=== PATIENT | male | born 1945 | race Caucasian/White ===

== ENCOUNTER 2018-09-29 03:37 | Emergency (ER) | payer MEDICARE, BC ==
[2018-09-29 04:26] LABS: CHLORIDE,CL 104 mmol/L (98-107); SODIUM,NA 142 mmol/L (136-145)
--- NOTE | 2018-09-29 04:45 | EDM.PDOC ---
ED HPI GENERAL MEDICAL PROBLEM - General Chief Complaint: ENT Problem Stated Complaint: nosebleed Time Seen by Provider: 09/29/18 04:13 Source of Information: Reports: Patient History Limitations: Reports: No Limitations - History of Present Illness INITIAL COMMENTS - FREE TEXT/NARRATIVE: Patient comes to ER with right sided nose bleed. Initially started around 8pm last night. Packed it with tissue and was able to stop it. Started again when he removed the packing while getting ready to go to bed. Unable to stop it. Came to ER via EMS. Is on blood thinners. Normally on Coumadin due to heart valve disease. Is currently using Lovenox as he has an angiogram this Wednesday. No history of significant nose bleeds previously. No emesis. No recent colds/nasal trauma. Bleed started after he blew his nose. No other acute changes/complaints. Is on O2 at home and uses CPap at night. - Related Data Allergies Allergy/AdvReac Type Severity Reaction Status Date / Time No Known Allergies Allergy Verified 09/29/18 04:28 Home Meds: Home Meds Albuterol [Ventolin HFA] 2 puff .XX Q4HR PRN 09/29/18 [History] Amoxicillin/Clavulanate K [Augmentin 500-125 MG] 1 tab PO Q8H #15 tab 09/29/18 [ Rx] Enoxaparin [Lovenox] 150 mg SQ BID 09/29/18 [History] Furosemide [Lasix] 20 mg PO DAILY 09/29/18 [History] Losartan/Hydrochlorothiazide [Losartan-HCTZ 100-25 MG] 1 each PO DAILY 09/29/18 [History] Nitroglycerin [Nitrostat] 0.4 mg SL ASDIRECTED PRN 09/29/18 [History] Potassium Chloride 20 meq PO BID 09/29/18 [History] Tiotropium [Spiriva HandiHaler] 18 mcg INH DAILY 09/29/18 [History] Warfarin [Coumadin] 5 mg PO DAILY 09/29/18 [History] Past Medical History Cardiovascular History: Reports: Heart Valve Replacement, Other (See Below) ( aortic and mitral disease.) Endocrine/Metabolic History: Reports: Obesity/BMI 30+ Social & Family History - Tobacco Use Smoking Status *Q: Former Smoker Years of Tobacco use: 52 Used Tobacco, but Quit: Yes Month/Year Tobacco Last Used: 1 Second Hand Smoke Exposure: No ED ROS ENT - Review of Systems Review Of Systems: ROS reveals no pertinent complaints other than HPI. ED EXAM, ENT - Physical Exam Exam: See Below Exam Limited By: No Limitations General Appearance: Alert, No Apparent Distress, Obese Eye Exam: Bilateral Eye: EOMI, PERRL Ears: Normal External Exam Nose: Active Bleeding, Dried Blood, Other (unable to visualized bleed in left nare. No bleeding right nare) Mouth/Throat: Normal Lips, Other (some clotted blood noted at back of throat. ) Head: Atraumatic, Normocephalic Neck: Supple Respiratory/Chest: No Respiratory Distress, Lungs Clear, Normal Breath Sounds, No Accessory Muscle Use Cardiovascular: Other (regular rhythm overall, some premature beats noted. ) GI/Abdominal: Soft, Non-Tender (Male) Exam: Deferred Rectal (Males) Exam: Deferred Back: No: CVA Tenderness (L), CVA Tenderness (R), Muscle Spasm Extremities: Normal Capillary Refill Neurological: Alert, Oriented, Normal Cognition Psychiatric: Normal Affect, Normal Mood Skin: Warm, Dry, Intact, Normal Color ED ENT PROCEDURES - Epistaxis Procedure Indication: Epistaxis, Uncontrolled Recent anticoagulants/antiplatlets: Yes Uncontrolled HTN: No Recent septal/nasal surgery: No Site of bleeding: Left Nare, Posterior Clearing of clots: Patient Blew Nose Posterior packing: Long Inflatable Nasal Tampon Complications: No Course - Vital Signs Last Recorded V/S: Last Vital Signs Temp 36.8 C 09/29/18 03:38 Pulse 60 09/29/18 03:38 Resp 20 09/29/18 03:38 BP 159/104 H 09/29/18 03:38 Pulse Ox 94 L 09/29/18 03:38 - Orders/Labs/Meds Labs: Laboratory Tests 09/29/18 09/29/18 09/29/18 Range/Units 04:05 04:05 04:05 WBC 6.8 (4.0-10.2) K/uL RBC 3.84 L (4.33-5.41) M/uL Hgb 11.7 L (13.1-16.8) g/dL Hct 36.8 L (39.0-49.0) % MCV 95.8 (84.0-98.0) fL MCH 30.5 (28.2-33.3) pg MCHC 31.8 (31.7-36.0) g/dL RDW 14.3 H (11.2-14.1) % Plt Count 230 (150-350) K/uL Neut % (Auto) 60.4 (45.0-80.0) % Lymph % (Auto) 22.0 (10.0-50.0) % [place] % (Auto) 12.6 (2.0-14.0) % Eos % (Auto) 4.6 (0.0-5.0) % Baso % (Auto) 0.4 (0.0-2.0) % Neut # (Auto) 4.09 (1.40-7.00) K/uL Lymph # (Auto) 1.49 (0.50-3.50) K/uL [place] # (Auto) 0.85 (0.00-1.00) K/uL Eos # (Auto) 0.31 (0.00-0.50) K/uL Baso # (Auto) 0.03 (0.00-0.20) K/uL PT 15.6 H (9.5-12.0) SEC INR 1.4 Sodium 142 (136-145) mmol/L Potassium 3.7 (3.5-5.1) mmol/L Chloride 104 (98-107) mmol/L Carbon Dioxide 31.5 (21.0-32.0) mmol/L BUN 26 H (7-18) mg/dL Creatinine 0.86 (0.51-1.17) mg/dL Est Cr Clr Drug Dosing TNP Estimated GFR (MDRD) > 60 mL/min Glucose 120 H (74-106) mg/dL Calcium 9.4 (8.5-10.1) mg/dL Total Bilirubin 0.7 (0.2-1.0) mg/dL AST 25 (15-37) U/L ALT 25 (12-78) U/L Alkaline Phosphatase 90 (46-116) IU/L Total Protein 7.9 (6.4-8.2) g/dL Albumin 3.6 (3.4-5.0) g/dL - Re-Assessments/Exams Free Text/Narrative Re-Assessment/Exam: 09/29/18 04:49 Nasal packing performed with inflatable balloon. Bleed appeared to stop. Patient observed for one hour to see if signs of bleeding from right nare or posterior pharynx. Call placed to [facility] and discussed patient with Dr. King from ENT. He offered to see the patient on Wednesday morning, 10am, in clinic. This is right before patient was to present for angiogram (11am). will remove the packing and re-examine the patient. Departure - Departure Time of Disposition: 05:45 Disposition: Home, Self-Care 01 Condition: Good Clinical Impression: Epistaxis - Discharge Information *PRESCRIPTION DRUG MONITORING PROGRAM REVIEWED*: Not Applicable *COPY OF PRESCRIPTION DRUG MONITORING REPORT IN PATIENT KELLIE: Not Applicable Prescriptions: Amoxicillin/Clavulanate K [Augmentin 500-125 MG] 1 tab PO Q8H #15 tab Instructions: Nosebleed, Adult Referrals: Filipe Stover PA [Primary Care Provider] - Forms: ED Department Discharge Additional Instructions: Call [facility] appointment line this morning and make an appointment to see from ENT at 10am on Wednesday. Tell them that you were in the ER and we spoke to and he said this was ok and formulated this plan. He will remove the packing and look at your nose prior to you having to report for the angiogram. supervisor of operations antibiotics (recommended by ) and take them as directed. You were given a 5 day supply. Ask if you should have a longer course of therapy. Follow up as needed if you have more bleeding or other worsening problems.
== END 2018-09-29 05:50 | disposition home or self-care (01) ==
LOC: LL.ED 03:37
DX: R04.0 Epistaxis (principal); Z99.81 Dependence on supplemental oxygen; Z79.899 Other long term (current) drug therapy; Z79.01 Long term (current) use of anticoagulants; Z87.891 Personal history of nicotine dependence; Z95.4 Presence of other heart-valve replacement
CPT/HCPCS: 30901; 30903; 30905; 36415; 80053; 85025; 85610; 99283; 99284

== ENCOUNTER 2019-11-06 16:07 | Inpatient (IN) | payer MEDICARE, BC ==
[2019-11-06 17:18] LABS: CHLORIDE,CL 107 mmol/L (98-107); SODIUM,NA 145 mmol/L (136-145)
[2019-11-06] MEDS ORDERED: cefTRIAXone 1 GM Vial IM ONE (17:37)
--- NOTE | 2019-11-06 17:37 | EDM.PDOC ---
ED HPI GENERAL MEDICAL PROBLEM - General Chief Complaint: Respiratory Problem Stated Complaint: pneumonia Time Seen by Provider: 11/06/19 16:29 Source of Information: Reports: Patient History Limitations: Reports: No Limitations - History of Present Illness INITIAL COMMENTS - FREE TEXT/NARRATIVE: Pt presents to ER after being seen in clinic Concerned about pneumonia Pt with COPD and on home oxygen Increasing SOB with exertion No fever Has hx/o significant edema See med list Onset: Gradual Duration: Week(s):, Getting Worse Location: Reports: Chest Associated Symptoms: Reports: Cough, Shortness of Breath Treatments CAMPUS AMBASSADOR: Reports: Acetaminophen denies Pain Score (Numeric/FACES): 0 - Related Data Allergies Allergy/AdvReac Type Severity Reaction Status Date / Time atorvastatin [From Lipitor] Allergy Bleeding Verified 11/06/19 16:19 celecoxib [From Celebrex] Allergy Bleeding Verified 11/06/19 16:19 Home Meds: Home Meds Albuterol [Ventolin HFA] 2 puff .XX Q4HR PRN 09/29/18 [History] Furosemide [Lasix] 40 mg PO DAILY 09/29/18 [History] Losartan/Hydrochlorothiazide [Losartan-HCTZ 100-25 MG] 1 each PO DAILY 09/29/18 [History] Nitroglycerin [Nitrostat] 0.4 mg SL ASDIRECTED PRN 09/29/18 [History] Potassium Chloride 20 meq PO BID 09/29/18 [History] Acetaminophen [Acetaminophen Extra Strength] 2 tab PO TID 11/06/19 [History] Amoxicillin/Clavulanate K [Augmentin 500-125 MG] 1 tab PO BID 11/06/19 [History] Lutein/Minerals/Vit A,C & E [Ocuvite] 1 tab PO DAILY 11/06/19 [History] Multivitamin-Min/Iron/FA/Vit K [Multi-Day Plus Minerals Tablet] 1 tab PO BEDTIME 11/06/19 [History] Umeclidinium Brm/Vilanterol Tr [Anoro Ellipta 62.5-25 MCG] 1 puff INH DAILY 05/19 [History] Warfarin [Coumadin] 4 mg PO DAILY 11/06/19 [History] Past Medical History HEENT History: Reports: Other (See Below) Other HEENT History: H/O nosebleeds. Cardiovascular History: Reports: Heart Valve Replacement, Other (See Below) ( aortic and mitral disease.) Respiratory History: Reports: COPD Musculoskeletal History: Reports: Arthritis, Fracture Endocrine/Metabolic History: Reports: Obesity/BMI 30+ - Past Surgical History GI Surgical History: Reports: Colonoscopy Musculoskeletal Surgical History: Reports: Other (See Below) Other Musculoskeletal Surgeries/Procedures:: R foot fractures with surgical repair. ED ROS GENERAL - Review of Systems Review Of Systems: See Below Respiratory: Reports: Shortness of Breath, Cough Cardiovascular: Reports: No Symptoms, Dyspnea on Exertion, Edema GI/Abdominal: Reports: No Symptoms Neurological: Reports: No Symptoms ED EXAM, GENERAL - Physical Exam Exam: See Below Exam Limited By: No Limitations General Appearance: Mild Distress Throat/Mouth: Normal Oropharynx Neck: Supple Respiratory/Chest: Decreased Breath Sounds, Rhonchi Cardiovascular: Regular Rate, Rhythm GI/Abdominal: Non-Tender Extremities: Pedal Edema (4+ edema bilaterally) Neurological: No Motor/Sensory Deficits Course - Vital Signs Last Recorded V/S: Last Vital Signs Temp 98.9 F 11/06/19 16:10 Pulse 77 11/06/19 16:10 Resp 30 H 11/06/19 16:10 BP 161/73 H 11/06/19 16:10 Pulse Ox 96 11/06/19 16:10 - Orders/Labs/Meds Orders: Active Orders 24 hr Category Date Time Status CULTURE BLOOD [BC] Stat Lab 11/06/19 16:45 Received CULTURE BLOOD [BC] Stat Lab 11/06/19 17:08 Received Blood Culture x2 Reflex Set [OM.PC] Stat Oth 11/06/19 16:29 Ordered Labs: Laboratory Tests 11/06/19 11/06/19 11/06/19 Range/Units 16:45 16:45 16:45 WBC 8.2 (4.0-10.2) K/uL RBC 3.44 L (4.33-5.41) M/uL Hgb 10.2 L D (13.1-16.8) g/dL Hct 33.7 L (39.0-49.0) % MCV 98.0 (84.0-98.0) fL MCH 29.7 (28.2-33.3) pg MCHC 30.3 L (31.7-36.0) g/dL RDW 15.6 H (11.2-14.1) % Plt Count 162 (150-350) K/uL Neut % (Auto) 75.8 (45.0-80.0) % Lymph % (Auto) 9.5 L (10.0-50.0) % [place] % (Auto) 9.8 (2.0-14.0) % Eos % (Auto) 4.5 (0.0-5.0) % Baso % (Auto) 0.4 (0.0-2.0) % Neut # (Auto) 6.19 (1.40-7.00) K/uL Lymph # (Auto) 0.78 (0.50-3.50) K/uL [place] # (Auto) 0.80 (0.00-1.00) K/uL Eos # (Auto) 0.37 (0.00-0.50) K/uL Baso # (Auto) 0.03 (0.00-0.20) K/uL PT (9.5-12.0) SEC INR Sodium 145 (136-145) mmol/L Potassium 4.0 (3.5-5.1) mmol/L Chloride 107 (98-107) mmol/L Carbon Dioxide 30.1 (21.0-32.0) mmol/L BUN 24 H (7-18) mg/dL Creatinine 0.84 (0.51-1.17) mg/dL Est Cr Clr Drug Dosing 84.55 mL/min Estimated GFR (MDRD) > 60 mL/min Glucose 101 (74-106) mg/dL Lactic Acid 0.7 (0.4-2.0) mmol/L Calcium 9.0 (8.5-10.1) mg/dL Total Bilirubin 0.7 (0.2-1.0) mg/dL AST 19 (15-37) U/L ALT 16 (12-78) U/L Alkaline Phosphatase 75 (46-116) IU/L NT-Pro-B Natriuret Pep 1769 H (0-125) pg/mL Total Protein 7.4 (6.4-8.2) g/dL Albumin 3.3 L (3.4-5.0) g/dL 11/06/19 Range/Units 16:45 WBC (4.0-10.2) K/uL RBC (4.33-5.41) M/uL Hgb (13.1-16.8) g/dL Hct (39.0-49.0) % MCV (84.0-98.0) fL MCH (28.2-33.3) pg MCHC (31.7-36.0) g/dL RDW (11.2-14.1) % Plt Count (150-350) K/uL Neut % (Auto) (45.0-80.0) % Lymph % (Auto) (10.0-50.0) % [place] % (Auto) (2.0-14.0) % Eos % (Auto) (0.0-5.0) % Baso % (Auto) (0.0-2.0) % Neut # (Auto) (1.40-7.00) K/uL Lymph # (Auto) (0.50-3.50) K/uL [place] # (Auto) (0.00-1.00) K/uL Eos # (Auto) (0.00-0.50) K/uL Baso # (Auto) (0.00-0.20) K/uL PT 19.7 H (9.5-12.0) SEC INR 2.0 Sodium (136-145) mmol/L Potassium (3.5-5.1) mmol/L Chloride (98-107) mmol/L Carbon Dioxide (21.0-32.0) mmol/L BUN (7-18) mg/dL Creatinine (0.51-1.17) mg/dL Est Cr Clr Drug Dosing mL/min Estimated GFR (MDRD) mL/min Glucose (74-106) mg/dL Lactic Acid (0.4-2.0) mmol/L Calcium (8.5-10.1) mg/dL Total Bilirubin (0.2-1.0) mg/dL AST (15-37) U/L ALT (12-78) U/L Alkaline Phosphatase (46-116) IU/L NT-Pro-B Natriuret Pep (0-125) pg/mL Total Protein (6.4-8.2) g/dL Albumin (3.4-5.0) g/dL - Re-Assessments/Exams Free Text/Narrative Re-Assessment/Exam: 11/06/19 17:35 Pt given Rocephin and Solu-medrol in ER See lab and CXR reports Departure - Departure Time of Disposition: 18:00 Disposition: Home, Self-Care 01 Clinical Impression: COPD exacerbation - Discharge Information *PRESCRIPTION DRUG MONITORING PROGRAM REVIEWED*: Not Applicable *COPY OF PRESCRIPTION DRUG MONITORING REPORT IN PATIENT KELLIE: Not Applicable Instructions: Chronic Obstructive Pulmonary Disease, [id number], Chronic Obstructive Pulmonary Disease Exacerbation, [id number] Referrals: PCP,None [Primary Care Provider] - Additional Instructions: Rx Z-emgan Rx Medrol dose megan Follow up in clinic Sepsis Event Note - Evaluation Sepsis Screening Result: No Definite Risk - Focused Exam Vital Signs: Vital Signs Temp Pulse Resp BP Pulse Ox 11/06/19 16:10 98.9 F 77 30 H 161/73 H 96 Date Exam was Performed: 11/06/19 Time Exam was Performed: 17:32 - My Orders Last 24 Hours: My Active Orders 11/06/19 16:29 Blood Culture x2 Reflex Set [OM.PC] Stat 11/06/19 16:45 CULTURE BLOOD [BC] Stat 11/06/19 17:08 CULTURE BLOOD [BC] Stat - Assessment/Plan Last 24 Hours: My Active Orders 11/06/19 16:29 Blood Culture x2 Reflex Set [OM.PC] Stat 11/06/19 16:45 CULTURE BLOOD [BC] Stat 11/06/19 17:08 CULTURE BLOOD [BC] Stat
[2019-11-06] MEDS ORDERED: methylPREDNISolone Sodium Succinate 125 MG/2 ML SDV IM ONE (17:38)
[2019-11-06] MEDS ORDERED: Nitroglycerin 0.4 MG Tab.SL SL PRN (18:55)
[2019-11-06] MEDS ORDERED: Albuterol 8 GM Inhaler INH PRN (18:55)
[2019-11-06] MEDS ORDERED: Albuterol/Ipratropium 3.0-0.5 MG/3 ML Neb Soln NEB PRN (19:00)
--- NOTE | 2019-11-06 19:09 | PCM.HP.2 ---
H&P History of Present Illness - General Date of Service: 11/06/19 Admit Problem/Dx: Admission Diagnosis/Problem Admission Diagnosis/Problem COPD, Moderate chronic obstructive pulmonary disease Source of Information: Patient History Limitations: Reports: No Limitations - History of Present Illness Initial Comments - Free Text/Narative: See ER note for details Onset of Symptoms: Reports: Gradual Duration of Symptoms: Reports: Day(s):, Getting Worse Location: Reports: Chest Associated Symptoms: Reports: Cough, Shortness of Breath denies Pain Score (Numeric/FACES): 0 - Related Data Allergies/Adverse Reactions: Allergies Allergy/AdvReac Type Severity Reaction Status Date / Time atorvastatin [From Lipitor] Allergy Bleeding Verified 11/06/19 16:19 celecoxib [From Celebrex] Allergy Bleeding Verified 11/06/19 16:19 Home Medications: Home Meds Albuterol [Ventolin HFA] 2 puff .XX Q4HR PRN 09/29/18 [History] Furosemide [Lasix] 40 mg PO DAILY 09/29/18 [History] Losartan/Hydrochlorothiazide [Losartan-HCTZ 100-25 MG] 1 each PO DAILY 09/29/18 [History] Nitroglycerin [Nitrostat] 0.4 mg SL ASDIRECTED PRN 09/29/18 [History] Potassium Chloride 20 meq PO BID 09/29/18 [History] Acetaminophen [Acetaminophen Extra Strength] 2 tab PO TID 11/06/19 [History] Amoxicillin/Clavulanate K [Augmentin 500-125 MG] 1 tab PO BID 11/06/19 [History] Lutein/Minerals/Vit A,C & E [Ocuvite] 1 tab PO DAILY 11/06/19 [History] Multivitamin-Min/Iron/FA/Vit K [Multi-Day Plus Minerals Tablet] 1 tab PO BEDTIME 11/06/19 [History] Umeclidinium Brm/Vilanterol Tr [Anoro Ellipta 62.5-25 MCG] 1 puff INH DAILY 05/19 [History] Warfarin [Coumadin] 4 mg PO DAILY 11/06/19 [History] Past Medical History HEENT History: Reports: Other (See Below) Other HEENT History: H/O nosebleeds. Cardiovascular History: Reports: Heart Valve Replacement, Other (See Below) ( aortic and mitral disease.) Respiratory History: Reports: COPD Musculoskeletal History: Reports: Arthritis, Fracture Endocrine/Metabolic History: Reports: Obesity/BMI 30+ - Past Surgical History GI Surgical History: Reports: Colonoscopy Musculoskeletal Surgical History: Reports: Other (See Below) Other Musculoskeletal Surgeries/Procedures:: R foot fractures with surgical repair. H&P Review of Systems - Review of Systems: Review Of Systems: See Below Pulmonary: Reports: Shortness of Breath, Cough Cardiovascular: Reports: Dyspnea on Exertion, Edema Gastrointestinal: Reports: No Symptoms Exam - Exam Exam: See Below - Vital Signs Vital Signs: Last Vital Signs Temp 98.9 F 11/06/19 16:10 Pulse 77 11/06/19 16:10 Resp 30 H 11/06/19 16:10 BP 161/73 H 11/06/19 16:10 Pulse Ox 96 11/06/19 16:10 Weight: 354 lb - Exam Quality Assessment: Supplemental Oxygen General: Alert, Oriented, Mild Distress HEENT: Mucosa Moist & [place] Neck: Supple Lungs: Decreased Breath Sounds, Rhonchi Cardiovascular: Regular Rate GI/Abdominal Exam: Non-Tender Extremities: Pedal Edema, Other (4 + edema) Neurological: Normal Speech Neuro Extensive - Mental Status: Alert, Oriented x3, Normal Mood/Affect - Patient Data Lab Results Last 24 hrs: Laboratory Results - last 24 hr 11/06/19 11/06/19 11/06/19 Range/Units 16:45 16:45 16:45 WBC 8.2 (4.0-10.2) K/uL RBC 3.44 L (4.33-5.41) M/uL Hgb 10.2 L D (13.1-16.8) g/dL Hct 33.7 L (39.0-49.0) % MCV 98.0 (84.0-98.0) fL MCH 29.7 (28.2-33.3) pg MCHC 30.3 L (31.7-36.0) g/dL RDW 15.6 H (11.2-14.1) % Plt Count 162 (150-350) K/uL Neut % (Auto) 75.8 (45.0-80.0) % Lymph % (Auto) 9.5 L (10.0-50.0) % [place] % (Auto) 9.8 (2.0-14.0) % Eos % (Auto) 4.5 (0.0-5.0) % Baso % (Auto) 0.4 (0.0-2.0) % Neut # (Auto) 6.19 (1.40-7.00) K/uL Lymph # (Auto) 0.78 (0.50-3.50) K/uL [place] # (Auto) 0.80 (0.00-1.00) K/uL Eos # (Auto) 0.37 (0.00-0.50) K/uL Baso # (Auto) 0.03 (0.00-0.20) K/uL PT (9.5-12.0) SEC INR Sodium 145 (136-145) mmol/L Potassium 4.0 (3.5-5.1) mmol/L Chloride 107 (98-107) mmol/L Carbon Dioxide 30.1 (21.0-32.0) mmol/L BUN 24 H (7-18) mg/dL Creatinine 0.84 (0.51-1.17) mg/dL Est Cr Clr Drug Dosing 84.55 mL/min Estimated GFR (MDRD) > 60 mL/min Glucose 101 (74-106) mg/dL Lactic Acid 0.7 (0.4-2.0) mmol/L Calcium 9.0 (8.5-10.1) mg/dL Total Bilirubin 0.7 (0.2-1.0) mg/dL AST 19 (15-37) U/L ALT 16 (12-78) U/L Alkaline Phosphatase 75 (46-116) IU/L NT-Pro-B Natriuret Pep 1769 H (0-125) pg/mL Total Protein 7.4 (6.4-8.2) g/dL Albumin 3.3 L (3.4-5.0) g/dL 11/06/19 Range/Units 16:45 WBC (4.0-10.2) K/uL RBC (4.33-5.41) M/uL Hgb (13.1-16.8) g/dL Hct (39.0-49.0) % MCV (84.0-98.0) fL MCH (28.2-33.3) pg MCHC (31.7-36.0) g/dL RDW (11.2-14.1) % Plt Count (150-350) K/uL Neut % (Auto) (45.0-80.0) % Lymph % (Auto) (10.0-50.0) % [place] % (Auto) (2.0-14.0) % Eos % (Auto) (0.0-5.0) % Baso % (Auto) (0.0-2.0) % Neut # (Auto) (1.40-7.00) K/uL Lymph # (Auto) (0.50-3.50) K/uL [place] # (Auto) (0.00-1.00) K/uL Eos # (Auto) (0.00-0.50) K/uL Baso # (Auto) (0.00-0.20) K/uL PT 19.7 H (9.5-12.0) SEC INR 2.0 Sodium (136-145) mmol/L Potassium (3.5-5.1) mmol/L Chloride (98-107) mmol/L Carbon Dioxide (21.0-32.0) mmol/L BUN (7-18) mg/dL Creatinine (0.51-1.17) mg/dL Est Cr Clr Drug Dosing mL/min Estimated GFR (MDRD) mL/min Glucose (74-106) mg/dL Lactic Acid (0.4-2.0) mmol/L Calcium (8.5-10.1) mg/dL Total Bilirubin (0.2-1.0) mg/dL AST (15-37) U/L ALT (12-78) U/L Alkaline Phosphatase (46-116) IU/L NT-Pro-B Natriuret Pep (0-125) pg/mL Total Protein (6.4-8.2) g/dL Albumin (3.4-5.0) g/dL Result Diagrams: 11/06/19 16:45 11/06/19 16:45 Sepsis Event Note - Evaluation Sepsis Screening Result: No Definite Risk - Focused Exam Vital Signs: Vital Signs Temp Pulse Resp BP Pulse Ox 11/06/19 16:10 98.9 F 77 30 H 161/73 H 96 Date Exam was Performed: 11/06/19 Time Exam was Performed: 19:06 - Problem List (1) COPD exacerbation SNOMED Code(s): 140587463 ICD Code: J44.1 - CHRONIC OBSTRUCTIVE PULMONARY DISEASE W (ACUTE) EXACERBATION Status: Acute Current Visit: Yes Problem List Initiated/Reviewed/Updated: Yes Orders Last 24hrs: Active Orders 24 hr Category Date Time Status Patient Status [ADT] Routine ADT 11/06/19 19:00 Ordered Intake and Output [RC] QSHIFT Care 11/06/19 19:01 Ordered Oxygen Therapy [RC] PRN Care 11/06/19 18:53 Ordered Oxygen Therapy [RC] PRN Care 11/06/19 19:00 Ordered Pulse Oximetry [RC] PRN Care 11/06/19 19:01 Ordered RT Aerosol Therapy [RC] ASDIRECTED Care 11/06/19 19:05 Ordered Up With Assistance [RC] ASDIRECTED Care 11/06/19 19:00 Ordered VTE/DVT Education [RC] PER UNIT ROUTINE Care 11/06/19 18:53 Ordered VTE/DVT Education [RC] PER UNIT ROUTINE Care 11/06/19 19:00 Ordered Vital Signs [RC] Q4H Care 11/06/19 18:53 Ordered Vital Signs [RC] Q4H Care 11/06/19 19:00 Ordered CBC WITH AUTO DIFF [HEME] AM Lab 11/07/19 05:11 Ordered COMPREHENSIVE METABOLIC PN,CMP [CHEM] AM Lab 11/07/19 05:11 Ordered CULTURE BLOOD [BC] Stat Lab 11/06/19 16:45 Received CULTURE BLOOD [BC] Stat Lab 11/06/19 17:08 Received Acetaminophen [Tylenol Extra Strength] Med 11/07/19 08:00 Ordered 1,000 mg PO TID Albuterol [Ventolin HFA] Med 11/06/19 18:55 Ordered 2 puff INH Q4HR PRN Albuterol/Ipratropium [DuoNeb 3.0-0.5 MG/3 ML] Med 11/06/19 19:00 Ordered 3 ml NEB Q4H PRN Furosemide [Lasix] Med 11/07/19 08:00 Ordered 40 mg IVPUSH BID Losartan/Hydrochlorothiazide [Losartan-HCTZ 100-25 MG] Med 11/07/19 08:00 Ordered 1 each PO DAILY Lutein/Minerals/Vit A,C & E [Ocuvite] Med 11/07/19 08:00 Ordered 1 tab PO DAILY Multivitamin-Min/Iron/FA/Vit K [Multi-Day Plus Minerals Med 11/06/19 20:00 Ordered Tablet] 1 tab PO BEDTIME Nitroglycerin [Nitrostat] Med 11/06/19 18:55 Ordered 0.4 mg SL ASDIRECTED PRN Potassium Chloride [Potassium Chloride] Med 11/07/19 08:00 Ordered 20 meq PO BID Umeclidinium Brm/Vilanterol Tr [Anoro Ellipta 62.5-25 Med 11/07/19 08:00 Ordered MCG] 1 puff INH DAILY Warfarin Med 11/07/19 08:00 Ordered 4 mg PO DAILY cefTRIAXone [Rocephin] 1 gm Med 11/06/19 19:00 Ordered Sodium Chloride 0.9% [Normal Saline] 100 ml IV Q24H methylPREDNISolone Sod Succ [Solu-MEDROL] Med 11/06/19 19:00 Ordered 125 mg IVPUSH Q12H Blood Culture x2 Reflex Set [OM.PC] Stat Oth 11/06/19 16:29 Ordered Resuscitation Status Routine Resus Stat 11/06/19 18:53 Ordered Medication Orders Acetaminophen (Tylenol Extra Strength) 1,000 mg PO TID SRIDHAR Albuterol (Ventolin Hfa) gm INH Q4HR PRN PRN Reason: Shortness of Breath Albuterol/Ipratropium (Duoneb 3.0-0.5 Mg/3 Ml) 3 ml NEB Q4H PRN PRN Reason: Dyspnea Furosemide (Lasix) 40 mg IVPUSH BID SRIDHAR Ceftriaxone Sodium 1 gm/ (Sodium Chloride) 100 mls @ 200 mls/hr IV Q24H SRIDHAR Methylprednisolone Sodium Succinate (Solu-Medrol) 125 mg IVPUSH Q12H SRIDHAR Nitroglycerin (Nitrostat) 0.4 mg SL ASDIRECTED PRN PRN Reason: Chest Pain Non-Formulary Medication (Losartan/Hydrochlorothiazide [Losartan-Hctz 100-25 Mg] ) 1 each PO DAILY SRIDHAR Non-Formulary Medication (Lutein/Minerals/Vit A,C & E [Ocuvite]) 1 tab PO DAILY SRIDHAR Non-Formulary Medication (Multivitamin-Min/Iron/Fa/Vit K [Multi-Day Plus Minerals Tablet]) 1 tab PO BEDTIME SRIDHAR Non-Formulary Medication (Potassium Chloride [Potassium Chloride]) 20 meq PO BID SRIDHAR Non-Formulary Medication (Warfarin) 4 mg PO DAILY SRIDHAR Umeclidinium/Vilanterol (Anoro Ellipta 62.5-25 Mcg) mcg INH DAILY SRIDHAR Assessment/Plan Comment:: Imp: COPD exacerbation Plan: IV antibiotics IV Lasix IV Solu-medrol
[2019-11-06] MEDS: cefTRIAXone 1 GM in Sodium Chloride 0.9% 100 ML IV SCH (19:16)
[2019-11-06] MEDS: methylPREDNISolone Sodium Succinate 125 MG/2 ML SDV IVPUSH SCH (19:17)
[2019-11-06] MEDS ORDERED: Non-Formulary Medication 1 Each (Multivitamin-Min/Iron/Fa/Vit K [Multi-Day Plus Minerals T PO SCH (20:00)
[2019-11-06] MEDS: Furosemide 40 MG/4 ML VIAL IVPUSH SCH (20:04)
[2019-11-06] MEDS ORDERED: Warfarin 2 MG Tab PO ONE (21:51)
[2019-11-07 07:45] LABS: CHLORIDE,CL 106 mmol/L (98-107); SODIUM,NA 144 mmol/L (136-145)
[2019-11-07] MEDS ORDERED: Non-Formulary Medication 1 Each (Lutein/Minerals/Vit A,C & E [Ocuvite] 1 TAB) PO SCH (08:00)
[2019-11-07] MEDS ORDERED: Hydrochlorothiazide 25 MG Tab PO SCH (08:00)
[2019-11-07] MEDS ORDERED: Non-Formulary Medication 1 Each (Potassium Chloride [Potassium Chloride] 20 MEQ) PO SCH (08:00)
[2019-11-07] MEDS ORDERED: Non-Formulary Medication 1 Each (Warfarin 4 MG) PO SCH (08:00)
[2019-11-07] MEDS ORDERED: Potassium Chloride 20 MEQ Tab.ER PO SCH (08:13)
[2019-11-07] MEDS: Umeclidinium Brm/Vilanterol Tr 62.5-25 MCG 7 Puff Inhaler INH SCH (08:16)
[2019-11-07] MEDS: methylPREDNISolone Sodium Succinate 125 MG/2 ML SDV IVPUSH SCH ×2 (08:16→19:25)
[2019-11-07] MEDS: Furosemide 40 MG/4 ML VIAL IVPUSH SCH ×3 (08:17→18:18)
[2019-11-07] MEDS: Acetaminophen 500 MG Tab PO SCH ×3 (08:18→18:18)
[2019-11-07] MEDS: Losartan 50 MG Tab PO SCH (08:50)
[2019-11-07] MEDS: Lutein/Minerals/Vitamin C/Vitamin E Acetate Cap PO SCH (08:52)
[2019-11-07] MEDS ORDERED: Albuterol 0.083% 2.5 MG/3 ML Neb Soln INH PRN (10:00)
[2019-11-07] MEDS ORDERED: Isopropyl Myristate/Mineral Oil/Water Lotion 240 ML Bottle TOP SCH (11:15)
[2019-11-07] MEDS: Potassium Chloride 20 MEQ Tab.ER PO SCH ×2 (11:39→18:21)
[2019-11-07] MEDS: Dextromethorphan/guaiFENesin 600-30 MG Tab.ER PO SCH ×2 (11:39→18:19)
--- NOTE | 2019-11-07 12:20 | PCM.PN ---
- General Info Date of Service: 11/07/19 Admission Dx/Problem (Free Text): Admission Diagnosis/Problem 1. Bilateral pneumonia 2. O2 dependent COPD exacerbation with hypoxia 3. CHF Functional Status: Reports: Pain Controlled, Tolerating Diet, Ambulating, Urinating, Incentive Spirometry. Denies: New Symptoms Pain Score: 0 - Review of Systems General: Reports: Weakness (Mild generalized). Denies: Fever, Fatigue, Malaise , Chills, Night Sweats HEENT: Reports: Glasses. Denies: Contact Lenses, Dysphasia, Ear Pain, Eye Pain , Headaches, Post Nasal Drip, Sinus Congestion, Sore Throat, Rhinitis, Visual Changes Pulmonary: Reports: Shortness of Breath, Cough, Wheezing. Denies: Pleuritic Chest Pain, Sputum, Hemoptysis Cardiovascular: Reports: Dyspnea on Exertion, Edema (Severe dependent). Denies : Chest Pain, Palpitations, Orthopnea, Lightheadedness Gastrointestinal: Reports: No Symptoms, Other (Normal bowel movement today). Denies: Abdominal Pain, Constipation, Decreased Appetite, Diarrhea, Difficulty Swallowing, Flatus, Hematochezia, Melena, Nausea, Vomiting Genitourinary: Reports: No Symptoms. Denies: Dysuria, Frequency, Burning, Pain , Urgency, Hematuria, Retention, Flank Pain Musculoskeletal: Reports: No Symptoms. Denies: Neck Pain, Shoulder Pain, Arm Pain, Back Pain, Leg Pain Skin: Reports: No Symptoms. Denies: Diaphoresis, Bruising Neurological: Reports: Difficulty Walking (Stable with current walker use), Weakness. Denies: Confusion, Dizziness, Headache, Numbness, Paresthesia, Change in Speech, Gait Disturbance Psychiatric: Reports: No Symptoms. Denies: Confusion, Depression, Anxiety, Agitation, Cravings, Hallucinations - Patient Data Vitals - Most Recent: Last Vital Signs Temp 36.3 C 11/07/19 12:00 Pulse 58 L 11/07/19 12:00 Resp 17 11/07/19 12:00 BP 156/78 H 11/07/19 12:00 Pulse Ox 97 11/07/19 12:00 Vital Signs - 24 hr 11/06/19 11/06/19 11/07/19 16:10 20:00 00:00 Temperature [ 37.2 C 36.2 C 37.1 C Temporal] Pulse, 77 Peripheral [ Apical] Pulse, 83 Peripheral [ Pulse Oximetry] Respiratory 30 H 20 24 H Rate Blood Pressure Blood Pressure 161/73 H 159/88 H 132/66 [Right Upper Arm] O2 Sat by Pulse 96 97 96 Oximetry 11/07/19 11/07/19 11/07/19 04:00 08:00 08:50 Temperature [ 36.4 C 36.3 C Temporal] Pulse, Peripheral [ Apical] Pulse, 65 61 Peripheral [ Pulse Oximetry] Respiratory 24 H 18 Rate Blood Pressure 157/79 H Blood Pressure 157/69 H 182/77 H [Right Upper Arm] O2 Sat by Pulse 96 96 Oximetry 11/07/19 12:00 Temperature [ 36.3 C Temporal] Pulse, Peripheral [ Apical] Pulse, 58 L Peripheral [ Pulse Oximetry] Respiratory 17 Rate Blood Pressure Blood Pressure 156/78 H [Right Upper Arm] O2 Sat by Pulse 97 Oximetry Weight - Most Recent: 165.244 kg I&O - Last 24 Hours: Intake & Output 11/06/19 11/07/19 11/07/19 22:59 06:59 14:59 Intake Total 051 243 0519 Output Total 675 208 9575 Balance -551 -200 -560 Imaging Impressions - Last 24 Hours: None Lab Results Last 24 Hours: Laboratory Results - last 24 hr 11/06/19 11/06/19 11/06/19 Range/Units 16:45 16:45 16:45 WBC 8.2 (4.0-10.2) K/uL RBC 3.44 L (4.33-5.41) M/uL Hgb 10.2 L D (13.1-16.8) g/dL Hct 33.7 L (39.0-49.0) % MCV 98.0 (84.0-98.0) fL MCH 29.7 (28.2-33.3) pg MCHC 30.3 L (31.7-36.0) g/dL RDW 15.6 H (11.2-14.1) % Plt Count 162 (150-350) K/uL Neut % (Auto) 75.8 (45.0-80.0) % Lymph % (Auto) 9.5 L (10.0-50.0) % Fisher % (Auto) 9.8 (2.0-14.0) % Eos % (Auto) 4.5 (0.0-5.0) % Baso % (Auto) 0.4 (0.0-2.0) % Neut # (Auto) 6.19 (1.40-7.00) K/uL Lymph # (Auto) 0.78 (0.50-3.50) K/uL Fisher # (Auto) 0.80 (0.00-1.00) K/uL Eos # (Auto) 0.37 (0.00-0.50) K/uL Baso # (Auto) 0.03 (0.00-0.20) K/uL PT (9.5-12.0) SEC INR Sodium 145 (136-145) mmol/L Potassium 4.0 (3.5-5.1) mmol/L Chloride 107 (98-107) mmol/L Carbon Dioxide 30.1 (21.0-32.0) mmol/L BUN 24 H (7-18) mg/dL Creatinine 0.84 (0.51-1.17) mg/dL Est Cr Clr Drug Dosing 84.55 mL/min Estimated GFR (MDRD) > 60 mL/min Glucose 101 (74-106) mg/dL Lactic Acid 0.7 (0.4-2.0) mmol/L Calcium 9.0 (8.5-10.1) mg/dL Total Bilirubin 0.7 (0.2-1.0) mg/dL AST 19 (15-37) U/L ALT 16 (12-78) U/L Alkaline Phosphatase 75 (46-116) IU/L NT-Pro-B Natriuret Pep 1769 H (0-125) pg/mL Total Protein 7.4 (6.4-8.2) g/dL Albumin 3.3 L (3.4-5.0) g/dL 11/06/19 11/07/19 11/07/19 Range/Units 16:45 07:00 07:00 WBC 6.9 (4.0-10.2) K/uL RBC 3.70 L (4.33-5.41) M/uL Hgb 10.8 L (13.1-16.8) g/dL Hct 36.1 L (39.0-49.0) % MCV 97.6 (84.0-98.0) fL MCH 29.2 (28.2-33.3) pg MCHC 29.9 L (31.7-36.0) g/dL RDW 15.4 H (11.2-14.1) % Plt Count 176 (150-350) K/uL Neut % (Auto) 88.8 H (45.0-80.0) % Lymph % (Auto) 10.0 (10.0-50.0) % Fisher % (Auto) 1.0 L (2.0-14.0) % Eos % (Auto) 0.1 (0.0-5.0) % Baso % (Auto) 0.1 (0.0-2.0) % Neut # (Auto) 6.12 (1.40-7.00) K/uL Lymph # (Auto) 0.69 (0.50-3.50) K/uL Fisher # (Auto) 0.07 (0.00-1.00) K/uL Eos # (Auto) 0.01 (0.00-0.50) K/uL Baso # (Auto) 0.01 (0.00-0.20) K/uL PT 19.7 H (9.5-12.0) SEC INR 2.0 Sodium 144 (136-145) mmol/L Potassium 4.2 (3.5-5.1) mmol/L Chloride 106 (98-107) mmol/L Carbon Dioxide 30.4 (21.0-32.0) mmol/L BUN 23 H (7-18) mg/dL Creatinine 0.78 (0.51-1.17) mg/dL Est Cr Clr Drug Dosing 91.05 mL/min Estimated GFR (MDRD) > 60 mL/min Glucose 142 H (74-106) mg/dL Lactic Acid (0.4-2.0) mmol/L Calcium 9.1 (8.5-10.1) mg/dL Total Bilirubin 0.7 (0.2-1.0) mg/dL AST 22 (15-37) U/L ALT 17 (12-78) U/L Alkaline Phosphatase 84 (46-116) IU/L NT-Pro-B Natriuret Pep (0-125) pg/mL Total Protein 7.8 (6.4-8.2) g/dL Albumin 3.6 (3.4-5.0) g/dL Abhijit Results Last 24 Hours: None Med Orders - Current: Current Medications Acetaminophen (Tylenol Extra Strength) 1,000 mg PO TID [facility] Last Admin: 11/07/19 11:38 Dose: 1,000 mg Albuterol (Proventil Neb Soln) 2.5 mg INH Q2H PRN PRN Reason: SHORTNESS OF BREATH Albuterol/Ipratropium (Duoneb 3.0-0.5 Mg/3 Ml) 3 ml NEB Q4H PRN PRN Reason: Dyspnea Albuterol/Ipratropium (Duoneb 3.0-0.5 Mg/3 Ml) 3 ml NEB Q6HRRT [facility] Furosemide (Lasix) 40 mg IVPUSH TID [facility] Last Admin: 11/07/19 11:39 Dose: 40 mg Guaifenesin/Dextromethorphan (Mucinex Dm Er 600-30 Mg) 1 tab PO BID [facility] Last Admin: 11/07/19 11:39 Dose: 1 tab Ceftriaxone Sodium 1 gm/ (Sodium Chloride) 100 mls @ 200 mls/hr IV Q24H [facility] Last Admin: 11/06/19 19:16 Dose: Not Given Losartan Potassium (Cozaar) 100 mg PO DAILY [facility] Last Admin: 11/07/19 08:50 Dose: 100 mg Methylprednisolone Sodium Succinate (Solu-Medrol) 125 mg IVPUSH Q12H [facility] Last Admin: 11/07/19 08:16 Dose: 125 mg Multivitamins/Minerals/Vitamin C (Tab-A-Thom) 1 tab PO BEDTIME [facility] Nitroglycerin (Nitrostat) 0.4 mg SL ASDIRECTED PRN PRN Reason: Chest Pain Potassium Chloride (Klor-Con M20) 20 meq PO TID [facility] Last Admin: 11/07/19 11:39 Dose: 20 meq Umeclidinium/Vilanterol (Anoro Ellipta 62.5-25 Mcg) 0 mcg INH DAILY [facility] Last Admin: 11/07/19 08:16 Dose: 1 inh Vit C/Vit E/Zinc/Copper/Lutein (Ocuvite Lutein) 1 each PO DAILY [facility] Last Admin: 11/07/19 08:52 Dose: 1 each Warfarin Sodium (Coumadin) 4 mg PO DAILY@1800 [facility] Discontinued Medications Albuterol (Ventolin Hfa) 0 gm INH Q4HR PRN PRN Reason: Shortness of Breath Ceftriaxone Sodium (Rocephin) 1 gm IM ONETIME ONE Stop: 11/06/19 17:38 Last Admin: 11/06/19 18:03 Dose: 1 gm Furosemide (Lasix) 40 mg IVPUSH BID [facility] Last Admin: 11/07/19 08:17 Dose: 40 mg Hydrochlorothiazide (Hydrochlorothiazide) 25 mg PO DAILY [facility] Last Admin: 11/07/19 08:51 Dose: 25 mg Lidocaine HCl (Xylocaine-Mpf 1%) Confirm Administered Dose 5 ml .ROUTE .STK-MED ONE Stop: 11/06/19 17:57 Last Admin: 11/06/19 19:17 Dose: Not Given Lidocaine HCl (Xylocaine-Mpf 1%) 5 ml INJECT ONETIME ONE Stop: 11/06/19 18:19 Last Admin: 11/06/19 18:25 Dose: 2.1 ml Methylprednisolone Sodium Succinate (Solu-Medrol) 125 mg IM ONETIME ONE Stop: 11/06/19 17:39 Last Admin: 11/06/19 18:02 Dose: 125 mg Non-Formulary Medication (Losartan/Hydrochlorothiazide [Losartan-Hctz 100-25 Mg] ) 1 each PO DAILY [facility] Last Admin: 11/07/19 09:20 Dose: Not Given Non-Formulary Medication (Lutein/Minerals/Vit A,C & E [Ocuvite]) 1 tab PO DAILY [facility] Last Admin: 11/07/19 09:20 Dose: Not Given Non-Formulary Medication (Multivitamin-Min/Iron/Fa/Vit K [Multi-Day Plus Minerals Tablet]) 1 tab PO BEDTIME [facility] Last Admin: 11/06/19 20:03 Dose: Not Given Non-Formulary Medication (Potassium Chloride [Potassium Chloride]) 20 meq PO BID [facility] Last Admin: 11/07/19 09:20 Dose: Not Given Non-Formulary Medication (Warfarin) 4 mg PO DAILY [facility] Potassium Chloride (Klor-Con M20) 20 meq PO BID [facility] Last Admin: 11/07/19 08:51 Dose: 20 meq Warfarin Sodium (Coumadin) 8 mg PO ONETIME ONE Stop: 11/06/19 21:52 Last Admin: 11/06/19 22:18 Dose: 8 mg - Exam Quality Assessment: Supplemental Oxygen, DVT Prophylaxis. No: Central Line/PICC , Urine Catheter, Skin Breakdown General: Alert, Oriented, Cooperative, No Acute Distress HEENT: Pupils Equal, Pupils Reactive, EOMI, Mucous Membr. Moist/[place], Other ( Patient wearing glasses. No dentition) Neck: Supple, Trachea Midline, No JVD, No Thyromegaly, Carotid Bruit (Mild bilateral carotid bruits). No: Lymphadenopathy Lungs: Normal Respiratory Effort, Rales (Mild diffuse bilateral), Rhonchi ( Occasional diffuse bilateral diffuse bilateral), Wheezing (Occasional diffuse bilateral). No: Rub Cardiovascular: Regular Rhythm, Irregular Rhythm, Other (Mechanical mitral valve click noted ). No: Gallops, Rubs GI/Abdominal Exam: Normal Bowel Sounds, Soft, Non-Tender, No Organomegaly, No Distention, No Abnormal Bruit, No Mass, Pelvis Stable, Other (Obese). No: Guarding (Male) Exam: Deferred Back Exam: Normal Inspection, Full Range of Motion. No: CVA Tenderness (L), CVA Tenderness (R), Muscle Spasm Extremities: Normal Range of Motion, Pedal Edema (Severe lymphedema of the lower extremities). No: Non-Tender, Normal Capillary Refill, Magdalena's Sign Peripheral Pulses: 1+: Dorsalis Pedis (L), Dorsalis Pedis (R), 2+: Radial (L), Radial (R) Skin: Warm, Dry, Intact. No: Ecchymosis Neurological: No New Focal Deficit Psy/Mental Status: Alert, Normal Affect, Normal Mood. No: Agitated, Hallucinations, Withdrawal Symptoms Sepsis Event Note - Evaluation Sepsis Screening Result: No Definite Risk - Focused Exam Vital Signs: Vital Signs Temp Pulse Resp BP BP Pulse Ox 11/07/19 12:00 36.3 C 58 L 17 156/78 H 97 11/07/19 08:50 157/79 H 11/07/19 08:00 36.3 C 61 18 182/77 H 96 11/07/19 04:00 36.4 C 65 24 H 157/69 H 96 Date Exam was Performed: 11/07/19 Time Exam was Performed: 12:33 - Problem List & Annotations (1) Pneumonia SNOMED Code(s): 577427231 Code(s): J18.9 - PNEUMONIA, UNSPECIFIED ORGANISM Status: Acute Current Visit: Yes Onset Date: ~11/06/19 Qualifiers: Pneumonia type: due to unspecified organism Laterality: bilateral Lung location: unspecified part of lung Qualified Code(s): J18.9 - Pneumonia, unspecified organism (2) COPD (chronic obstructive pulmonary disease) SNOMED Code(s): 70593821 Code(s): J44.9 - CHRONIC OBSTRUCTIVE PULMONARY DISEASE, UNSPECIFIED Status : Acute Priority: High Current Visit: Yes Qualifiers: COPD type: COPD with acute lower respiratory infection Qualified Code(s): J44.0 - Chronic obstructive pulmonary disease with (acute) lower respiratory infection Annotation/Comment:: Known O2 dependent COPD with exacerbation and significant hypoxia prior to admission secondary to his current pneumonia and CHF. Continue IV Rocephin and nebulizer therapy with sputum yet to be obtained. Patient feels better since admission. (3) CHF (congestive heart failure) SNOMED Code(s): 74722673 Code(s): I50.9 - HEART FAILURE, UNSPECIFIED Status: Chronic Current Visit : Yes Qualifiers: Heart failure type: combined systolic and diastolic Heart failure chronicity: acute on chronic Qualified Code(s): I50.43 - Acute on chronic combined systolic (congestive) and diastolic (congestive) heart failure Annotation/Comment:: IV Lasix therapy initiated on admission, however this will be increased secondary to significant lymphedema and recent weight gain. Lisandro wraps will be used as compression for his lower extremities. The patient and his were counseled on 11/06 concerning the importance of daily weights and notify her regular provider, if he gains more than 5 pounds on any day. No chest pain or anginal complaints. Repeat cardiac enzymes, x-ray, etc. tomorrow with additional EKG. (4) Comfort measures only status SNOMED Code(s): 62782278278018 Code(s): Z51.5 - ENCOUNTER FOR PALLIATIVE CARE Status: Chronic Priority: Medium Current Visit: Yes Annotation/Comment:: Comfort care status confirmed with the patient and his today. No further echocardiogram, etc. based on their wishes. (5) Atrial fibrillation SNOMED Code(s): 58388377 Code(s): I48.91 - UNSPECIFIED ATRIAL FIBRILLATION Status: Chronic Priority: Medium Current Visit: Yes Qualifiers: Atrial fibrillation type: longstanding persistent Qualified Code(s): I48.11 - Longstanding persistent atrial fibrillation Annotation/Comment:: INR 2.0 on admission. (6) Valvular heart disease SNOMED Code(s): 913819 Code(s): I38 - ENDOCARDITIS, VALVE UNSPECIFIED Status: Chronic Priority: Medium Current Visit: Yes Annotation/Comment:: Note status post mechanical mitral valve replacement with subsequent porcine aortic valve replacement. INR is somewhat subtherapeutic secondary to his mechanical valve replacement as above, however no change for now secondary to current IV Rocephin therapy. INR to be repeated in the a.m.. No chest pain or anginal type symptoms (7) Osteoarthritis SNOMED Code(s): 494798550 Code(s): M19.90 - UNSPECIFIED OSTEOARTHRITIS, UNSPECIFIED SITE Status: Chronic Priority: Medium Current Visit: Yes Qualifiers: Osteoarthritis location: multiple joints Osteoarthritis type: primary Qualified Code(s): M15.0 - Primary generalized (osteo)arthritis Annotation/Comment:: PT and OT to be initiated secondary to some generalized weakness with patient currently having a walker chair. Stable by history and prior to admission. (8) Anemia SNOMED Code(s): 794205931 Code(s): D64.9 - ANEMIA, UNSPECIFIED Status: Chronic Current Visit: Yes Qualifiers: Anemia type: unspecified type Qualified Code(s): D64.9 - Anemia, unspecified Annotation/Comment:: Stable with iron studies, vitamin B 12 level, and folic acid level to be conducted on 11/07. No evidence of acute GI bleed, etc. (9) Hypoalbuminemia SNOMED Code(s): 558363136 Code(s): E88.09 - OTH DISORDERS OF PLASMA-PROTEIN METABOLISM, NEC Status: Acute Priority: Medium Current Visit: Yes Onset Date: 11/06/19 Annotation/Comment:: Normalized on 11/07/19. Observe for now. (10) Hypertension SNOMED Code(s): 42204990 Code(s): I10 - ESSENTIAL (PRIMARY) HYPERTENSION Status: Chronic Priority : Medium Current Visit: Yes Qualifiers: Hypertension type: essential hypertension Qualified Code(s): I10 - Essential (primary) hypertension Annotation/Comment:: Somewhat elevated during early phases of hospitalization. Continue to observe closely. Note increased Lasix therapy. - Problem List Review Problem List Initiated/Reviewed/Updated: Yes - My Orders Last 24 Hours: My Active Orders 11/07/19 10:00 Albuterol [Proventil Neb Soln] 2.5 mg INH Q2H PRN 11/07/19 10:09 CULTURE SPUTUM + SMEAR [RM] Routine Comfort Measures [OM.PC] Routine 11/07/19 10:12 RT Aerosol Therapy [RC] ASDIRECTED 11/07/19 10:15 Dextromethorphan/guaiFENesin [Mucinex DM ER 600-30 MG] 1 tab PO BID 11/07/19 10:16 Cardiac Monitoring [RC] . DIRECTED 11/07/19 11:10 LISANDRO Bandage [Elastic Wrap] [OM.PC] Routine 11/07/19 12:00 Furosemide [Lasix] 40 mg IVPUSH TID Potassium Chloride [Klor-Con M20] 20 meq PO TID 11/07/19 14:00 Albuterol/Ipratropium [DuoNeb 3.0-0.5 MG/3 ML] 3 ml NEB Q6HRRT 11/07/19 Breakfast Fluid Restriction [DIET] 11/08/19 05:11 EKG Documentation Completion [RC] ASDIRECTED Chest 2V [CR] Routine BASIC METABOLIC PANEL,BMP [CHEM] Routine CBC WITH AUTO DIFF [HEME] Routine CK W CKMB [CHEM] Routine GLYCOSYLATED HEMOGLOBIN,HGBA1C [CHEM] Routine INR,PT,PROTHROMBIN TIME [COAG] Routine MAGNESIUM [CHEM] Routine PRO B-TYPE NATRIUR PEPT,BNPPRO [CHEM] Routine TROPONIN I [CHEM] Routine URIC ACID [CHEM] Routine EKG 12 Lead [EK] Routine - Assessment Assessment:: As above. - Plan Plan:: As above. Extensive precautions were given to the patient and his , who are in agreement with the treatment plan. The patient will require about 3-4 days of inpatient/acute care secondary to multiple health problems as above.
[2019-11-07] MEDS: Albuterol/Ipratropium 3.0-0.5 MG/3 ML Neb Soln NEB SCH ×2 (13:33→19:27)
[2019-11-07] MEDS: Warfarin 2 MG Tab PO SCH (18:20)
[2019-11-07] MEDS: Multivitamin Tab PO SCH (19:26)
[2019-11-07] MEDS: cefTRIAXone 1 GM in Sodium Chloride 0.9% 100 ML IV SCH (19:27)
[2019-11-08] MEDS: Albuterol/Ipratropium 3.0-0.5 MG/3 ML Neb Soln NEB SCH ×4 (01:09→19:21)
[2019-11-08 06:52] LABS: HEMOGLOBIN A1C 5.8 % (4.3-5.7)
[2019-11-08] MEDS: Furosemide 40 MG/4 ML VIAL IVPUSH SCH ×3 (07:44→17:34)
[2019-11-08] MEDS: Dextromethorphan/guaiFENesin 600-30 MG Tab.ER PO SCH ×2 (07:44→17:33)
[2019-11-08] MEDS: Losartan 50 MG Tab PO SCH (07:45)
[2019-11-08] MEDS: methylPREDNISolone Sodium Succinate 125 MG/2 ML SDV IVPUSH SCH ×2 (07:45→19:22)
[2019-11-08] MEDS: Potassium Chloride 20 MEQ Tab.ER PO SCH ×3 (07:46→17:34)
[2019-11-08] MEDS: Acetaminophen 500 MG Tab PO SCH ×3 (07:46→17:33)
[2019-11-08] MEDS: Umeclidinium Brm/Vilanterol Tr 62.5-25 MCG 7 Puff Inhaler INH SCH (07:48)
[2019-11-08] MEDS: Lutein/Minerals/Vitamin C/Vitamin E Acetate Cap PO SCH (07:48)
[2019-11-08] MEDS: Sodium Chloride 0.9% 10 ML Syringe FLUSH SCH ×2 (07:51→19:23)
[2019-11-08 07:58] LABS: CHLORIDE,CL 104 mmol/L (98-107); SODIUM,NA 143 mmol/L (136-145)
--- NOTE | 2019-11-08 10:25 | PCM.PN ---
- General Info Date of Service: 11/08/19 Admission Dx/Problem (Free Text): Admission Diagnosis/Problem 1. Bilateral pneumonia 2. O2 dependent COPD exacerbation with hypoxia 3. CHF Functional Status: Reports: Pain Controlled, Tolerating Diet, Ambulating, Urinating, Incentive Spirometry. Denies: New Symptoms Pain Score: 5 - Review of Systems General: Denies: Fever, Weakness, Fatigue, Chills, Night Sweats, Appetite (Good) HEENT: Reports: Glasses. Denies: Dysphasia, Ear Pain, Eye Pain, Headaches, Post Nasal Drip, Sinus Congestion, Sore Throat, Rhinitis, Visual Changes Pulmonary: Reports: Shortness of Breath, Cough. Denies: Sputum, Hemoptysis, Wheezing Cardiovascular: Reports: Dyspnea on Exertion, Orthopnea, Edema (Severe dependent ). Denies: Chest Pain, Palpitations, PND, Lightheadedness Gastrointestinal: Reports: No Symptoms, Other (Normal bowel movement earlier this morning). Denies: Abdominal Pain, Constipation, Decreased Appetite, Diarrhea, Difficulty Swallowing, Flatus, Hematochezia, Melena, Nausea, Vomiting Genitourinary: Reports: No Symptoms. Denies: Dysuria, Frequency, Burning, Pain , Urgency, Incontinence, Hematuria, Retention, Flank Pain Musculoskeletal: Reports: Shoulder Pain (Stable able chronic bilateral right greater than left). Denies: Neck Pain, Arm Pain, Back Pain, Leg Pain, Joint Swelling Skin: Reports: No Symptoms. Denies: Diaphoresis, Bruising, Pruritis Neurological: Reports: No Symptoms. Denies: Confusion, Dizziness, Headache, Numbness, Paresthesia, Tingling Psychiatric: Reports: No Symptoms. Denies: Confusion, Depression, Anxiety, Agitation, Cravings, Hallucinations - Patient Data Vitals - Most Recent: Last Vital Signs Temp 36.4 C 11/08/19 08:00 Pulse 80 11/08/19 08:00 Resp 18 11/08/19 08:00 BP 148/79 H 11/08/19 08:00 Pulse Ox 96 11/08/19 08:00 Vital Signs - 24 hr 11/07/19 11/07/19 11/08/19 12:00 16:00 00:00 Temperature [ 36.3 C 36.1 C 36.9 C Temporal] Pulse, 94 Peripheral [ Apical] Pulse, 58 L 68 Peripheral [ Pulse Oximetry] Respiratory 17 20 20 Rate Blood Pressure Blood Pressure 156/78 H 152/83 H 143/65 H [Right Upper Arm] O2 Sat by Pulse 97 90 L 95 Oximetry 11/08/19 11/08/19 11/08/19 04:00 07:45 08:00 Temperature [ 36.6 C 36.4 C Temporal] Pulse, Peripheral [ Apical] Pulse, 64 80 Peripheral [ Pulse Oximetry] Respiratory 18 18 Rate Blood Pressure 148/79 H Blood Pressure 140/72 148/79 H [Right Upper Arm] O2 Sat by Pulse 97 96 Oximetry Weight - Most Recent: 164.745 kg I&O - Last 24 Hours: Intake & Output 11/07/19 11/08/19 11/08/19 22:59 06:59 14:59 Intake Total 300 600 Output Total 1250 750 475 Balance -1250 -450 125 Imaging Impressions - Last 24 Hours: ekg monitor tech shows stable atrial fibrillation with heart rates in the 70s to 80s at rest with occasional mostly uniform PVCs. Occasional tachycardia in the 120s with ambulation Chest x-ray, PA and lateral, shows status post medial sternotomy with severe cardiomegaly and moderate centralized CHF, COPD, and possible pulmonary hypertension. Mild bilateral pleural effusions, right greater than left, with bilateral lower lobe atelectasis versus infiltrates. Her densities noted 2 in the right lower lobe versus right lower rib regions of unknown character, although these were not mentioned in the official chest x-ray report. Lab Results Last 24 Hours: Laboratory Results - last 24 hr 11/08/19 11/08/19 11/08/19 Range/Units 06:41 06:41 06:41 WBC 10.0 (4.0-10.2) K/uL RBC 3.52 L (4.33-5.41) M/uL Hgb 10.5 L (13.1-16.8) g/dL Hct 33.8 L (39.0-49.0) % MCV 96.0 (84.0-98.0) fL MCH 29.8 (28.2-33.3) pg MCHC 31.1 L (31.7-36.0) g/dL RDW 15.6 H (11.2-14.1) % Plt Count 173 (150-350) K/uL Neut % (Auto) 88.4 H (45.0-80.0) % Lymph % (Auto) 5.3 L (10.0-50.0) % [place] % (Auto) 6.2 (2.0-14.0) % Eos % (Auto) 0.0 (0.0-5.0) % Baso % (Auto) 0.1 (0.0-2.0) % Neut # (Auto) 8.86 H (1.40-7.00) K/uL Lymph # (Auto) 0.53 (0.50-3.50) K/uL [place] # (Auto) 0.62 (0.00-1.00) K/uL Eos # (Auto) 0.00 (0.00-0.50) K/uL Baso # (Auto) 0.01 (0.00-0.20) K/uL PT 25.6 H (9.5-12.0) SEC INR 2.6 Sodium 143 (136-145) mmol/L Potassium 3.5 (3.5-5.1) mmol/L Chloride 104 (98-107) mmol/L Carbon Dioxide 31.4 (21.0-32.0) mmol/L BUN 32 H (7-18) mg/dL Creatinine 0.90 (0.51-1.17) mg/dL Est Cr Clr Drug Dosing 78.91 mL/min Estimated GFR (MDRD) > 60 mL/min Glucose 154 H (74-106) mg/dL Hemoglobin A1c (4.3-5.7) % Uric Acid 5.8 (2.6-7.2) mg/dL Calcium 9.2 (8.5-10.1) mg/dL Magnesium 2.0 (1.8-2.4) mg/dL Iron (50-175) ug/dL TIBC (250-450) ug/dL % Saturation Ferritin (8-388) ng/mL Creatine Kinase 201 (26-308) U/L Creatine Kinase Index 1.1 (0.0-2.5) % CK-MB (CK-2) 2.20 (0.00-3.60) ng/mL Troponin I 0.018 (0.000-0.056) ng/mL NT-Pro-B Natriuret Pep 3354 H (0-125) pg/mL Vitamin B12 288 (193-986) pg/mL Folate 21.6 (8.6-58.9) ng/mL 11/08/19 11/08/19 Range/Units 06:41 06:41 WBC (4.0-10.2) K/uL RBC (4.33-5.41) M/uL Hgb (13.1-16.8) g/dL Hct (39.0-49.0) % MCV (84.0-98.0) fL MCH (28.2-33.3) pg MCHC (31.7-36.0) g/dL RDW (11.2-14.1) % Plt Count (150-350) K/uL Neut % (Auto) (45.0-80.0) % Lymph % (Auto) (10.0-50.0) % [place] % (Auto) (2.0-14.0) % Eos % (Auto) (0.0-5.0) % Baso % (Auto) (0.0-2.0) % Neut # (Auto) (1.40-7.00) K/uL Lymph # (Auto) (0.50-3.50) K/uL [place] # (Auto) (0.00-1.00) K/uL Eos # (Auto) (0.00-0.50) K/uL Baso # (Auto) (0.00-0.20) K/uL PT (9.5-12.0) SEC INR Sodium (136-145) mmol/L Potassium (3.5-5.1) mmol/L Chloride (98-107) mmol/L Carbon Dioxide (21.0-32.0) mmol/L BUN (7-18) mg/dL Creatinine (0.51-1.17) mg/dL Est Cr Clr Drug Dosing mL/min Estimated GFR (MDRD) mL/min Glucose (74-106) mg/dL Hemoglobin A1c 5.8 H (4.3-5.7) % Uric Acid (2.6-7.2) mg/dL Calcium (8.5-10.1) mg/dL Magnesium (1.8-2.4) mg/dL Iron 43 L (50-175) ug/dL TIBC 317 (250-450) ug/dL % Saturation 13.67258 Ferritin 88 (8-388) ng/mL Creatine Kinase (26-308) U/L Creatine Kinase Index (0.0-2.5) % CK-MB (CK-2) (0.00-3.60) ng/mL Troponin I (0.000-0.056) ng/mL NT-Pro-B Natriuret Pep (0-125) pg/mL Vitamin B12 (193-986) pg/mL Folate (8.6-58.9) ng/mL Abhijit Results Last 24 Hours: Microbiology 11/06/19 17:08 Aerobic Blood Culture - Preliminary Blood - Venous - Lab Draw NO GROWTH AFTER 1 DAY Anaerobic Blood Culture - Preliminary NO GROWTH AFTER 1 DAY 11/06/19 16:45 Aerobic Blood Culture - Preliminary Blood - Venous NO GROWTH AFTER 1 DAY Anaerobic Blood Culture - Preliminary NO GROWTH AFTER 1 DAY Med Orders - Current: Current Medications Acetaminophen (Tylenol Extra Strength) 1,000 mg PO TID [facility] Last Admin: 11/08/19 07:46 Dose: 1,000 mg Albuterol (Proventil Neb Soln) 2.5 mg INH Q2H PRN PRN Reason: SHORTNESS OF BREATH Albuterol/Ipratropium (Duoneb 3.0-0.5 Mg/3 Ml) 3 ml NEB Q4H PRN PRN Reason: Dyspnea Albuterol/Ipratropium (Duoneb 3.0-0.5 Mg/3 Ml) 3 ml NEB Q6HRRT [facility] Last Admin: 11/08/19 07:44 Dose: 3 ml Furosemide (Lasix) 40 mg IVPUSH TID [facility] Last Admin: 11/08/19 07:44 Dose: 40 mg Guaifenesin/Dextromethorphan (Mucinex Dm Er 600-30 Mg) 1 tab PO BID [facility] Last Admin: 11/08/19 07:44 Dose: 1 tab Ceftriaxone Sodium 1 gm/ (Sodium Chloride) 100 mls @ 200 mls/hr IV Q24H [facility] Last Admin: 11/07/19 19:27 Dose: 200 mls/hr Losartan Potassium (Cozaar) 100 mg PO DAILY [facility] Last Admin: 11/08/19 07:45 Dose: 100 mg Methylprednisolone Sodium Succinate (Solu-Medrol) 125 mg IVPUSH Q12H [facility] Last Admin: 11/08/19 07:45 Dose: 125 mg Multivitamins/Minerals/Vitamin C (Tab-A-Thom) 1 tab PO BEDTIME [facility] Last Admin: 11/07/19 19:26 Dose: 1 tab Nitroglycerin (Nitrostat) 0.4 mg SL ASDIRECTED PRN PRN Reason: Chest Pain Potassium Chloride (Klor-Con M20) 20 meq PO TID [facility] Last Admin: 11/08/19 07:46 Dose: 20 meq Sodium Chloride (Saline Flush) 10 ml FLUSH Q12HR [facility] Last Admin: 11/08/19 07:51 Dose: 10 ml Sodium Chloride (Saline Flush) 10 ml FLUSH ASDIRECTED PRN PRN Reason: Keep Vein Open Umeclidinium/Vilanterol (Anoro Ellipta 62.5-25 Mcg) 0 mcg INH DAILY [facility] Last Admin: 11/08/19 07:48 Dose: 1 inh Vit C/Vit E/Zinc/Copper/Lutein (Ocuvite Lutein) 1 each PO DAILY [facility] Last Admin: 11/08/19 07:48 Dose: 1 each Warfarin Sodium (Coumadin) 4 mg PO DAILY@1800 [facility] Last Admin: 11/07/19 18:20 Dose: 4 mg Discontinued Medications Albuterol (Ventolin Hfa) 0 gm INH Q4HR PRN PRN Reason: Shortness of Breath Ceftriaxone Sodium (Rocephin) 1 gm IM ONETIME ONE Stop: 11/06/19 17:38 Last Admin: 11/06/19 18:03 Dose: 1 gm Furosemide (Lasix) 40 mg IVPUSH BID [facility] Last Admin: 11/07/19 08:17 Dose: 40 mg Hydrochlorothiazide (Hydrochlorothiazide) 25 mg PO DAILY [facility] Last Admin: 11/07/19 08:51 Dose: 25 mg Lidocaine HCl (Xylocaine-Mpf 1%) Confirm Administered Dose 5 ml .ROUTE .STK-MED ONE Stop: 11/06/19 17:57 Last Admin: 11/06/19 19:17 Dose: Not Given Lidocaine HCl (Xylocaine-Mpf 1%) 5 ml INJECT ONETIME ONE Stop: 11/06/19 18:19 Last Admin: 11/06/19 18:25 Dose: 2.1 ml Methylprednisolone Sodium Succinate (Solu-Medrol) 125 mg IM ONETIME ONE Stop: 11/06/19 17:39 Last Admin: 11/06/19 18:02 Dose: 125 mg Non-Formulary Medication (Losartan/Hydrochlorothiazide [Losartan-Hctz 100-25 Mg] ) 1 each PO DAILY [facility] Last Admin: 11/07/19 09:20 Dose: Not Given Non-Formulary Medication (Lutein/Minerals/Vit A,C & E [Ocuvite]) 1 tab PO DAILY [facility] Last Admin: 11/07/19 09:20 Dose: Not Given Non-Formulary Medication (Multivitamin-Min/Iron/Fa/Vit K [Multi-Day Plus Minerals Tablet]) 1 tab PO BEDTIME [facility] Last Admin: 11/06/19 20:03 Dose: Not Given Non-Formulary Medication (Potassium Chloride [Potassium Chloride]) 20 meq PO BID [facility] Last Admin: 11/07/19 09:20 Dose: Not Given Non-Formulary Medication (Warfarin) 4 mg PO DAILY [facility] Potassium Chloride (Klor-Con M20) 20 meq PO BID [facility] Last Admin: 11/07/19 08:51 Dose: 20 meq Warfarin Sodium (Coumadin) 8 mg PO ONETIME ONE Stop: 11/06/19 21:52 Last Admin: 11/06/19 22:18 Dose: 8 mg - Exam Quality Assessment: Supplemental Oxygen, DVT Prophylaxis (Coumadin). No: Central Line/PICC, Urine Catheter, Skin Breakdown, Restraints General: Alert, Oriented, Cooperative, No Acute Distress HEENT: Pupils Equal, Pupils Reactive, EOMI, Mucous Membr. Moist/[place], Other ( Patient wearing glasses). No: Scleral Icterus Neck: Supple, Trachea Midline, No JVD, No Thyromegaly, Carotid Bruit (Mild bilateral carotid bruits versus transmitted heart sounds). No: Lymphadenopathy Lungs: Normal Respiratory Effort, Rales (Mild diffuse bilaterally particularly on the basisimproved). No: Rhonchi, Rub, Wheezing Cardiovascular: Regular Rate, Irregular Rhythm, Murmurs (1/6 STELLA of the aortic valve with additional mitral valve click secondary to mechanical prosthesis). No: Gallops, Rubs GI/Abdominal Exam: Normal Bowel Sounds, Soft, Non-Tender, No Organomegaly, No Distention, No Abnormal Bruit, No Mass, Pelvis Stable, Hernia (34 centimeter nonincarcerated periumbilical hernia), Other (Obese) (Male) Exam: Deferred Back Exam: Normal Inspection, Full Range of Motion. No: CVA Tenderness (L), CVA Tenderness (R), Muscle Spasm Extremities: Non-Tender, Normal Capillary Refill, Pedal Edema (Persistent moderate to severe lymphedema of the lower extremities with bilateral lower leg Lisandro compression wrappings), Limited Range of Motion (Shoulders bilaterally with mild localized tenderness with movement). No: Magdalena's Sign Peripheral Pulses: 1+: Dorsalis Pedis (L) (Difficult to palpate secondary to edema), Dorsalis Pedis (R), 2+: Radial (L), Radial (R) Skin: Warm, Dry, Intact. No: Ecchymosis Neurological: Strength Equal Bilateral Psy/Mental Status: Alert, Normal Affect, Normal Mood. No: Agitated, Hallucinations, Withdrawal Symptoms EKG INTERPRETATION EKG Date: 11/08/19 Time: 07:31 Rhythm: A-Fib Rate (Beats/Min): 78 [place]: Normal (Left cardiac) P-Wave: Variable QRS: Normal (0.11 seconds representing repolarization changes) ST-T: Other (Diffuse nonspecific ST changes with borderline T-wave inversions in leads 1, 2, and aVL) QT: Normal WA/PQ Interval: Variable Comparison: NA - No Prior EKG (No recent EKG for comparison) EKG Interpretation Comments: 1. Possible lateral wall cardiac ischemia 2. Atrial fibrillation 3. Repolarization changes Sepsis Event Note - Evaluation Sepsis Screening Result: No Definite Risk - Focused Exam Vital Signs: Vital Signs Temp Pulse Resp BP BP Pulse Ox 11/08/19 08:00 36.4 C 80 18 148/79 H 96 11/08/19 07:45 148/79 H 11/08/19 04:00 36.6 C 64 18 140/72 97 11/08/19 00:00 36.9 C 68 20 143/65 H 95 Date Exam was Performed: 11/08/19 Time Exam was Performed: 10:43 - Problem List & Annotations (1) Pneumonia SNOMED Code(s): 177170977 Code(s): J18.9 - PNEUMONIA, UNSPECIFIED ORGANISM Status: Acute Current Visit: Yes Onset Date: ~11/06/19 Qualifiers: Pneumonia type: due to unspecified organism Laterality: bilateral Lung location: unspecified part of lung Qualified Code(s): J18.9 - Pneumonia, unspecified organism Annotation/Comment:: Sputum obtained with results pending. Continue current IV Rocephin therapy and aggressive triple nebulizer treatments as below. Blood Cultures negative to this point. (2) COPD (chronic obstructive pulmonary disease) SNOMED Code(s): 13475389 Code(s): J44.9 - CHRONIC OBSTRUCTIVE PULMONARY DISEASE, UNSPECIFIED Status : Acute Priority: High Current Visit: Yes Qualifiers: COPD type: COPD with acute lower respiratory infection Qualified Code(s): J44.0 - Chronic obstructive pulmonary disease with (acute) lower respiratory infection Annotation/Comment:: Known O2 dependent COPD with exacerbation and significant hypoxia prior to admission secondary to his current pneumonia and CHF. Continue IV Rocephin and nebulizer therapy with sputum obtained as above. Patient feels better since admission, although is improving slowly. (3) CHF (congestive heart failure) SNOMED Code(s): 81175140 Code(s): I50.9 - HEART FAILURE, UNSPECIFIED Status: Chronic Current Visit : Yes Qualifiers: Heart failure type: combined systolic and diastolic Heart failure chronicity: acute on chronic Qualified Code(s): I50.43 - Acute on chronic combined systolic (congestive) and diastolic (congestive) heart failure Annotation/Comment:: Progressive BNP elevation despite aggressive IV Lasix therapy as below. Improving very slowly and may need to be transferred to swing bed care for further IV Lasix therapy, etc. Troponin I is still normal, however mildly elevated secondary to his CHF with otherwise normal cardiac enzymes exception of BNP. Note some borderline lateral wall ischemic changes by EKG. IV Lasix therapy initiated on admission, however this was increased to a 3 times a day regimen on 11/06 secondary to significant lymphedema and recent weight gain. Lisandro wraps used as compression for his lower extremities with leg elevation strongly encouraged. The patient is not able to sleep in bed and can only stay in a recliner. The patient and his were counseled on 11/06 concerning the importance of daily weights and notifing their regular provider, if he gains more than 5 pounds on any day. No chest pain or anginal complaints. Repeat cardiac enzymes, x-ray, etc. tomorrow with additional EKG. (4) Comfort measures only status SNOMED Code(s): 78530297510315 Code(s): Z51.5 - ENCOUNTER FOR PALLIATIVE CARE Status: Chronic Priority: Medium Current Visit: Yes Annotation/Comment:: Comfort care status confirmed with the patient and his on 11/06. No further echocardiogram, etc. based on their wishes. (5) Atrial fibrillation SNOMED Code(s): 85715678 Code(s): I48.91 - UNSPECIFIED ATRIAL FIBRILLATION Status: Chronic Priority: Medium Current Visit: Yes Qualifiers: Atrial fibrillation type: longstanding persistent Qualified Code(s): I48.11 - Longstanding persistent atrial fibrillation Annotation/Comment:: INR therapeutic on 11/07 secondary to current Rocephin therapy. INR is subtherapeutic at 2.0 on admission considering his mechanical mitral valve. (6) Valvular heart disease SNOMED Code(s): 196105 Code(s): I38 - ENDOCARDITIS, VALVE UNSPECIFIED Status: Chronic Priority: Medium Current Visit: Yes Annotation/Comment:: Note status post mechanical mitral valve replacement with subsequent porcine aortic valve replacement. INR is somewhat subtherapeutic on admission secondary to his mechanical valve replacement as above, however no change for now secondary to current IV Rocephin therapy. INR will be continued to be watched throughout this hospitalization. No chest pain or anginal type symptoms. (7) Osteoarthritis SNOMED Code(s): 268944880 Code(s): M19.90 - UNSPECIFIED OSTEOARTHRITIS, UNSPECIFIED SITE Status: Chronic Priority: Medium Current Visit: Yes Qualifiers: Osteoarthritis location: multiple joints Osteoarthritis type: primary Qualified Code(s): M15.0 - Primary generalized (osteo)arthritis Annotation/Comment:: PT and OT to be initiated secondary to some generalized weakness with patient currently having a walker chair. Stable by history and prior to admission. (8) Anemia SNOMED Code(s): 661106934 Code(s): D64.9 - ANEMIA, UNSPECIFIED Status: Chronic Priority: Medium Current Visit: Yes Onset Date: ~11/08/19 Qualifiers: Anemia type: iron deficiency Iron deficiency anemia type: other iron deficiency Qualified Code(s): D50.8 - Other iron deficiency anemias Annotation/Comment:: Stable prior to admission and during this hospitalization with decreased iron level on 11/07, however normal ferritin vitamin B 12 level, and folic acid levels. No evidence of acute GI bleed, etc. Initiate iron sulfate therapy. Recommend repeat TIBC panel in about 4 weeks. (9) Hypoalbuminemia SNOMED Code(s): 951610043 Code(s): E88.09 - OTH DISORDERS OF PLASMA-PROTEIN METABOLISM, NEC Status: Acute Priority: Medium Current Visit: Yes Onset Date: 11/06/19 Annotation/Comment:: Normalized on 11/07/19. Observe for now. (10) Hypertension SNOMED Code(s): 25590335 Code(s): I10 - ESSENTIAL (PRIMARY) HYPERTENSION Status: Chronic Priority : Medium Current Visit: Yes Qualifiers: Hypertension type: essential hypertension Qualified Code(s): I10 - Essential (primary) hypertension Annotation/Comment:: Somewhat elevated during early phases of hospitalization. Continue to observe closely. Note increased Lasix therapy. - Problem List Review Problem List Initiated/Reviewed/Updated: Yes - My Orders Last 24 Hours: My Active Orders 11/07/19 10:00 Albuterol [Proventil Neb Soln] 2.5 mg INH Q2H PRN 11/07/19 10:09 Comfort Measures [OM.PC] Routine 11/07/19 10:12 RT Aerosol Therapy [RC] 02,08,,20 11/07/19 10:15 Dextromethorphan/guaiFENesin [Mucinex DM ER 600-30 MG] 1 tab PO BID 11/07/19 10:16 Cardiac Monitoring [RC] Q2HR 11/07/19 11:10 LISANDRO Bandage [Elastic Wrap] [OM.PC] Routine 11/07/19 12:00 Furosemide [Lasix] 40 mg IVPUSH TID Potassium Chloride [Klor-Con M20] 20 meq PO TID 11/07/19 12:31 RT Incentive Spirometry [RC] ASDIRECTED OT Evaluation and Treatment [CONS] Routine PT Evaluation and Treatment [CONS] Routine 11/07/19 14:00 Albuterol/Ipratropium [DuoNeb 3.0-0.5 MG/3 ML] 3 ml NEB Q6HRRT 11/07/19 19:42 CULTURE SPUTUM + SMEAR [RM] Routine 11/08/19 05:11 EKG Documentation Completion [RC] ASDIRECTED Chest 2V [CR] Routine 11/08/19 07:43 Sodium Chloride 0.9% [Saline Flush] 10 ml FLUSH ASDIRECTED PRN 11/08/19 08:00 Sodium Chloride 0.9% [Saline Flush] 10 ml FLUSH Q12HR - Assessment Assessment:: As above. - Plan Plan:: As above. Extensive precautions were given to the patient and his , who are in agreement with the treatment plan. The patient will require about 2-3 days of inpatient/acute care secondary to multiple health problems as above with possibility of swing bed care.
[2019-11-08] MEDS: Spironolactone 25 MG Tab PO SCH ×2 (11:55→17:33)
[2019-11-08] MEDS: Sodium Chloride 0.9% 10 ML Syringe FLUSH PRN (11:55)
[2019-11-08] MEDS: Warfarin 2 MG Tab PO SCH (17:32)
[2019-11-08] MEDS: Ferrous Sulfate 325 MG Tab PO SCH (17:33)
[2019-11-08] MEDS: Multivitamin Tab PO SCH (19:20)
[2019-11-08] MEDS: cefTRIAXone 1 GM in Sodium Chloride 0.9% 100 ML IV SCH (19:23)
[2019-11-09] MEDS: Albuterol/Ipratropium 3.0-0.5 MG/3 ML Neb Soln NEB SCH ×4 (01:58→19:30)
[2019-11-09] MEDS: methylPREDNISolone Sodium Succinate 125 MG/2 ML SDV IVPUSH SCH ×2 (07:13→19:30)
[2019-11-09] MEDS: Ferrous Sulfate 325 MG Tab PO SCH ×2 (07:14→17:50)
[2019-11-09] MEDS: Spironolactone 25 MG Tab PO SCH ×2 (07:14→17:51)
[2019-11-09] MEDS: Furosemide 40 MG/4 ML VIAL IVPUSH SCH ×3 (07:14→17:52)
[2019-11-09] MEDS: Losartan 50 MG Tab PO SCH (07:14)
[2019-11-09] MEDS: Acetaminophen 500 MG Tab PO SCH ×3 (07:15→17:51)
[2019-11-09] MEDS: Dextromethorphan/guaiFENesin 600-30 MG Tab.ER PO SCH ×2 (07:15→17:51)
[2019-11-09] MEDS: Potassium Chloride 20 MEQ Tab.ER PO SCH ×3 (07:15→17:52)
[2019-11-09] MEDS: Lutein/Minerals/Vitamin C/Vitamin E Acetate Cap PO SCH (07:15)
[2019-11-09] MEDS: Sodium Chloride 0.9% 10 ML Syringe FLUSH SCH ×2 (07:15→19:34)
[2019-11-09] MEDS: Umeclidinium Brm/Vilanterol Tr 62.5-25 MCG 7 Puff Inhaler INH SCH (07:19)
--- NOTE | 2019-11-09 08:20 | PCM.PN ---
- General Info Date of Service: 11/09/19 Admission Dx/Problem (Free Text): Admission Diagnosis/Problem 1. Bilateral pneumonia 2. O2 dependent COPD exacerbation with hypoxia 3. CHF Functional Status: Reports: Pain Controlled, Tolerating Diet, Ambulating, Urinating, Incentive Spirometry. Denies: New Symptoms Pain Score: 3 (Stable chronic bilateral shoulder pain) - Review of Systems General: Reports: Weakness (Slowly improving). Denies: Fever, Fatigue, Malaise , Chills, Night Sweats, Appetite HEENT: Reports: Glasses. Denies: Dysphasia, Ear Pain, Eye Pain, Headaches, Post Nasal Drip, Sinus Congestion, Sore Throat, Rhinitis Pulmonary: Reports: Shortness of Breath (Improved), Cough, Sputum, Wheezing. Denies: Pleuritic Chest Pain, Hemoptysis Cardiovascular: Reports: Dyspnea on Exertion, Orthopnea, Edema (Refractory dependent). Denies: Chest Pain, Palpitations, PND, Lightheadedness Gastrointestinal: Reports: No Symptoms, Other (Normal bowel movement earlier this morning). Denies: Abdominal Pain, Constipation, Decreased Appetite, Diarrhea, Difficulty Swallowing, Flatus, Hematochezia, Melena, Nausea, Vomiting Genitourinary: Reports: No Symptoms. Denies: Dysuria, Frequency, Burning, Pain , Urgency, Hematuria, Retention, Flank Pain Musculoskeletal: Reports: Shoulder Pain (Stable chronic bilateral). Denies: Neck Pain, Arm Pain, Back Pain, Leg Pain Skin: Reports: No Symptoms. Denies: Diaphoresis, Bruising Neurological: Reports: Pre-Existing Deficit, Difficulty Walking (Uses walker chairstable), Weakness (As above). Denies: Confusion, Numbness, Paresthesia, Tingling Psychiatric: Reports: No Symptoms. Denies: Confusion, Depression, Anxiety, Agitation, Hallucinations, Homicidal Ideation - Patient Data Vitals - Most Recent: Last Vital Signs Temp 36.6 C 11/09/19 07:42 Pulse 93 11/09/19 07:42 Resp 19 11/09/19 07:42 BP 145/88 H 11/09/19 07:42 Pulse Ox 97 11/09/19 07:42 Vital Signs - 24 hr 11/08/19 11/08/19 11/08/19 12:00 17:30 17:48 Temperature [ 36.7 C 36.8 C Temporal] Pulse, 81 79 Peripheral [ Pulse Oximetry] Respiratory 24 H Rate Blood Pressure Blood Pressure 165/75 H 152/70 H [Right Upper Arm] O2 Sat by Pulse 93 L 94 L Oximetry 11/08/19 11/09/19 11/09/19 19:32 02:00 07:14 Temperature [ 37.1 C 37.0 C Temporal] Pulse, 87 84 Peripheral [ Pulse Oximetry] Respiratory 20 18 Rate Blood Pressure 140/88 Blood Pressure 136/76 153/81 H [Right Upper Arm] O2 Sat by Pulse 96 95 Oximetry 11/09/19 07:42 Temperature [ 36.6 C Temporal] Pulse, 93 Peripheral [ Pulse Oximetry] Respiratory 19 Rate Blood Pressure Blood Pressure 145/88 H [Right Upper Arm] O2 Sat by Pulse 97 Oximetry Weight - Most Recent: 164.835 kg I&O - Last 24 Hours: Intake & Output 11/08/19 11/09/19 11/09/19 22:59 06:59 14:59 Intake Total 300 640 600 Output Total 350 650 325 Balance -50 -10 275 Imaging Impressions - Last 24 Hours: personnel monitor shows atrial fibrillation with heart rate in the 70s to 90s with occasional mostly multiform PVCs Lab Results Last 24 Hours: Laboratory Results - last 24 hr 11/09/19 11/09/19 Range/Units 07:09 07:09 WBC 11.8 H (4.0-10.2) K/uL RBC 3.76 L (4.33-5.41) M/uL Hgb 11.0 L (13.1-16.8) g/dL Hct 36.1 L (39.0-49.0) % MCV 96.0 (84.0-98.0) fL MCH 29.3 (28.2-33.3) pg MCHC 30.5 L (31.7-36.0) g/dL RDW 16.0 H (11.2-14.1) % Plt Count 176 (150-350) K/uL Neut % (Auto) 90.4 H (45.0-80.0) % Lymph % (Auto) 4.0 L (10.0-50.0) % [place] % (Auto) 5.6 (2.0-14.0) % Eos % (Auto) 0.0 (0.0-5.0) % Baso % (Auto) 0.0 (0.0-2.0) % Neut # (Auto) 10.64 H (1.40-7.00) K/uL Lymph # (Auto) 0.47 L (0.50-3.50) K/uL [place] # (Auto) 0.66 (0.00-1.00) K/uL Eos # (Auto) 0.00 (0.00-0.50) K/uL Baso # (Auto) 0.00 (0.00-0.20) K/uL Creatine Kinase 145 (26-308) U/L Creatine Kinase Index 1.4 (0.0-2.5) % CK-MB (CK-2) 2.10 (0.00-3.60) ng/mL Troponin I 0.035 (0.000-0.056) ng/mL NT-Pro-B Natriuret Pep 2956 H (0-125) pg/mL Abhijit Results Last 24 Hours: Microbiology 11/06/19 17:08 Aerobic Blood Culture - Preliminary Blood - Venous - Lab Draw NO GROWTH AFTER 2 DAYS Anaerobic Blood Culture - Preliminary NO GROWTH AFTER 2 DAYS 11/06/19 16:45 Aerobic Blood Culture - Preliminary Blood - Venous NO GROWTH AFTER 2 DAYS Anaerobic Blood Culture - Preliminary NO GROWTH AFTER 2 DAYS Med Orders - Current: Current Medications Acetaminophen (Tylenol Extra Strength) 1,000 mg PO TID [facility] Last Admin: 11/09/19 07:15 Dose: 1,000 mg Albuterol (Proventil Neb Soln) 2.5 mg INH Q2H PRN PRN Reason: SHORTNESS OF BREATH Albuterol/Ipratropium (Duoneb 3.0-0.5 Mg/3 Ml) 3 ml NEB Q4H PRN PRN Reason: Dyspnea Albuterol/Ipratropium (Duoneb 3.0-0.5 Mg/3 Ml) 3 ml NEB Q6HRRT [facility] Last Admin: 11/09/19 07:14 Dose: 3 ml Ferrous Sulfate (Ferrous Sulfate) 325 mg PO BIDMEALS [facility] Last Admin: 11/09/19 07:14 Dose: 325 mg Furosemide (Lasix) 40 mg IVPUSH TID [facility] Last Admin: 11/09/19 07:14 Dose: 40 mg Guaifenesin/Dextromethorphan (Mucinex Dm Er 600-30 Mg) 1 tab PO BID [facility] Last Admin: 11/09/19 07:15 Dose: 1 tab Ceftriaxone Sodium 1 gm/ (Sodium Chloride) 100 mls @ 200 mls/hr IV Q24H [facility] Last Admin: 11/08/19 19:23 Dose: 200 mls/hr Losartan Potassium (Cozaar) 100 mg PO DAILY [facility] Last Admin: 11/09/19 07:14 Dose: 100 mg Methylprednisolone Sodium Succinate (Solu-Medrol) 125 mg IVPUSH Q12H [facility] Last Admin: 11/09/19 07:13 Dose: 125 mg Multivitamins/Minerals/Vitamin C (Tab-A-Thom) 1 tab PO BEDTIME [facility] Last Admin: 11/08/19 19:20 Dose: 1 tab Nitroglycerin (Nitrostat) 0.4 mg SL ASDIRECTED PRN PRN Reason: Chest Pain Potassium Chloride (Klor-Con M20) 20 meq PO TID [facility] Last Admin: 11/09/19 07:15 Dose: 20 meq Sodium Chloride (Saline Flush) 10 ml FLUSH Q12HR [facility] Last Admin: 11/09/19 07:15 Dose: 10 ml Sodium Chloride (Saline Flush) 10 ml FLUSH ASDIRECTED PRN PRN Reason: Keep Vein Open Last Admin: 11/08/19 11:55 Dose: 10 ml Spironolactone (Aldactone) 12.5 mg PO BID [facility] Last Admin: 11/09/19 07:14 Dose: 12.5 mg Umeclidinium/Vilanterol (Anoro Ellipta 62.5-25 Mcg) 0 mcg INH DAILY [facility] Last Admin: 11/09/19 07:19 Dose: 1 inh Vit C/Vit E/Zinc/Copper/Lutein (Ocuvite Lutein) 1 each PO DAILY [facility] Last Admin: 11/09/19 07:15 Dose: 1 each Warfarin Sodium (Coumadin) 4 mg PO DAILY@1800 [facility] Last Admin: 11/08/19 17:32 Dose: 4 mg Discontinued Medications Albuterol (Ventolin Hfa) 0 gm INH Q4HR PRN PRN Reason: Shortness of Breath Ceftriaxone Sodium (Rocephin) 1 gm IM ONETIME ONE Stop: 11/06/19 17:38 Last Admin: 11/06/19 18:03 Dose: 1 gm Furosemide (Lasix) 40 mg IVPUSH BID [facility] Last Admin: 11/07/19 08:17 Dose: 40 mg Hydrochlorothiazide (Hydrochlorothiazide) 25 mg PO DAILY [facility] Last Admin: 11/07/19 08:51 Dose: 25 mg Lidocaine HCl (Xylocaine-Mpf 1%) Confirm Administered Dose 5 ml .ROUTE .STK-MED ONE Stop: 11/06/19 17:57 Last Admin: 11/06/19 19:17 Dose: Not Given Lidocaine HCl (Xylocaine-Mpf 1%) 5 ml INJECT ONETIME ONE Stop: 11/06/19 18:19 Last Admin: 11/06/19 18:25 Dose: 2.1 ml Methylprednisolone Sodium Succinate (Solu-Medrol) 125 mg IM ONETIME ONE Stop: 11/06/19 17:39 Last Admin: 11/06/19 18:02 Dose: 125 mg Non-Formulary Medication (Losartan/Hydrochlorothiazide [Losartan-Hctz 100-25 Mg] ) 1 each PO DAILY [facility] Last Admin: 11/07/19 09:20 Dose: Not Given Non-Formulary Medication (Lutein/Minerals/Vit A,C & E [Ocuvite]) 1 tab PO DAILY [facility] Last Admin: 11/07/19 09:20 Dose: Not Given Non-Formulary Medication (Multivitamin-Min/Iron/Fa/Vit K [Multi-Day Plus Minerals Tablet]) 1 tab PO BEDTIME [facility] Last Admin: 11/06/19 20:03 Dose: Not Given Non-Formulary Medication (Potassium Chloride [Potassium Chloride]) 20 meq PO BID [facility] Last Admin: 11/07/19 09:20 Dose: Not Given Non-Formulary Medication (Warfarin) 4 mg PO DAILY [facility] Potassium Chloride (Klor-Con M20) 20 meq PO BID [facility] Last Admin: 11/07/19 08:51 Dose: 20 meq Warfarin Sodium (Coumadin) 8 mg PO ONETIME ONE Stop: 11/06/19 21:52 Last Admin: 11/06/19 22:18 Dose: 8 mg - Exam Quality Assessment: Supplemental Oxygen, DVT Prophylaxis (Coumadin). No: Central Line/PICC, Urine Catheter, Skin Breakdown, Restraints General: Alert, Oriented, Cooperative, No Acute Distress HEENT: Pupils Equal, Pupils Reactive, EOMI, Mucous Membr. Moist/[place], Other ( Patient wearing glasses). No: Scleral Icterus Neck: Supple, Trachea Midline, No JVD, No Thyromegaly, Carotid Bruit (Stable mild bilateral carotid bruits versus transmitted heart sounds). No: Lymphadenopathy Lungs: Normal Respiratory Effort, Rales (Improved mild bilateral basilar rales) , Other (Nebulizer treatment just completed). No: Rhonchi, Rub, Wheezing Cardiovascular: Regular Rhythm, Irregular Rhythm, Murmurs (Stable 1/6 STELLA of the aortic valve and mechanical mitral valve click). No: Gallops, Rubs GI/Abdominal Exam: Normal Bowel Sounds, Soft, Non-Tender, No Organomegaly, No Distention, No Abnormal Bruit, No Mass, Pelvis Stable, Hernia (Stable 34 centimeter nonincarcerated periumbilical hernia), Other (Obese). No: Guarding (Male) Exam: Deferred Back Exam: Normal Inspection, Full Range of Motion. No: CVA Tenderness (L), CVA Tenderness (R), Muscle Spasm Extremities: Non-Tender (Although mild discomfort with range of motion of his shoulders bilaterally), Pedal Edema (Fracturing moderate lymphedema of the lower extremities bilaterally, left greater than right, with Lisandro wrap compression dressings), Limited Range of Motion (Chronic in his shoulders bilaterally). No: Magdalena's Sign Peripheral Pulses: 1+: Dorsalis Pedis (L), Dorsalis Pedis (R), 2+: Radial (L), Radial (R) Skin: Warm, Dry, Intact Neurological: No New Focal Deficit, Other (Stable generalized weakness) Psy/Mental Status: Alert, Normal Affect, Normal Mood. No: Agitated, Hallucinations, Withdrawal Symptoms EKG INTERPRETATION EKG Date: 11/09/19 Time: 06:01 Rhythm: A-Fib (With occasional PVCs and couplet) Rate (Beats/Min): 88 [place]: Normal (Neutral) P-Wave: Variable QRS: Wide (0.10 seconds representing repolarization changes) ST-T: Other (Nonspecific ST changes with T-wave inversion in lead aVL and V1) QT: Normal Comparison: No Change (11/08/19) EKG Interpretation Comments: 1. Borderline lateral wall cardiac ischemia 2. PVCs and couplets 3. Atrial fibrillation 4. Reolarization changes Sepsis Event Note - Evaluation Sepsis Screening Result: No Definite Risk - Focused Exam Vital Signs: Vital Signs Temp Pulse Resp BP BP Pulse Ox 11/09/19 07:42 36.6 C 93 19 145/88 H 97 11/09/19 07:14 140/88 11/09/19 02:00 37.0 C 84 18 153/81 H 95 Date Exam was Performed: 11/09/19 Time Exam was Performed: 16:31 - Problem List & Annotations (1) Pneumonia SNOMED Code(s): 510592068 Code(s): J18.9 - PNEUMONIA, UNSPECIFIED ORGANISM Status: Acute Current Visit: Yes Onset Date: ~11/06/19 Qualifiers: Pneumonia type: due to unspecified organism Laterality: bilateral Lung location: unspecified part of lung Qualified Code(s): J18.9 - Pneumonia, unspecified organism Annotation/Comment:: Sputum obtained yesterday however this sample was rejected. Attempt to obtain a new specimen RUDY. Continue current IV Rocephin therapy and aggressive triple nebulizer treatments as below. Blood Cultures negative to this point. (2) COPD (chronic obstructive pulmonary disease) SNOMED Code(s): 86260256 Code(s): J44.9 - CHRONIC OBSTRUCTIVE PULMONARY DISEASE, UNSPECIFIED Status : Acute Priority: High Current Visit: Yes Qualifiers: COPD type: COPD with acute lower respiratory infection Qualified Code(s): J44.0 - Chronic obstructive pulmonary disease with (acute) lower respiratory infection Annotation/Comment:: Known O2 dependent COPD with exacerbation and significant hypoxia prior to admission secondary to his current pneumonia and CHF. Continue IV Rocephin and nebulizer therapy with sputum obtained as above. Patient feels better since admission, although is improving slowly. (3) CHF (congestive heart failure) SNOMED Code(s): 47790316 Code(s): I50.9 - HEART FAILURE, UNSPECIFIED Status: Chronic Current Visit : Yes Qualifiers: Heart failure type: combined systolic and diastolic Heart failure chronicity: acute on chronic Qualified Code(s): I50.43 - Acute on chronic combined systolic (congestive) and diastolic (congestive) heart failure Annotation/Comment:: Progressive BNP elevation despite aggressive IV Lasix therapy as below yesterday, although somewhat improved today. CHF and dependent edema are improving very slowly and may need to be transferred to swing bed care for further IV Lasix therapy, etc. tomorrow. dimensional integration engineer physician assumes care in the a.m. Troponin I is still normal, however mildly elevated secondary to his CHF with otherwise normal cardiac enzymes exception of BNP. Note some borderline lateral wall ischemic changes by EKG. IV Lasix therapy initiated on admission, however this was increased to a 3 times a day regimen on 11/06 secondary to significant lymphedema and recent weight gain. Lisandro wraps used as compression for his lower extremities with leg elevation strongly encouraged. The patient is not able to sleep in bed and can only stay in a recliner. The patient and his were counseled on 11/06 concerning the importance of daily weights and notifing their regular provider, if he gains more than 5 pounds on any day. No chest pain or anginal complaints. Repeat cardiac enzymes, etc. tomorrow (4) Comfort measures only status SNOMED Code(s): 03689051354800 Code(s): Z51.5 - ENCOUNTER FOR PALLIATIVE CARE Status: Chronic Priority: Medium Current Visit: Yes Annotation/Comment:: Comfort care status confirmed with the patient and his on 11/06. No further echocardiogram, etc. based on their wishes. (5) Atrial fibrillation SNOMED Code(s): 13349030 Code(s): I48.91 - UNSPECIFIED ATRIAL FIBRILLATION Status: Chronic Priority: Medium Current Visit: Yes Qualifiers: Atrial fibrillation type: longstanding persistent Qualified Code(s): I48.11 - Longstanding persistent atrial fibrillation Annotation/Comment:: INR therapeutic on 11/07 secondary to current Rocephin therapy. INR is subtherapeutic at 2.0 on admission considering his mechanical mitral valve. (6) Valvular heart disease SNOMED Code(s): 999479 Code(s): I38 - ENDOCARDITIS, VALVE UNSPECIFIED Status: Chronic Priority: Medium Current Visit: Yes Annotation/Comment:: Note status post mechanical mitral valve replacement with subsequent porcine aortic valve replacement. INR is somewhat subtherapeutic on admission secondary to his mechanical valve replacement as above, however no change for now secondary to current IV Rocephin therapy. INR will be continued to be watched throughout this hospitalization. No chest pain or anginal type symptoms. (7) Osteoarthritis SNOMED Code(s): 542005483 Code(s): M19.90 - UNSPECIFIED OSTEOARTHRITIS, UNSPECIFIED SITE Status: Chronic Priority: Medium Current Visit: Yes Qualifiers: Osteoarthritis location: multiple joints Osteoarthritis type: primary Qualified Code(s): M15.0 - Primary generalized (osteo)arthritis Annotation/Comment:: PT and OT to be initiated secondary to some generalized weakness with patient currently having a walker chair. Stable by history and prior to admission. (8) Anemia SNOMED Code(s): 709117653 Code(s): D64.9 - ANEMIA, UNSPECIFIED Status: Chronic Priority: Medium Current Visit: Yes Onset Date: ~11/08/19 Qualifiers: Anemia type: iron deficiency Iron deficiency anemia type: other iron deficiency Qualified Code(s): D50.8 - Other iron deficiency anemias Annotation/Comment:: Stable prior to admission and during this hospitalization with decreased iron level on 11/07, however normal ferritin, vitamin B 12 level, and folic acid levels. No evidence of acute GI bleed, etc. Initiate iron sulfate therapy. Recommend repeat TIBC panel in about 4 weeks. (9) Hypoalbuminemia SNOMED Code(s): 578384205 Code(s): E88.09 - OTH DISORDERS OF PLASMA-PROTEIN METABOLISM, NEC Status: Acute Priority: Medium Current Visit: Yes Onset Date: 11/06/19 Annotation/Comment:: Normalized on 11/07/19. Observe for now. (10) Hypertension SNOMED Code(s): 40328134 Code(s): I10 - ESSENTIAL (PRIMARY) HYPERTENSION Status: Chronic Priority : Medium Current Visit: Yes Qualifiers: Hypertension type: essential hypertension Qualified Code(s): I10 - Essential (primary) hypertension Annotation/Comment:: Somewhat elevated during early phases of hospitalization. Continue to observe closely. Note increased Lasix therapy. - Problem List Review Problem List Initiated/Reviewed/Updated: Yes - My Orders Last 24 Hours: My Active Orders 11/08/19 07:43 Sodium Chloride 0.9% [Saline Flush] 10 ml FLUSH ASDIRECTED PRN 11/08/19 08:00 Sodium Chloride 0.9% [Saline Flush] 10 ml FLUSH Q12HR 11/08/19 11:00 Spironolactone [Aldactone] 12.5 mg PO BID 11/08/19 17:30 Ferrous Sulfate 325 mg PO BIDMEALS 11/09/19 05:11 EKG Documentation Completion [RC] ASDIRECTED - Assessment Assessment:: As above. - Plan Plan:: As above. Extensive precautions were given to the patient and his , who are in agreement with the treatment plan. The patient will require about 1-2 days of inpatient/acute care secondary to multiple health problems as above with possibility of swing bed care tomorrow further IV Lasix and possible IV antibiotic therapy..
[2019-11-09] MEDS: Sodium Chloride 0.9% 10 ML Syringe FLUSH PRN ×2 (12:02→17:53)
[2019-11-09] MEDS: Warfarin 2 MG Tab PO SCH (17:51)
[2019-11-09] MEDS: Multivitamin Tab PO SCH (19:30)
[2019-11-09] MEDS: cefTRIAXone 1 GM in Sodium Chloride 0.9% 100 ML IV SCH (19:32)
[2019-11-10] MEDS: Albuterol/Ipratropium 3.0-0.5 MG/3 ML Neb Soln NEB SCH ×3 (01:44→14:09)
[2019-11-10] MEDS: Ferrous Sulfate 325 MG Tab PO SCH (07:22)
[2019-11-10] MEDS: methylPREDNISolone Sodium Succinate 125 MG/2 ML SDV IVPUSH SCH (07:22)
[2019-11-10] MEDS: Spironolactone 25 MG Tab PO SCH (07:22)
[2019-11-10] MEDS: Lutein/Minerals/Vitamin C/Vitamin E Acetate Cap PO SCH (07:23)
[2019-11-10] MEDS: Potassium Chloride 20 MEQ Tab.ER PO SCH ×2 (07:23→12:10)
[2019-11-10] MEDS: Dextromethorphan/guaiFENesin 600-30 MG Tab.ER PO SCH (07:23)
[2019-11-10] MEDS: Acetaminophen 500 MG Tab PO SCH ×2 (07:23→12:10)
[2019-11-10] MEDS: Losartan 50 MG Tab PO SCH (07:23)
[2019-11-10] MEDS: Sodium Chloride 0.9% 10 ML Syringe FLUSH SCH (07:24)
[2019-11-10] MEDS: Furosemide 40 MG/4 ML VIAL IVPUSH SCH ×2 (07:24→12:10)
[2019-11-10] MEDS: Umeclidinium Brm/Vilanterol Tr 62.5-25 MCG 7 Puff Inhaler INH SCH (07:26)
[2019-11-10 08:08] LABS: CHLORIDE,CL 104 mmol/L (98-107); SODIUM,NA 144 mmol/L (136-145)
[2019-11-10] MEDS: Sodium Chloride 0.9% 10 ML Syringe FLUSH PRN (12:11)
--- NOTE | 2019-11-10 15:04 | PCM.DCSUM1 ---
Discharge Summary - Hospital Course Brief History: Admitted for treatment of hypoxemia/CHF/pneumonia/COPD Diagnosis: Stroke: No - Discharge Data Discharge Date: 11/10/19 Discharge Disposition: DC/Tfer to Acute Hospital 02 Condition: Fair - Referral to Home Health Primary Care Physician: PCP None - Discharge Diagnosis/Problem(s) (1) Hypoxemia SNOMED Code(s): 882696738 ICD Code: R09.02 - HYPOXEMIA Status: Acute Priority: High Current Visit : Yes Problem Details: O2 dependent. On home O2 via NC at 3-5L. Noted to have significant O2 desaturation with any activity/ambulation down to 80%. This is new per patient. Improved at rest. (2) Pneumonia SNOMED Code(s): 350068710 ICD Code: J18.9 - PNEUMONIA, UNSPECIFIED ORGANISM Status: Acute Current Visit: Yes Onset Date: ~11/06/19 Problem Details: Right lung shows increase in pleural effusion today. Consider right sided pneumonia process. Radiology did not note obvious acute change in left lung. Sputum showed gram + cocci in chains. Culture pending. IV Rocephin therapy. Blood Cultures negative. Qualifiers: Pneumonia type: due to unspecified organism Laterality: bilateral Lung location: unspecified part of lung Qualified Code(s): J18.9 - Pneumonia, unspecified organism (3) CHF (congestive heart failure) SNOMED Code(s): 47790653 ICD Code: I50.9 - HEART FAILURE, UNSPECIFIED Status: Chronic Current Visit: Yes Problem Details: Elevated ProBNP. Minimal diuresis with current Lasix therapy. Troponin I unremarkable. Qualifiers: Heart failure type: combined systolic and diastolic Heart failure chronicity: acute on chronic Qualified Code(s): I50.43 - Acute on chronic combined systolic (congestive) and diastolic (congestive) heart failure (4) COPD (chronic obstructive pulmonary disease) SNOMED Code(s): 56653535 ICD Code: J44.9 - CHRONIC OBSTRUCTIVE PULMONARY DISEASE, UNSPECIFIED Status : Acute Priority: High Current Visit: Yes Problem Details: Known O2 dependent COPD with exacerbation and significant hypoxia prior to admission secondary to his current pneumonia and CHF. No significant improvement overall since admission. Qualifiers: COPD type: COPD with acute lower respiratory infection Qualified Code(s): J44.0 - Chronic obstructive pulmonary disease with (acute) lower respiratory infection (5) Morbid obesity SNOMED Code(s): 344041988 ICD Code: E66.01 - MORBID (SEVERE) OBESITY DUE TO EXCESS CALORIES Status: Chronic Priority: Medium Current Visit: Yes (6) Hypoalbuminemia SNOMED Code(s): 295072759 ICD Code: E88.09 - OTH DISORDERS OF PLASMA-PROTEIN METABOLISM, NEC Status: Acute Priority: Medium Current Visit: Yes Onset Date: 11/06/19 Problem Details: Normalized on 11/07/19. Observe for now. (7) Anemia SNOMED Code(s): 858465754 ICD Code: D64.9 - ANEMIA, UNSPECIFIED Status: Chronic Priority: Medium Current Visit: Yes Onset Date: ~11/08/19 Problem Details: Stable prior to admission and during this hospitalization with decreased iron level on 11/07, however normal ferritin, vitamin B 12 level, and folic acid levels. No evidence of acute GI bleed, etc. Initiate iron sulfate therapy. Recommend repeat TIBC panel in about 4 weeks. Qualifiers: Anemia type: iron deficiency Iron deficiency anemia type: other iron deficiency Qualified Code(s): D50.8 - Other iron deficiency anemias (8) Atrial fibrillation SNOMED Code(s): 43736108 ICD Code: I48.91 - UNSPECIFIED ATRIAL FIBRILLATION Status: Chronic Priority: Medium Current Visit: Yes Problem Details: INR therapeutic on secondary to current Rocephin therapy. INR is subtherapeutic at 2.0 on admission considering his mechanical mitral valve. Qualifiers: Atrial fibrillation type: longstanding persistent Qualified Code(s): I48.11 - Longstanding persistent atrial fibrillation (9) Comfort measures only status SNOMED Code(s): 60914524795730 ICD Code: Z51.5 - ENCOUNTER FOR PALLIATIVE CARE Status: Chronic Priority : Medium Current Visit: Yes Problem Details: Comfort care status confirmed with the patient and his on 11/06 (10) Hypertension SNOMED Code(s): 49579756 ICD Code: I10 - ESSENTIAL (PRIMARY) HYPERTENSION Status: Chronic Priority : Medium Current Visit: Yes Problem Details: Somewhat elevated during early phases of hospitalization. Continue to observe closely. Note increased Lasix therapy. Qualifiers: Hypertension type: essential hypertension Qualified Code(s): I10 - Essential (primary) hypertension (11) Osteoarthritis SNOMED Code(s): 690771579 ICD Code: M19.90 - UNSPECIFIED OSTEOARTHRITIS, UNSPECIFIED SITE Status: Chronic Priority: Medium Current Visit: Yes Problem Details: Chronic, unchanged acutely. Qualifiers: Osteoarthritis location: multiple joints Osteoarthritis type: primary Qualified Code(s): M15.0 - Primary generalized (osteo)arthritis (12) Valvular heart disease SNOMED Code(s): 536361 ICD Code: I38 - ENDOCARDITIS, VALVE UNSPECIFIED Status: Chronic Priority : Medium Current Visit: Yes Problem Details: Note status post mechanical mitral valve replacement with subsequent porcine aortic valve replacement. No chest pain or anginal type symptoms. - Patient Summary/Data Consults: Consultations 11/07/19 12:31 OT Evaluation and Treatment [CONS] Routine PT Evaluation and Treatment [CONS] Routine - Discharge Plan *PRESCRIPTION DRUG MONITORING PROGRAM REVIEWED*: Not Applicable *COPY OF PRESCRIPTION DRUG MONITORING REPORT IN PATIENT KELLIE: Not Applicable Home Medications: Home Meds Albuterol [Ventolin HFA] 2 puff .XX Q4HR PRN 09/29/18 [History] Furosemide [Lasix] 40 mg PO DAILY 09/29/18 [History] Losartan/Hydrochlorothiazide [Losartan-HCTZ 100-25 MG] 1 each PO DAILY 09/29/18 [History] Nitroglycerin [Nitrostat] 0.4 mg SL ASDIRECTED PRN 09/29/18 [History] Potassium Chloride 20 meq PO BID 09/29/18 [History] Acetaminophen [Acetaminophen Extra Strength] 2 tab PO TID 11/06/19 [History] Amoxicillin/Clavulanate K [Augmentin 500-125 MG] 1 tab PO BID 11/06/19 [History] Lutein/Minerals/Vit A,C & E [Ocuvite] 1 tab PO DAILY 11/06/19 [History] Multivitamin-Min/Iron/FA/Vit K [Multi-Day Plus Minerals Tablet] 1 tab PO BEDTIME 11/06/19 [History] Umeclidinium Brm/Vilanterol Tr [Anoro Ellipta 62.5-25 MCG] 1 puff INH DAILY 05/19 [History] Warfarin [Coumadin] 4 mg PO DAILY 11/06/19 [History] Oxygen Therapy Mode: Nasal Cannula Oxygen Flow Rate (L/min): 4 Patient Handouts: Chronic Obstructive Pulmonary Disease Exacerbation, Easy-to- Read, Chronic Obstructive Pulmonary Disease, [id number] Forms: ED Department Discharge Referrals: PCP,None [Primary Care Provider] - - Discharge Summary/Plan Comment DC Time >30 min.: No - General Info Date of Service: 11/10/19 Admission Dx/Problem (Free Text: Admitted for treatment of hypoxemia, CHF, COPD, pneumonia Subjective Update: Patient feels about the same. No new complaints. Winded easily with activity. thinks he is coughing more frequently. Functional Status: Reports: Pain Controlled, Tolerating Diet, Ambulating (with assistance), Urinating, Incentive Spirometry. Denies: New Symptoms - Review of Systems General: Reports: Fatigue. Denies: Fever, Weakness, Malaise, Chills, Night Sweats HEENT: Reports: No Symptoms (no acute changes) Pulmonary: Reports: Shortness of Breath, Cough, Sputum. Denies: Pleuritic Chest Pain, Hemoptysis, Wheezing Cardiovascular: Reports: Dyspnea on Exertion, Edema. Denies: Chest Pain, Palpitations, Lightheadedness Gastrointestinal: Denies: Abdominal Pain, Constipation, Decreased Appetite, Diarrhea, Difficulty Swallowing, Nausea, Vomiting Genitourinary: Reports: No Symptoms Musculoskeletal: Reports: Other (no acute changes from baseline osteoarthritis) Skin: Denies: Jaundice, Mottled, Pallor, Diaphoresis, Rash Neurological: Reports: Difficulty Walking. Denies: Confusion, Dizziness, Headache, Syncope, Tingling, Trouble Speaking, Change in Speech Psychiatric: Reports: No Symptoms - Patient Data Vitals - Most Recent: Last Vital Signs Temp 37.0 C 11/10/19 13:53 Pulse 87 11/10/19 13:53 Resp 19 11/10/19 13:53 BP 139/81 11/10/19 13:53 Pulse Ox 95 11/10/19 13:53 Weight - Most Recent: 164.473 kg I&O - Last 24 hours: Intake & Output 11/10/19 11/10/19 11/10/19 06:59 14:59 22:59 Intake Total 840 Output Total 220 900 Balance -220 -60 Lab Results - Last 24 hrs: Laboratory Results - last 24 hr 11/10/19 11/10/19 11/10/19 Range/Units 07:28 07:28 07:28 WBC 11.9 H (4.0-10.2) K/uL RBC 3.85 L (4.33-5.41) M/uL Hgb 11.4 L (13.1-16.8) g/dL Hct 37.1 L (39.0-49.0) % MCV 96.4 (84.0-98.0) fL MCH 29.6 (28.2-33.3) pg MCHC 30.7 L (31.7-36.0) g/dL RDW 16.2 H (11.2-14.1) % Plt Count 181 (150-350) K/uL Neut % (Auto) 88.1 H (45.0-80.0) % Lymph % (Auto) 4.4 L (10.0-50.0) % Jenkins % (Auto) 7.5 (2.0-14.0) % Eos % (Auto) 0.0 (0.0-5.0) % Baso % (Auto) 0.0 (0.0-2.0) % Neut # (Auto) 10.50 H (1.40-7.00) K/uL Lymph # (Auto) 0.52 (0.50-3.50) K/uL Jenkins # (Auto) 0.89 (0.00-1.00) K/uL Eos # (Auto) 0.00 (0.00-0.50) K/uL Baso # (Auto) 0.00 (0.00-0.20) K/uL PT 28.4 H (9.5-12.0) SEC INR 2.9 Sodium 144 (136-145) mmol/L Potassium 3.8 (3.5-5.1) mmol/L Chloride 104 (98-107) mmol/L Carbon Dioxide 35.0 H (21.0-32.0) mmol/L BUN 41 H (7-18) mg/dL Creatinine 0.88 (0.51-1.17) mg/dL Est Cr Clr Drug Dosing 80.71 mL/min Estimated GFR (MDRD) > 60 mL/min Glucose 148 H (74-106) mg/dL Uric Acid 5.6 (2.6-7.2) mg/dL Calcium 9.2 (8.5-10.1) mg/dL Magnesium 2.3 (1.8-2.4) mg/dL Total Bilirubin 0.5 (0.2-1.0) mg/dL AST 24 (15-37) U/L ALT 29 (12-78) U/L Alkaline Phosphatase 64 (46-116) IU/L Creatine Kinase 71 (26-308) U/L Creatine Kinase Index 2.7 H (0.0-2.5) % CK-MB (CK-2) 1.90 (0.00-3.60) ng/mL Troponin I 0.035 (0.000-0.056) ng/mL NT-Pro-B Natriuret Pep 2806 H (0-125) pg/mL Total Protein 7.8 (6.4-8.2) g/dL Albumin 3.6 (3.4-5.0) g/dL ASHISH Results - Last 24 hrs: Microbiology 11/06/19 17:08 Aerobic Blood Culture - Preliminary Blood - Venous - Lab Draw NO GROWTH AFTER 3 DAYS Anaerobic Blood Culture - Preliminary NO GROWTH AFTER 3 DAYS 11/06/19 16:45 Aerobic Blood Culture - Preliminary Blood - Venous NO GROWTH AFTER 3 DAYS Anaerobic Blood Culture - Preliminary NO GROWTH AFTER 3 DAYS 11/09/19 11:20 Gram Stain - Final Sputum - Expectorated Med Orders - Current: Current Medications Acetaminophen (Tylenol Extra Strength) 1,000 mg PO TID [facility] Last Admin: 11/10/19 12:10 Dose: 1,000 mg Albuterol (Proventil Neb Soln) 2.5 mg INH Q2H PRN PRN Reason: SHORTNESS OF BREATH Albuterol/Ipratropium (Duoneb 3.0-0.5 Mg/3 Ml) 3 ml NEB Q4H PRN PRN Reason: Dyspnea Albuterol/Ipratropium (Duoneb 3.0-0.5 Mg/3 Ml) 3 ml NEB Q6HRRT [facility] Last Admin: 11/10/19 14:09 Dose: 3 ml Ferrous Sulfate (Ferrous Sulfate) 325 mg PO BIDMEALS [facility] Last Admin: 11/10/19 07:22 Dose: 325 mg Furosemide (Lasix) 40 mg IVPUSH TID [facility] Last Admin: 11/10/19 12:10 Dose: 40 mg Guaifenesin/Dextromethorphan (Mucinex Dm Er 600-30 Mg) 1 tab PO BID [facility] Last Admin: 11/10/19 07:23 Dose: 1 tab Ceftriaxone Sodium 1 gm/ (Sodium Chloride) 100 mls @ 200 mls/hr IV Q24H [facility] Last Admin: 11/09/19 19:32 Dose: 200 mls/hr Losartan Potassium (Cozaar) 100 mg PO DAILY [facility] Last Admin: 11/10/19 07:23 Dose: 100 mg Methylprednisolone Sodium Succinate (Solu-Medrol) 125 mg IVPUSH Q12H [facility] Last Admin: 11/10/19 07:22 Dose: 125 mg Multivitamins/Minerals/Vitamin C (Tab-A-Thom) 1 tab PO BEDTIME [facility] Last Admin: 11/09/19 19:30 Dose: 1 tab Nitroglycerin (Nitrostat) 0.4 mg SL ASDIRECTED PRN PRN Reason: Chest Pain Potassium Chloride (Klor-Con M20) 20 meq PO TID [facility] Last Admin: 11/10/19 12:10 Dose: 20 meq Sodium Chloride (Saline Flush) 10 ml FLUSH Q12HR [facility] Last Admin: 11/10/19 07:24 Dose: 10 ml Sodium Chloride (Saline Flush) 10 ml FLUSH ASDIRECTED PRN PRN Reason: Keep Vein Open Last Admin: 11/10/19 12:11 Dose: 10 ml Spironolactone (Aldactone) 12.5 mg PO BID [facility] Last Admin: 11/10/19 07:22 Dose: 12.5 mg Umeclidinium/Vilanterol (Anoro Ellipta 62.5-25 Mcg) 0 mcg INH DAILY [facility] Last Admin: 11/10/19 07:26 Dose: 1 inh Vit C/Vit E/Zinc/Copper/Lutein (Ocuvite Lutein) 1 each PO DAILY [facility] Last Admin: 11/10/19 07:23 Dose: 1 each Warfarin Sodium (Coumadin) 4 mg PO DAILY@1800 [facility] Last Admin: 11/09/19 17:51 Dose: 4 mg Discontinued Medications Albuterol (Ventolin Hfa) 0 gm INH Q4HR PRN PRN Reason: Shortness of Breath Ceftriaxone Sodium (Rocephin) 1 gm IM ONETIME ONE Stop: 11/06/19 17:38 Last Admin: 11/06/19 18:03 Dose: 1 gm Furosemide (Lasix) 40 mg IVPUSH BID [facility] Last Admin: 11/07/19 08:17 Dose: 40 mg Hydrochlorothiazide (Hydrochlorothiazide) 25 mg PO DAILY [facility] Last Admin: 11/07/19 08:51 Dose: 25 mg Lidocaine HCl (Xylocaine-Mpf 1%) Confirm Administered Dose 5 ml .ROUTE .STK-MED ONE Stop: 11/06/19 17:57 Last Admin: 11/06/19 19:17 Dose: Not Given Lidocaine HCl (Xylocaine-Mpf 1%) 5 ml INJECT ONETIME ONE Stop: 11/06/19 18:19 Last Admin: 11/06/19 18:25 Dose: 2.1 ml Methylprednisolone Sodium Succinate (Solu-Medrol) 125 mg IM ONETIME ONE Stop: 11/06/19 17:39 Last Admin: 11/06/19 18:02 Dose: 125 mg Non-Formulary Medication (Losartan/Hydrochlorothiazide [Losartan-Hctz 100-25 Mg] ) 1 each PO DAILY [facility] Last Admin: 11/07/19 09:20 Dose: Not Given Non-Formulary Medication (Lutein/Minerals/Vit A,C & E [Ocuvite]) 1 tab PO DAILY [facility] Last Admin: 11/07/19 09:20 Dose: Not Given Non-Formulary Medication (Multivitamin-Min/Iron/Fa/Vit K [Multi-Day Plus Minerals Tablet]) 1 tab PO BEDTIME [facility] Last Admin: 11/06/19 20:03 Dose: Not Given Non-Formulary Medication (Potassium Chloride [Potassium Chloride]) 20 meq PO BID [facility] Last Admin: 11/07/19 09:20 Dose: Not Given Non-Formulary Medication (Warfarin) 4 mg PO DAILY [facility] Potassium Chloride (Klor-Con M20) 20 meq PO BID [facility] Last Admin: 11/07/19 08:51 Dose: 20 meq Warfarin Sodium (Coumadin) 8 mg PO ONETIME ONE Stop: 11/06/19 21:52 Last Admin: 11/06/19 22:18 Dose: 8 mg - Exam Quality Assessment: Reports: Supplemental Oxygen, DVT Prophylaxis General: Reports: Alert, Oriented, Cooperative, No Acute Distress HEENT: Reports: Pupils Equal, Pupils Reactive, EOMI, Mucous Membr. Moist/[place] Neck: Reports: Supple Lungs: Reports: Decreased Breath Sounds (right lower lung diminished breath sounds). Denies: Crackles, Rales, Rhonchi, Stridor, Wheezing Cardiovascular: Reports: Irregular Rhythm. Denies: No Murmurs GI/Abdominal Exam: Soft, Non-Tender, Other (obese) (Male) Exam: Deferred Rectal (Males) Exam: Deferred Back Exam: Denies: CVA Tenderness (L), CVA Tenderness (R), Muscle Spasm Extremities: Non-Tender, Pedal Edema Skin: Reports: Warm, Dry Neurological: Reports: No New Focal Deficit Psy/Mental Status: Reports: Alert, Normal Affect, Normal Mood
== END 2019-11-10 15:20 | DRG 291 ==
LOC: LL.ED 16:07 → LL.MS 18:30
PROVIDERS: ADMIT Family Medicine; ATTEND Family Medicine
DX: I11.0 Hypertensive heart disease with heart failure (principal); J18.9 Pneumonia, unspecified organism; J44.1 Chronic obstructive pulmonary disease with (acute) exacerbation; I48.11 Longstanding persistent atrial fibrillation; I38 Endocarditis, valve unspecified; Z68.42 Body mass index [BMI] 45.0-49.9, adult; Z51.5 Encounter for palliative care; I50.43 Acute on chronic combined systolic (congestive) and diastolic (congestive) heart failure; M15.0 Primary generalized (osteo)arthritis; D64.9 Anemia, unspecified; E88.09 Other disorders of plasma-protein metabolism, not elsewhere classified; E66.01 Morbid (severe) obesity due to excess calories; D50.8 Other iron deficiency anemias; Z88.1 Allergy status to other antibiotic agents; R09.02 Hypoxemia; Z95.2 Presence of prosthetic heart valve; M19.90 Unspecified osteoarthritis, unspecified site; E66.9 Obesity, unspecified; Z88.8 Allergy status to other drugs, medicaments and biological substances; Z79.01 Long term (current) use of anticoagulants; Z79.899 Other long term (current) drug therapy
CPT/HCPCS: 36415; 71046; 80048; 80053; 82550; 82553; 82607; 82728; 82746; 83036; 83540; 83550; 83605; 83735; 83880; 84484; 84550; 85025; 85610; 87040; 87070; 87205; 93005; 94640; 94761; 96372; 97161-GP; 99285-25; A9270-GY; J0696; J1940; J2001; J2930; J7050; J7620-GY

== ENCOUNTER 2020-11-01 15:04 | Inpatient (IN) | payer MEDICARE, BC ==
[2020-11-01] MEDS ORDERED: Famotidine 20 MG/2 ML SDV IVPUSH ONE (15:18)
--- NOTE | 2020-11-01 15:18 | EDM.PDOC ---
ED HPI GENERAL MEDICAL PROBLEM - General Chief Complaint: Respiratory Problem Stated Complaint: shortness of breath Time Seen by Provider: 11/01/20 15:10 Source of Information: Reports: Patient, Family (), Old Records ([facility] chart/EMR), Other ([facility] and [place] EMR reviewed.) History Limitations: Reports: No Limitations - History of Present Illness INITIAL COMMENTS - FREE TEXT/NARRATIVE: The patient was brought to the emergency room via private automobile by his for evaluation of progressive dyspnea and decreased exercise tolerance during th e last 6 months, however especially during the last week. The patient did have some nonspecific 2/10 retrosternal chest pressure without radiation at about 6 AM this morning with symptoms only lasted about 5 minutes with no medications taken at that time. He does have known significant heart disease as below. The patient denies any heart flutter, dizziness, orthostasis, diaphoresis, paresthesias, recent decreased exercise tolerance, or any other anginal-type symptoms. Note that the patient has chronic orthopnea, which has been stable with his weight also stable during the last couple of weeks, although his dependent edema has increased somewhat. No recent history of abdominal pain, heartburn, nausea, diarrhea, melena, gross hematochezia, or any food intolerance, including fatty foods, etc. with normal bowel movement earlier today. He denies any gross hematuria, colic, or other UTI symptoms. The patient also denies any recent fever, cough, wheezing, etc., although progressive dyspnea as above. He denies any current pain or discomfort. Onset: Gradual, Other (As above) Duration: Week(s):, Getting Worse Location: Reports: Other (No pain) Quality: Reports: Same as Previous Episode Severity: Moderate (Dyspnea) Improves with: Reports: Rest Worsens with: Reports: Movement (Ambulation/activity) Associated Symptoms: Reports: Chest Pain, Shortness of Breath, Weakness (Stable chronic). Denies: Confusion, Cough, Diaphoresis, Fever/Chills, Headaches, Loss of Appetite, Malaise, Nausea/Vomiting, Rash, Seizure, Syncope Treatments MANAGER MEDICAL AFFAIRS: Reports: Other (see below) (None) - Related Data Allergies Allergy/AdvReac Type Severity Reaction Status Date / Time atorvastatin [From Lipitor] Allergy Bleeding Verified 11/01/20 15:24 celecoxib [From Celebrex] Allergy Bleeding Verified 11/01/20 15:24 Home Meds: Home Meds Albuterol [Ventolin HFA] 2 puff INH Q4HR PRN 09/29/18 [History] Losartan/Hydrochlorothiazide [Losartan-HCTZ 100-25 MG] 1 each PO DAILY 09/29/18 [History] Nitroglycerin [Nitrostat] 0.4 mg SL ASDIRECTED PRN 09/29/18 [History] Potassium Chloride 20 meq PO DAILY 09/29/18 [History] Acetaminophen [Acetaminophen Extra Strength] 2 tab PO TID 11/06/19 [History] Lutein/Minerals/Vit A,C & E [Ocuvite] 1 tab PO DAILY 11/06/19 [History] Multivitamin-Min/Iron/FA/Vit K [Multi-Day Plus Minerals Tablet] 1 tab PO BEDTIME 11/06/19 [History] Umeclidinium Brm/Vilanterol Tr [Anoro Ellipta 62.5-25 MCG] 1 puff INH DAILY 11/06/19 [History] Bumetanide [Bumex] 2 mg PO DAILY@12 11/01/20 [History] Bumetanide [Bumex] 4 mg PO DAILY 11/01/20 [History] Ferrous Sulfate [Iron] 325 mg PO Q2D@08 11/01/20 [History] Spironolactone [Aldactone] 25 mg PO DAILY 11/01/20 [History] Warfarin [Coumadin] 5 mg PO SUTUTHSA@18 11/01/20 [History] Warfarin [Coumadin] 7 mg PO MOWEFR@18 11/01/20 [History] Past Medical History HEENT History: Reports: Hard of Hearing, Impaired Vision, Macular Degeneration, Other (See Below). Denies: Allergic Rhinitis, Cataract, Glaucoma, Otitis Media, Retinal Detachment, Sinusitis Other HEENT History: Patient wears glasses. He does have beginnings of macular degeneration with no treatment to this point. Mild bilateral presbycusis with no current therapy. Recurrent epistaxis secondary to his warfarin therapy. Cardiovascular History: Reports: Afib, Arrhythmia, CAD, Cardiomyopathy, Heart Murmur, Heart Valve Replacement, High Cholesterol, Hypertension, PVD, Other (See Below) (aortic and mitral disease.). Denies: Aneurysm, Blood Clots/VTE/DVT, NE, PTCA, Stents, Syncope Other Cardiovascular History: Mild coronary artery disease with 50% mid circu mflex coronary artery stenosis by recent heart catheterization as below. Moderate to severe cardiomegaly secondary to valvular disease as above with additional severe left atrial enlargement by echocardiogram as below. Peripheral vascular disease with secondary neuropathy as below. Significant aortic valve stenosis and mitral valve insufficiency requiring surgeries as below. Recurrent CHF with both systolic and additional grade 1 diastolic dysfunction. Chronic atrial fibrillation with warfarin therapy. PVCs and couplets. Respiratory History: Reports: Bronchitis, Recurrent, COPD, Intubation, Previous, Pneumonia, Recurrent, Sleep Apnea, Other (See Below). Denies: Asthma, Intubation, Difficult, PE, Pneumothorax, TB Other Respiratory History: Patient is compliant with his CPAP. Gastrointestinal History: Reports: Colon Polyp, Diverticulosis, Gastritis, GERD, GI Bleed, Hemorrhoids, Hiatal Hernia, PUD, Other (See Below). Denies: Bowel Obstruction, Celiac Disease, Chronic Constipation, Chronic Diarrhea, Fecal Incontinence, Hepatitis, Inflammatory Bowel Disease, Irritable Bowel Syndrome, Jaundice, Pancreatitis Other Gastrointestinal History: Severe upper GI bleed in 2008 requiring blood transfusion secondary to ulcer from concomitant use of Coumadin and NSAIDs. Unknown type of colonic polyps. Umbilical hernia. Genitourinary History: Reports: BPH, Chronic Renal Insuffiency, Diabetic Nephropathy, Prostate Disorder, Urinary Incontinence. Denies: Acute Renal Failure, Renal Calculus, STD, UTI, Recurrent Musculoskeletal History: Reports: Arthritis, Back Pain, Chronic, Fracture, Osteoarthritis, Other (See Below). Denies: Amputation, Gout, Osteoporosis, RA, SLE Other Musculoskeletal History: Right foot fracture requiring surgery in 1989. Neurological History: Reports: Neuropathy, Diabetic, Neuropathy, Peripheral, Other (See Below). Denies: Alzheimers Disease, Cerebral Aneurysms, Concussion, CVA, Headaches, Chronic, Head Trauma, Migraines, MS, Parkinson's, Seizure, TIA Other Neuro History: Peripheral neuropathy secondary to peripheral vascular disease. Psychiatric History: Reports: None. Denies: Abuse, Victim of, ADD, ADHD, Addiction, Alzheimers Disease, Anxiety, Depression, Eating Disorders, Psych Hospitalization(s), PTSD, Suicide Attempt, Suicidal Ideation Endocrine/Metabolic History: Reports: Diabetes, Type II, Obesity/BMI 30+, Other (See Below). Denies: Diabetes, Type I, Diabetes Mellitus, Type 3c, Hypothyroidism, IDDM Other Endocrine/Metabolic History: Borderline AODM currently diet controlled. Hypoalbuminemia. Hematologic History: Reports: Anemia, Blood Transfusion(s), Other (See Below). Denies: Transfusion Reaction Other Hematologic History: Severe upper GI bleed in 2008 requiring blood transfusion as above. Immunologic History: Denies: AIDS, HIV, SLE Oncologic (Cancer) History: Reports: None. Denies: Basal Cell Carcinoma, Colon, Hodgkin's Lymphoma, Leukemia, Lymphoma, Malignant Melanoma, Non-Hodgkin's Lymphoma, Prostate, Squamous Cell Carcinoma, Uterine Dermatologic History: Reports: None. Denies: Eczema, Psoriasis - Infectious Disease History Infectious Disease History: Reports: Chicken Pox, Influenza, Measles, Mumps. Denies: C-Difficile, Helicobacter Pylori, Meningitis, Mononucleosis, MRSA, Novel Coronavirus, Pertussis (Whooping Cough), Rheumatic Fever, Rubella, Scarlet Fever, Shingles, VRE - Past Surgical History HEENT Surgical History: Reports: Adenoidectomy, Oral Surgery, Tonsillectomy, Other (See Below). Denies: Cataract Surgery, Eye Surgery, Laser Surgery, LASIK, Myringotomy w Tube(s), Naso-Sinus Surgery Other HEENT Surgeries/Procedures: Tonsillectomy and adenoidectomy as a child. Multiple teeth extractions with current complete upper dentures. Cardiovascular Surgical History: Reports: Valve Replacement, Other (See Below). Denies: Aneurysm, Coronary Artery Bypass, Pacer, Percutaneous Transluminal Angioplasty, Varicose Other Cardiovascular Surgeries/Procedures: Mechanical mitral valve replacement on 12/10/1998. Bovine aortic valve replacement on 12/13/2018. Respiratory Surgical History: Reports: None. Denies: Thoracentesis (Looked up top to) GI Surgical History: Reports: Colonoscopy, EGD, Polypectomy, Other (See Below). Denies: Appendectomy, Cholecystectomy, Hernia, Abdominal, Hernia, Inguinal, Hernia Repair/Other Other GI Surgeries/Procedures: EGD in 2008 secondary to upper GI bleed as above. Colonoscopies including polypectomies on 03/10/2017 and 09/14/2014. Male Surgical History: Reports: Circumcision. Denies: TURP-Transurethral Resection of Prostate, Vasectomy Endocrine Surgical History: Reports: None. Denies: Thyroid Biopsy Neurological Surgical History: Reports: None. Denies: C-Spine, Discectomy, Laminectomy, Lumbar Spine, Sacral Spine, Spinal Fusion, Vertebroplasty Musculoskeletal Surgical History: Reports: ORIF, Other (See Below). Denies: Arthroscopic Procedure, Carpal Tunnel, Ganglion Cyst, Joint Replacement, Shoulder Surgery Other Musculoskeletal Surgeries/Procedures:: ORIF of right foot fractures in 1989. Oncologic Surgical History: Reports: None Dermatological Surgical History: Reports: None - Past Imaging History Past Imaging History: Reports: Angiography (Heart catheterization on 10/14/2018 showed 50% mid circumflex stenosis as above.), Cardiac Echo (Last echocardiogram on 11/11/2019 with ejection fraction of 55% and otherwise results as above. Previous echocardiograms on 02/16/2019, 12/13/2018, 09/19/2018, and multiple previous almost yearly echocardiograms since 01/03/2001.), Carotid US (Last on 11/15/2018 showing mild bilateral disease.), CAT Scan (CT of the abdomen and pelvis on 11/15/2018 and 03/05/2007.), PFT (08/11/2018 including diffusion studies.), Sleep Study (12/18/2008.), Stress Testing (Dobutamine Cardiolite stress test on 07/06/2002.), Ultrasound (Renal ultrasound on 02/13/2009. Abdominal aortic ultrasound on 03/31/2005.) Social & Family History - Family History HEENT: Reports: Glaucoma, Macular Degeneration, Other (See Below). Denies: Retinal Detachment Other HEENT Family History: Mother with glaucoma and macular degeneration. Cardiac: Reports: Blood Clots/VTE/DVT, CAD, Cardiomyopathy, Heart Failure, Hypertension, NE, Other (See Below). Denies: Afib, Aneurysm, Arrhythmia, Bypass, Heart Murmur, High Cholesterol, Pacemaker, Stent, Syncope Other Cardiac Family History: Father with fatal NE and CHF at age 79. Maternal grandfather with fatal NE at unknown age. Patient denies family history of coronary artery disease in his sister. Paternal uncle x2 with fatal NE in their 70s. Another paternal uncle with fatal NE at age 65. Brother with recurrent DVTs. Hypertension in multiple brothers and sisters. Respiratory: Reports: COPD, Other (See Below). Denies: Asthma, PE, Pneumothorax, Sleep Apnea Other Respiratory Family Hisory: Father and sisters x2 with a COPD with history of tobacco use. GI: Reports: None, Colon Polyps, Other (See Below). Denies: Celiac Disease, Cholelithiasis, GERD, GI bleed, Inflammatory Bowel Disease, Irritable Bowel Syndrome, PUD Other GI Family History: Sister with colon cancer as below. : Reports: Renal Calculus, Other (See Below). Denies: Renal Disease/Insufficiency Other Family History: Father and brother with urolithiasis. Sister with renal insufficiency. OBGYN: Reports: None. Denies: Endometriosis, Recurrent Spontaneous Musculoskeletal: Reports: None. Denies: Arthritis, Gout, Osteoarthritis, RA, SLE Neurological: Reports: CVA, Other (See Below). Denies: Alzheimers Disease, Cerebral Aneurysms, Dementia, Migraines, MS, Parkinson's, Seizure Other Neurological Family History: Paternal grandfather with fatal CVA in his 70s. Psychiatric: Reports: None. Denies: Abuse, Victim of, ADD, ADHD, Anxiety, Depression, Psych Hospitalization(s), Psychosis, PTSD, Suicide Attempt Endocrine/Metabolic: Reports: Diabetes, type II, Other (See Below). Denies: Diabetes, Type I, Diabetes Mellitus, Type 3c, Hypothyroidism, IDDM Other Endocrine/Metabolic Family History: Brother with AODM. Hematologic: Reports: None. Denies: Anemia, SLE Immunologic: Reports: None. Denies: AIDS, HIV, SLE Dermatologic: Reports: None. Denies: Eczema, Psoriasis Oncologic: Reports: Colon, Ovarian, Other (See Below). Denies: Breast, Cervix, Hodgkin's Lymphoma, Leukemia, Lymphoma, Non-Hodgkin's Lymphoma, Prostate, Skin Other Oncologic Family History: Sister with fatal colon cancer in her early 60s. Maternal grandmother with fatal ovarian cancer in her 30s with the patient denying history of ovarian cancer in his mother. - Tobacco Use Tobacco Use Status *Q: Former Tobacco User Tobacco Use Within Last Twelve Months: No Years of Tobacco use: 54 Packs/Tins Daily: 1 Packs/Tins Daily Comment: Patient smoked between ages 18 and 72 with maximum use of 4 packs/day. Used Tobacco, but Quit: Yes Smoking Cessation Information Provided To Patient: No Second Hand Smoke Exposure: No Second Hand Smoke Education Provided: No - Caffeine Use Caffeine Use: Reports: Coffee (1-2 cups/day), Soda (1 soda twice per week), Tea (1 glass every couple of weeks.). Denies: Energy Drinks - Alcohol Use Alcohol Use History: No Days Per Week of Alcohol Use: 0 Number of Drinks Per Day: 0 Number of Drinks Per Day Comment: No previous DWIs, problems with alcohol abuse, etc. Total Drinks Per Week: 0 Alcohol Use in Last Twelve Months: No - Recreational Drug Use Recreational Drug Use: No Drug Use in Last 12 Months: No Recreational Drug Type: Denies: Amphetamines (Speed), Cocaine, Heroin, Inhalants (Glues, Solvents, Aerosols), LSD (Acid), Methamphetamine, Morphine, Oxycodone - Living Situation & Occupation Living situation: Reports: (1967. 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 ED EXAM, GENERAL - Physical Exam Exam: See Below Exam Limited By: No Limitations General Appearance: Alert, WD/WN, No Apparent Distress Eye Exam: Bilateral Eye: EOMI, Normal Inspection (No vertigo or nystagmus. The patient is wearing glasses.), PERRL Ears: Normal External Exam, Normal Canal, Normal TMs, Hearing Loss (Mild bilateral presbycusis) Nose: Normal Inspection, Normal Mucosa, No Blood Throat/Mouth: Normal Inspection, Normal Lips, Normal Teeth (Complete upper dentures with only few remaining lower dentition.), Normal Gums, Normal Oropharynx, Normal Voice, No Airway Compromise. No: Dysphagia, Inflammation, Perioral Cyanosis Head: Atraumatic, Normocephalic. No: Facial Swelling, Facial Tenderness, Sinus Tenderness Neck: Normal Inspection, Supple, Non-Tender, Full Range of Motion, Carotid Bruit (Mild bilateral carotid bruits). No: Lymphadenopathy (L), Lymphadenopathy (R), Thyromegaly Respiratory/Chest: No Respiratory Distress, No Accessory Muscle Use, Chest Non- Tender, Decreased Breath Sounds (Decreased right base), Rales (Mild diffuse bilateral rales particularly on the basis). No: Rhonchi, Wheezing, Pleural Rub, Retractions Cardiovascular: Normal Peripheral Pulses, No Murmur, No Rub, Systolic Murmur, Irregularly Irregular, Other (Mechanical mitral valve click). No: No Edema (Dependent edema as below), Gallop/S3, Gallop/S4, Friction Rub Peripheral Pulses: 1+: Dorsalis Pedis (L), 2+: Radial (L), Radial (R) GI/Abdominal: Normal Bowel Sounds, Soft, Non-Tender, No Organomegaly, No Distention, No Abnormal Bruit, Hernia (2-3 cm umbilical hernia), Other (Obese). No: Guarding (Male) Exam: Deferred Rectal (Males) Exam: Deferred Back Exam: Normal Inspection, Full Range of Motion. No: CVA Tenderness (L), CVA Tenderness (R), Muscle Spasm Extremities: Normal Range of Motion, Non-Tender, Normal Capillary Refill, Pedal Edema (Moderate lymphedema of the lower extremities). No: Magdalena's Sign Neurological: Alert, Oriented, CN II-XII Intact, Normal Cognition, No Motor/Sensory Deficits, Other (Generalized weakness with walker use requiredstable by history) Psychiatric: Normal Affect, Normal Mood Skin Exam: Warm, Dry, Intact, Normal Color, No Rash. No: Diaphoretic, Wound/Incision Lymphatic: No Adenopathy #1 Interpretation EKG Date: 11/01/20 Time: 15:24 Rhythm: A-Fib (With additional PVCs with couplets also present in last EKG) Rate (Beats/Min): 77 [place]: Normal (Left cardiac axis) P-Wave: Variable QRS: Wide (0.09 seconds representing stable repolarization changes) ST-T: Other (Stable nonspecific ST changes in leads I and aVL) QT: Normal AK/PQ Interval: Variable. Stable poor R wave progression in the anterior leads. Comparison: No Change (From last EKG on 11/09/2019.) EKG Interpretation Comments: 1. Questionable stable lateral wall cardiac ischemia 2. Atrial fibrillation 3. PVCs with history of couplets. Course - Vital Signs Last Recorded V/S: Last Vital Signs Temp 36.6 C 11/01/20 15:04 Pulse 77 11/01/20 16:55 Resp 25 H 11/01/20 16:55 BP 142/62 H 11/01/20 16:55 Pulse Ox 97 11/01/20 16:55 Vital Signs - 24 hr 11/01/20 11/01/20 11/01/20 15:04 15:20 15:35 Temperature [ 36.6 C Temporal] Pulse, 89 72 76 Peripheral [ Left Pulse Oximetry] Respiratory 24 H 24 H 25 H Rate Blood Pressure 103/52 L 116/60 [Left Upper Arm ] O2 Sat by Pulse 90 L 96 98 Oximetry 11/01/20 11/01/20 11/01/20 15:52 15:56 16:10 Temperature [ Temporal] Pulse, 77 72 71 Peripheral [ Left Pulse Oximetry] Respiratory 28 H 26 H 25 H Rate Blood Pressure 150/73 H 128/53 L 130/61 [Left Upper Arm ] O2 Sat by Pulse 98 98 96 Oximetry 11/01/20 11/01/20 11/01/20 16:25 16:40 16:55 Temperature [ Temporal] Pulse, 70 73 77 Peripheral [ Left Pulse Oximetry] Respiratory 26 H 22 H 25 H Rate Blood Pressure 110/54 L 123/54 L 142/62 H [Left Upper Arm ] O2 Sat by Pulse 96 96 97 Oximetry - Orders/Labs/Meds Orders: Active Orders 24 hr Category Date Time Status Cardiac Monitoring [RC] . DIRECTED Care 11/01/20 15:18 Active EKG Documentation Completion [RC] ASDIRECTED Care 11/01/20 15:18 Active Oxygen Therapy, ED [RC] CONTINUOUS Care 11/01/20 15:18 Active Peripheral IV Care [RC] . DIRECTED Care 11/01/20 15:18 Active Pulse Oximetry [RC] CONTINUOUS Care 11/01/20 15:18 Active Up With Assistance [RC] PFP Care 11/01/20 15:18 Active Vital Signs [RC] PFP Care 11/01/20 15:18 Active Nothing per Oral Now Diet [DIET] Diet 11/01/20 Breakfast Active Chest 1V Frontal [CR] Stat Exams 11/01/20 15:18 Taken CORONAVIRUS COVID-19 SOLEDAD [MOLEC] Routine Lab 11/01/20 15:40 Received Sodium Chloride 0.9% [Saline Flush] Med 11/01/20 15:18 Active 10 ml FLUSH ASDIRECTED PRN Obtain Past Medical Record [OM.PC] Urgent Oth 11/01/20 15:18 Active Peripheral IV Insertion Adult [OM.PC] Stat Oth 11/01/20 15:18 Ordered Resuscitation Status Stat Resus Stat 11/01/20 15:18 Ordered Medication Orders Sodium Chloride (Saline Flush) 10 ml FLUSH ASDIRECTED PRN PRN Reason: Keep Vein Open Last Admin: 11/01/20 15:33 Dose: 10 ml Documented by: RAJI Labs: Laboratory Tests 11/01/20 11/01/20 11/01/20 Range/Units 15:30 15:30 15:30 WBC 10.6 H (4.0-10.2) K/uL RBC 3.20 L (4.33-5.41) M/uL Hgb 9.5 L D (13.1-16.8) g/dL Hct 31.2 L (39.0-49.0) % MCV 97.5 (84.0-98.0) fL MCH 29.7 (28.2-33.3) pg MCHC 30.4 L (31.7-36.0) g/dL RDW 14.5 H (11.2-14.1) % Plt Count 256 D (150-350) K/uL Neut % (Auto) 71.6 (45.0-80.0) % Lymph % (Auto) 13.8 (10.0-50.0) % [place] % (Auto) 12.1 (2.0-14.0) % Eos % (Auto) 2.2 (0.0-5.0) % Baso % (Auto) 0.3 (0.0-2.0) % Neut # (Auto) 7.57 H (1.40-7.00) K/uL Lymph # (Auto) 1.46 (0.50-3.50) K/uL [place] # (Auto) 1.28 H (0.00-1.00) K/uL Eos # (Auto) 0.23 (0.00-0.50) K/uL Baso # (Auto) 0.03 (0.00-0.20) K/uL PT 26.4 H (9.5-12.0) SEC INR 2.7 APTT 37.7 H (24.5-32.8) SEC D-Dimer, Quantitative 361 (0-400) ng/mL Sodium (136-145) mmol/L Potassium (3.5-5.1) mmol/L Chloride (98-107) mmol/L Carbon Dioxide (21.0-32.0) mmol/L BUN (7-18) mg/dL Creatinine (0.51-1.17) mg/dL Est Cr Clr Drug Dosing mL/min Estimated GFR (MDRD) mL/min Glucose (70-99) mg/dL Lactic Acid (0.4-2.0) mmol/L Uric Acid (2.6-7.2) mg/dL Calcium (8.5-10.1) mg/dL Magnesium (1.8-2.4) mg/dL Total Bilirubin (0.2-1.0) mg/dL AST (15-37) U/L ALT (12-78) U/L Alkaline Phosphatase (46-116) IU/L Creatine Kinase (26-308) U/L Creatine Kinase Index (0.0-2.5) % CK-MB (CK-2) (0.00-3.60) ng/mL Troponin I (0.000-0.056) ng/mL NT-Pro-B Natriuret Pep (0-125) pg/mL Total Protein (6.4-8.2) g/dL Albumin (3.4-5.0) g/dL TSH, Ultra Sensitive (0.358-3.740) mIU/mL SARS-CoV-2 Ag (Rapid) (NEGATIVE) 11/01/20 11/01/20 11/01/20 Range/Units 15:30 15:30 15:40 WBC (4.0-10.2) K/uL RBC (4.33-5.41) M/uL Hgb (13.1-16.8) g/dL Hct (39.0-49.0) % MCV (84.0-98.0) fL MCH (28.2-33.3) pg MCHC (31.7-36.0) g/dL RDW (11.2-14.1) % Plt Count (150-350) K/uL Neut % (Auto) (45.0-80.0) % Lymph % (Auto) (10.0-50.0) % [place] % (Auto) (2.0-14.0) % Eos % (Auto) (0.0-5.0) % Baso % (Auto) (0.0-2.0) % Neut # (Auto) (1.40-7.00) K/uL Lymph # (Auto) (0.50-3.50) K/uL [place] # (Auto) (0.00-1.00) K/uL Eos # (Auto) (0.00-0.50) K/uL Baso # (Auto) (0.00-0.20) K/uL PT (9.5-12.0) SEC INR APTT (24.5-32.8) SEC D-Dimer, Quantitative (0-400) ng/mL Sodium 141 (136-145) mmol/L Potassium 4.4 (3.5-5.1) mmol/L Chloride 103 (98-107) mmol/L Carbon Dioxide 32.4 H (21.0-32.0) mmol/L BUN 69 H D (7-18) mg/dL Creatinine 1.48 H (0.51-1.17) mg/dL Est Cr Clr Drug Dosing 47.24 mL/min Estimated GFR (MDRD) 46 mL/min Glucose 97 (70-99) mg/dL Lactic Acid 1.1 (0.4-2.0) mmol/L Uric Acid 9.0 H (2.6-7.2) mg/dL Calcium 9.2 (8.5-10.1) mg/dL Magnesium 2.4 (1.8-2.4) mg/dL Total Bilirubin 0.7 (0.2-1.0) mg/dL AST 20 (15-37) U/L ALT 21 (12-78) U/L Alkaline Phosphatase 76 (46-116) IU/L Creatine Kinase 39 (26-308) U/L Creatine Kinase Index 1.5 (0.0-2.5) % CK-MB (CK-2) 0.60 (0.00-3.60) ng/mL Troponin I 0.048 (0.000-0.056) ng/mL NT-Pro-B Natriuret Pep 700 H (0-125) pg/mL Total Protein 7.8 (6.4-8.2) g/dL Albumin 3.6 (3.4-5.0) g/dL TSH, Ultra Sensitive 0.850 (0.358-3.740) mIU/mL SARS-CoV-2 Ag (Rapid) Negative (NEGATIVE) Meds: Medications Generic Name Dose Route Start Last Admin Trade Name Freq PRN Reason Stop Dose Admin Sodium Chloride 10 ml 11/01/20 15:18 11/01/20 15:33 Saline Flush FLUSH 10 ml ASDIRECTED PRN Administration Keep Vein Open Discontinued Medications Generic Name Dose Route Start Last Admin Trade Name Sajiq PRN Reason Stop Dose Admin Famotidine 40 mg 11/01/20 15:18 11/01/20 15:33 Pepcid IVPUSH 11/01/20 15:19 40 mg ONETIME ONE Administration - Radiology Interpretation Free Text/Narrative:: cardiac monitor technician showed atrial fibrillation with average heart rate in the 70s and only very occasional PVCs. Chest x-ray, portable, showed moderate to severe cardiomegaly with mild CHF including right pleural effusion. Elevated right hemidiaphragm with possible additional atelectasis in the right lower lobe. Pulmonary infiltrates are difficult to assess secondary to CHF. Moderate COPD changes noted. No pneumothorax. Somewhat prominent aortic arch. Status post medial sternotomy secondary to valvular surgery. Departure - Departure Time of Disposition: 17:30 Disposition: Admitted As Inpatient 64 Condition: Good Clinical Impression: Hypoalbuminemia, Peptic reflux disease, Renal insufficiency, Hyperuricemia COPD (chronic obstructive pulmonary disease) Qualifiers: COPD type: COPD with acute lower respiratory infection Qualified Code(s): J44.0 - Chronic obstructive pulmonary disease with (acute) lower respiratory infection Atrial fibrillation Qualifiers: Atrial fibrillation type: longstanding persistent Qualified Code(s): I48.11 - Longstanding persistent atrial fibrillation CHF (congestive heart failure) Qualifiers: Heart failure type: combined systolic and diastolic Heart failure chronicity: acute on chronic Qualified Code(s): I50.43 - Acute on chronic combined systolic (congestive) and diastolic (congestive) heart failure Hypertension Qualifiers: Hypertension type: essential hypertension Qualified Code(s): I10 - Essential (primary) hypertension Osteoarthritis Qualifiers: Osteoarthritis location: multiple joints Osteoarthritis type: primary Qualified Code(s): M15.0 - Primary generalized (osteo)arthritis Anemia Qualifiers: Anemia type: iron deficiency Iron deficiency anemia type: other iron deficiency Qualified Code(s): D50.8 - Other iron deficiency anemias - Discharge Information *PRESCRIPTION DRUG MONITORING PROGRAM REVIEWED*: Not Applicable *COPY OF PRESCRIPTION DRUG MONITORING REPORT IN PATIENT KELLIE: Not Applicable Sepsis Event Note (ED) - Evaluation Sepsis Screening Result: No Definite Risk - Focused Exam Vital Signs: Vital Signs Temp Pulse Resp BP Pulse Ox 11/01/20 16:55 77 25 H 142/62 H 97 03/05/21 16:40 73 22 H 123/54 L 96 11/01/20 16:25 70 26 H 110/54 L 96 11/01/20 16:10 71 25 H 130/61 96 11/01/20 15:56 72 26 H 128/53 L 98 11/01/20 15:52 77 28 H 150/73 H 98 11/01/20 15:35 76 25 H 116/60 98 11/01/20 15:20 72 24 H 103/52 L 96 11/01/20 15:04 36.6 C 89 24 H 90 L - Problem List & Annotations (1) CHF (congestive heart failure) SNOMED Code(s): 93937670 Code(s): I50.9 - HEART FAILURE, UNSPECIFIED Status: Chronic Priority: High Current Visit: Yes Annotation/Comment:: Mild to moderate CHF refractory to high-dose outpatient Bumex therapy. Initiate IV Lasix therapy on admission. Note borderline nonspecific chest pain earlier this morning but no true anginal complaints at this time. Patient is already on warfarin. Initiate standard rule out NE orders. Cardiology consultation depending on his clinical course. Qualifiers: Heart failure type: combined systolic and diastolic Heart failure chronicity: acute on chronic Qualified Code(s): I50.43 - Acute on chronic combined systolic (congestive) and diastolic (congestive) heart failure (2) COPD (chronic obstructive pulmonary disease) SNOMED Code(s): 56449119 Code(s): J44.9 - CHRONIC OBSTRUCTIVE PULMONARY DISEASE, UNSPECIFIED Status: Acute Priority: High Current Visit: Yes Annotation/Comment:: Known O2 dependent COPD with no recent fever or bronchitic type symptoms. Qualifiers: COPD type: COPD with acute lower respiratory infection Qualified Code(s): J44.0 - Chronic obstructive pulmonary disease with (acute) lower respiratory infection (3) Atrial fibrillation SNOMED Code(s): 07034787 Code(s): I48.91 - UNSPECIFIED ATRIAL FIBRILLATION Status: Chronic Priority: Medium Current Visit: Yes Annotation/Comment:: INR therapeutic therapeutic at 2.7. Qualifiers: Atrial fibrillation type: longstanding persistent Qualified Code(s): I48.11 - Longstanding persistent atrial fibrillation (4) Osteoarthritis SNOMED Code(s): 034056364 Code(s): M19.90 - UNSPECIFIED OSTEOARTHRITIS, UNSPECIFIED SITE Status: Chronic Priority: Medium Current Visit: Yes Annotation/Comment:: Chronic, unchanged acutely. 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 High-dose IV Pepcid given as GI prophylaxis. Anemia work-up in the a.m. (6) Renal insufficiency SNOMED Code(s): 207671423, 092919086 Code(s): N28.9 - DISORDER OF KIDNEY AND URETER, UNSPECIFIED Status: Chronic Priority: Medium Current Visit: Yes Annotation/Comment:: Continue to observe closely secondary to IV Lasix therapy (7) Hypertension SNOMED Code(s): 18818697 Code(s): I10 - ESSENTIAL (PRIMARY) HYPERTENSION Status: Chronic Priority: Medium Current Visit: Yes Annotation/Comment:: Continue to observe closely. Note Lasix therapy. Qualifiers: Hypertension type: essential hypertension Qualified Code(s): I10 - Essential (primary) hypertension (8) Hyperuricemia SNOMED Code(s): 31225933 Code(s): E79.0 - HYPERURICEMIA W/O SIGNS OF INFLAM ARTHRIT AND TOPHACEOUS DIS Status: Acute Priority: Medium Current Visit: Yes Onset Date: 11/01/20 Annotation/Comment:: Newly diagnosed. Continue to observe closely secondary IV Lasix therapy no previous history of gout. (9) Anemia SNOMED Code(s): 489992512 Code(s): D64.9 - ANEMIA, UNSPECIFIED Status: Chronic Priority: Medium Current Visit: Yes Onset Date: ~11/08/19 Annotation/Comment:: No evidence of GI bleed. Work-up in the a.m. as above. Qualifiers: Anemia type: iron deficiency Iron deficiency anemia type: other iron deficiency Qualified Code(s): D50.8 - Other iron deficiency anemias - Problem List Review Problem List Initiated/Reviewed/Updated: Yes - My Orders Last 24 Hours: My Active Orders 11/01/20 Breakfast Nothing per Oral Now Diet [DIET] 11/01/20 15:18 Cardiac Monitoring [RC] . DIRECTED EKG Documentation Completion [RC] ASDIRECTED Oxygen Therapy, ED [RC] CONTINUOUS Peripheral IV Care [RC] . DIRECTED Pulse Oximetry [RC] CONTINUOUS Up With Assistance [RC] PFP Vital Signs [RC] PFP Chest 1V Frontal [CR] Stat Sodium Chloride 0.9% [Saline Flush] 10 ml FLUSH ASDIRECTED PRN Obtain Past Medical Record [OM.PC] Urgent Peripheral IV Insertion Adult [OM.PC] Stat Resuscitation Status Stat 11/01/20 15:40 CORONAVIRUS COVID-19 [facility] [[facility]] Routine - Assessment/Plan Admission H&P: Please use this note as an admission H&P Last 24 Hours: My Active Orders 11/01/20 Breakfast Nothing per Oral Now Diet [DIET] 11/01/20 15:18 Cardiac Monitoring [RC] . DIRECTED EKG Documentation Completion [RC] ASDIRECTED Oxygen Therapy, ED [RC] CONTINUOUS Peripheral IV Care [RC] . DIRECTED Pulse Oximetry [RC] CONTINUOUS Up With Assistance [RC] PFP Vital Signs [RC] PFP Chest 1V Frontal [CR] Stat Sodium Chloride 0.9% [Saline Flush] 10 ml FLUSH ASDIRECTED PRN Obtain Past Medical Record [OM.PC] Urgent Peripheral IV Insertion Adult [OM.PC] Stat Resuscitation Status Stat 11/01/20 15:40 CORONAVIRUS COVID-19 [facility] [[facility]] Routine Assessment:: As above Plan: As above. Extensive precautions were given to the patient and his , who are in agreement with the treatment plan. The patient will require about 3-4 days of inpatient/acute care secondary to multiple health problems as above.
[2020-11-01] MEDS: Sodium Chloride 0.9% 10 ML Syringe FLUSH PRN (15:33)
[2020-11-01 15:59] LABS: PTT,PARTIAL THROMBOPLSTIN TIME 37.7 SEC (24.5-32.8)
[2020-11-01] MEDS ORDERED: Albuterol 6.7 GM Inhaler INH PRN (18:05)
[2020-11-01] MEDS ORDERED: Acetaminophen 500 MG Tab PO SCH (18:05)
[2020-11-01] MEDS ORDERED: Temazepam 15 MG Cap PO PRN (18:10)
[2020-11-01] MEDS: Multivitamin Tab PO SCH (19:07)
[2020-11-01] MEDS: Potassium Chloride 20 MEQ Tab.ER PO SCH (19:07)
[2020-11-01] MEDS: Furosemide 40 MG/4 ML VIAL IVPUSH SCH (19:10)
[2020-11-01] MEDS: Warfarin 2 MG Tab PO SCH (19:10)
[2020-11-01] MEDS: Acetaminophen 500 MG Tab PO SCH (23:08)
[2020-11-02] MEDS: Furosemide 40 MG/4 ML VIAL IVPUSH SCH ×3 (03:52→17:50)
[2020-11-02] MEDS: Sodium Chloride 0.9% 10 ML Syringe FLUSH PRN ×3 (03:54→17:50)
[2020-11-02] MEDS: Acetaminophen 500 MG Tab PO SCH ×3 (07:43→23:26)
[2020-11-02] MEDS: Losartan 50 MG Tab PO SCH (07:43)
[2020-11-02] MEDS: Beta-Carotene (Vitamin A) w/Vitamin C & E plus Minerals Tab PO SCH (07:44)
[2020-11-02] MEDS: Hydrochlorothiazide 25 MG Tab PO SCH (07:44)
[2020-11-02] MEDS: Spironolactone 25 MG Tab PO SCH (07:44)
[2020-11-02] MEDS: Potassium Chloride 20 MEQ Tab.ER PO SCH ×2 (07:44→17:51)
[2020-11-02 07:50] LABS: HEMOGLOBIN A1C 5.8 % (4.3-5.7)
[2020-11-02] MEDS ORDERED: Betamethasone Dipropionate/Clotrimazole 0.05-1% Crm 15 GM Tube TOP SCH (08:00)
[2020-11-02] MEDS: VILANTEROL INH SCH (10:10)
[2020-11-02] MEDS: UMECLIDINIUM BRM INH SCH (10:10)
--- NOTE | 2020-11-02 17:12 | PCM.PN ---
- General Info Date of Service: 11/02/20 Admission Dx/Problem (Free Text): CHF/SOB Subjective Update: Patient feels that SOB has improved Functional Status: Reports: Pain Controlled, Tolerating Diet. Denies: New Symptoms Pain Score: 0 - Review of Systems General: Reports: Fatigue (chronic/unchanged). Denies: Fever, Malaise, Chills, Night Sweats, Appetite HEENT: Denies: Headaches, Post Nasal Drip, Sinus Congestion, Sore Throat, Visual Changes Pulmonary: Reports: Shortness of Breath. Denies: Pleuritic Chest Pain, Cough, Sputum, Hemoptysis, Wheezing Cardiovascular: Reports: Dyspnea on Exertion, Edema. Denies: Chest Pain, Palpitations, PND, Lightheadedness Gastrointestinal: Denies: Abdominal Pain, Decreased Appetite, Diarrhea, Difficulty Swallowing, Melena, Nausea, Vomiting Genitourinary: Denies: Dysuria, Frequency, Pain, Urgency, Flank Pain Musculoskeletal: Reports: Other (no acute changes from baseline) Skin: Reports: No Symptoms Neurological: Reports: Difficulty Walking (chronic). Denies: Confusion, Dizziness, Headache, Change in Speech Psychiatric: Reports: No Symptoms - Patient Data Vitals - Most Recent: Last Vital Signs Temp 36.6 C 11/02/20 14:00 Pulse 75 11/02/20 14:00 Resp 19 11/02/20 14:00 BP 133/77 11/02/20 14:00 Pulse Ox 97 11/02/20 14:00 Weight - Most Recent: 156.399 kg I&O - Last 24 Hours: Intake & Output 11/02/20 11/02/20 11/02/20 06:59 14:59 22:59 Intake Total 660 Output Total 1200 1100 Balance -1200 -440 Lab Results Last 24 Hours: Laboratory Results - last 24 hr 11/01/20 11/02/20 11/02/20 Range/Units 07:30 07:38 07:38 WBC (4.0-10.2) K/uL RBC (4.33-5.41) M/uL Hgb (13.1-16.8) g/dL Hct (39.0-49.0) % MCV (84.0-98.0) fL MCH (28.2-33.3) pg MCHC (31.7-36.0) g/dL RDW (11.2-14.1) % Plt Count (150-350) K/uL Neut % (Auto) (45.0-80.0) % Lymph % (Auto) (10.0-50.0) % [place] % (Auto) (2.0-14.0) % Eos % (Auto) (0.0-5.0) % Baso % (Auto) (0.0-2.0) % Neut # (Auto) (1.40-7.00) K/uL Lymph # (Auto) (0.50-3.50) K/uL [place] # (Auto) (0.00-1.00) K/uL Eos # (Auto) (0.00-0.50) K/uL Baso # (Auto) (0.00-0.20) K/uL Sodium 143 (136-145) mmol/L Potassium 4.2 (3.5-5.1) mmol/L Chloride 104 (98-107) mmol/L Carbon Dioxide 35.1 H (21.0-32.0) mmol/L BUN 65 H (7-18) mg/dL Creatinine 1.47 H (0.51-1.17) mg/dL Est Cr Clr Drug Dosing 47.56 mL/min Estimated GFR (MDRD) 46 mL/min Glucose 121 H (70-99) mg/dL Hemoglobin A1c (4.3-5.7) % Calcium 9.7 (8.5-10.1) mg/dL Iron 27 L (50-175) ug/dL TIBC 387 (250-450) ug/dL % Saturation 6.47913 Ferritin 55 (8-388) ng/mL Total Bilirubin 0.5 (0.2-1.0) mg/dL AST 21 (15-37) U/L ALT 21 (12-78) U/L Alkaline Phosphatase 77 (46-116) IU/L Creatine Kinase 38 (26-308) U/L Creatine Kinase Index 3.2 H (0.0-2.5) % CK-MB (CK-2) 1.20 (0.00-3.60) ng/mL Troponin I 0.019 (0.000-0.056) ng/mL NT-Pro-B Natriuret Pep 647 H (0-125) pg/mL Total Protein 7.8 (6.4-8.2) g/dL Albumin 3.7 (3.4-5.0) g/dL Triglycerides 135 (30-150) mg/dL Cholesterol 222 H (100-200) mg/dL LDL Cholesterol, Calc 159 H (0-100) mg/dL HDL Cholesterol 36 L (40-60) mg/dL Vitamin B12 354 (193-986) pg/mL Folate 23.7 (8.6-58.9) ng/mL SARS-CoV-2 RNA ([facility]) Negative (NEGATIVE) 11/02/20 11/02/20 Range/Units 07:38 07:38 WBC 8.6 (4.0-10.2) K/uL RBC 3.36 L (4.33-5.41) M/uL Hgb 10.0 L (13.1-16.8) g/dL Hct 33.2 L (39.0-49.0) % MCV 98.8 H (84.0-98.0) fL MCH 29.8 (28.2-33.3) pg MCHC 30.1 L (31.7-36.0) g/dL RDW 14.5 H (11.2-14.1) % Plt Count 231 (150-350) K/uL Neut % (Auto) 73.6 (45.0-80.0) % Lymph % (Auto) 10.1 (10.0-50.0) % [place] % (Auto) 12.9 (2.0-14.0) % Eos % (Auto) 3.2 (0.0-5.0) % Baso % (Auto) 0.2 (0.0-2.0) % Neut # (Auto) 6.34 (1.40-7.00) K/uL Lymph # (Auto) 0.87 (0.50-3.50) K/uL [place] # (Auto) 1.11 H (0.00-1.00) K/uL Eos # (Auto) 0.28 (0.00-0.50) K/uL Baso # (Auto) 0.02 (0.00-0.20) K/uL Sodium (136-145) mmol/L Potassium (3.5-5.1) mmol/L Chloride (98-107) mmol/L Carbon Dioxide (21.0-32.0) mmol/L BUN (7-18) mg/dL Creatinine (0.51-1.17) mg/dL Est Cr Clr Drug Dosing mL/min Estimated GFR (MDRD) mL/min Glucose (70-99) mg/dL Hemoglobin A1c 5.8 H (4.3-5.7) % Calcium (8.5-10.1) mg/dL Iron (50-175) ug/dL TIBC (250-450) ug/dL % Saturation Ferritin (8-388) ng/mL Total Bilirubin (0.2-1.0) mg/dL AST (15-37) U/L ALT (12-78) U/L Alkaline Phosphatase (46-116) IU/L Creatine Kinase (26-308) U/L Creatine Kinase Index (0.0-2.5) % CK-MB (CK-2) (0.00-3.60) ng/mL Troponin I (0.000-0.056) ng/mL NT-Pro-B Natriuret Pep (0-125) pg/mL Total Protein (6.4-8.2) g/dL Albumin (3.4-5.0) g/dL Triglycerides (30-150) mg/dL Cholesterol (100-200) mg/dL LDL Cholesterol, Calc (0-100) mg/dL HDL Cholesterol (40-60) mg/dL Vitamin B12 (193-986) pg/mL Folate (8.6-58.9) ng/mL SARS-CoV-2 RNA ([facility]) (NEGATIVE) Med Orders - Current: Current Medications Acetaminophen (Tylenol Extra Strength) 1,000 mg PO TID@0800,1800,2300 [facility] Last Admin: 11/02/20 07:43 Dose: 1,000 mg Documented by: Albuterol (Proventil Hfa) 0 gm INH Q4HR PRN PRN Reason: Shortness of Breath Betamethasone/Clotrimazole (Lotrisone) 0 gm TOP BID [facility] Last Admin: 11/02/20 07:42 Dose: 1 applic Documented by: Ferrous Sulfate (Ferrous Sulfate) 325 mg PO Q2D@08 [facility] Furosemide (Lasix) 40 mg IVPUSH BID [facility] Hydrochlorothiazide (Hydrochlorothiazide) 25 mg PO DAILY [facility] Last Admin: 11/02/20 07:44 Dose: 25 mg Documented by: Losartan Potassium (Cozaar) 100 mg PO DAILY [facility] Last Admin: 11/02/20 07:43 Dose: 100 mg Documented by: Multivitamins/Minerals (Prosight) 1 tab PO DAILY [facility] Last Admin: 11/02/20 07:44 Dose: 1 tab Documented by: Multivitamins/Minerals/Vitamin C (Tab-A-Thom) 1 tab PO BEDTIME [facility] Last Admin: 11/01/20 19:07 Dose: 1 tab Documented by: Umeclidinium Brm/Vilanterol (Anoro Ellipta) 62.5-25 Mcg 1 puff INH DAILY [facility] Last Admin: 11/02/20 10:10 Dose: 1 puff Documented by: Potassium Chloride (Klor-Con M20) 20 meq PO BID [facility] Last Admin: 11/02/20 07:44 Dose: 20 meq Documented by: Sodium Chloride (Saline Flush) 10 ml FLUSH ASDIRECTED PRN PRN Reason: Keep Vein Open Last Admin: 11/02/20 10:10 Dose: 10 ml Documented by: Sodium Chloride (Saline Flush) 10 ml FLUSH Q12HR PRN PRN Reason: Keep Vein Open Last Admin: 11/02/20 03:54 Dose: 10 ml Documented by: Spironolactone (Aldactone) 25 mg PO DAILY [facility] Last Admin: 11/02/20 07:44 Dose: 25 mg Documented by: Temazepam (Restoril) 15 mg PO BEDTIME PRN PRN Reason: Insomnia Warfarin Sodium (Coumadin) 5 mg PO SUTUTHSA@18 [facility] Warfarin Sodium (Coumadin) 7 mg PO MOWEFR@18 [facility] Last Admin: 11/01/20 19:10 Dose: 7 mg Documented by: Discontinued Medications Acetaminophen (Tylenol Extra Strength) 1,000 mg PO TID [facility] Last Admin: 11/01/20 19:09 Dose: 1,000 mg Documented by: Famotidine (Pepcid) 40 mg IVPUSH ONETIME ONE Stop: 11/01/20 15:19 Last Admin: 11/01/20 15:33 Dose: 40 mg Documented by: Furosemide (Lasix) 40 mg IVPUSH Q8H [facility] Last Admin: 11/02/20 10:10 Dose: 40 mg Documented by: - Exam Quality Assessment: Supplemental Oxygen General: Alert, Oriented HEENT: Pupils Equal, Pupils Reactive, EOMI, Mucous Membr. Moist/Paragon Neck: Supple Lungs: Clear to Auscultation, Normal Respiratory Effort Cardiovascular: Irregular Rhythm, Other (has audible click from artificial valve). No: Murmurs GI/Abdominal Exam: Normal Bowel Sounds, Soft, Non-Tender, Other (morbidly obese) (Male) Exam: Deferred Back Exam: No: CVA Tenderness (L), CVA Tenderness (R), Muscle Spasm, Paraspinal Tenderness, Vertebral Tenderness Extremities: Non-Tender, Normal Capillary Refill, Pedal Edema Skin: Warm, Dry Neurological: No New Focal Deficit Psy/Mental Status: Alert, Normal Affect, Normal Mood #1 Interpretation EKG Date: 11/02/20 Time: 09:42 Rhythm: A-Fib Rate (Beats/Min): 65 [place]: Normal P-Wave: Absent QRS: Other (mild intraventicular conduction delay) ST-T: Other (minimal ST depresssion noted lateral ventricular leads) QT: Normal - Patient Data Lab Results Last 24 hrs: Laboratory Results - last 24 hr 11/01/20 11/02/20 11/02/20 Range/Units 07:30 07:38 07:38 WBC (4.0-10.2) K/uL RBC (4.33-5.41) M/uL Hgb (13.1-16.8) g/dL Hct (39.0-49.0) % MCV (84.0-98.0) fL MCH (28.2-33.3) pg MCHC (31.7-36.0) g/dL RDW (11.2-14.1) % Plt Count (150-350) K/uL Neut % (Auto) (45.0-80.0) % Lymph % (Auto) (10.0-50.0) % [place] % (Auto) (2.0-14.0) % Eos % (Auto) (0.0-5.0) % Baso % (Auto) (0.0-2.0) % Neut # (Auto) (1.40-7.00) K/uL Lymph # (Auto) (0.50-3.50) K/uL [place] # (Auto) (0.00-1.00) K/uL Eos # (Auto) (0.00-0.50) K/uL Baso # (Auto) (0.00-0.20) K/uL Sodium 143 (136-145) mmol/L Potassium 4.2 (3.5-5.1) mmol/L Chloride 104 (98-107) mmol/L Carbon Dioxide 35.1 H (21.0-32.0) mmol/L BUN 65 H (7-18) mg/dL Creatinine 1.47 H (0.51-1.17) mg/dL Est Cr Clr Drug Dosing 47.56 mL/min Estimated GFR (MDRD) 46 mL/min Glucose 121 H (70-99) mg/dL Hemoglobin A1c (4.3-5.7) % Calcium 9.7 (8.5-10.1) mg/dL Iron 27 L (50-175) ug/dL TIBC 387 (250-450) ug/dL % Saturation 6.41166 Ferritin 55 (8-388) ng/mL Total Bilirubin 0.5 (0.2-1.0) mg/dL AST 21 (15-37) U/L ALT 21 (12-78) U/L Alkaline Phosphatase 77 (46-116) IU/L Creatine Kinase 38 (26-308) U/L Creatine Kinase Index 3.2 H (0.0-2.5) % CK-MB (CK-2) 1.20 (0.00-3.60) ng/mL Troponin I 0.019 (0.000-0.056) ng/mL NT-Pro-B Natriuret Pep 647 H (0-125) pg/mL Total Protein 7.8 (6.4-8.2) g/dL Albumin 3.7 (3.4-5.0) g/dL Triglycerides 135 (30-150) mg/dL Cholesterol 222 H (100-200) mg/dL LDL Cholesterol, Calc 159 H (0-100) mg/dL HDL Cholesterol 36 L (40-60) mg/dL Vitamin B12 354 (193-986) pg/mL Folate 23.7 (8.6-58.9) ng/mL SARS-CoV-2 RNA ([facility]) Negative (NEGATIVE) 11/02/20 11/02/20 Range/Units 07:38 07:38 WBC 8.6 (4.0-10.2) K/uL RBC 3.36 L (4.33-5.41) M/uL Hgb 10.0 L (13.1-16.8) g/dL Hct 33.2 L (39.0-49.0) % MCV 98.8 H (84.0-98.0) fL MCH 29.8 (28.2-33.3) pg MCHC 30.1 L (31.7-36.0) g/dL RDW 14.5 H (11.2-14.1) % Plt Count 231 (150-350) K/uL Neut % (Auto) 73.6 (45.0-80.0) % Lymph % (Auto) 10.1 (10.0-50.0) % [place] % (Auto) 12.9 (2.0-14.0) % Eos % (Auto) 3.2 (0.0-5.0) % Baso % (Auto) 0.2 (0.0-2.0) % Neut # (Auto) 6.34 (1.40-7.00) K/uL Lymph # (Auto) 0.87 (0.50-3.50) K/uL [place] # (Auto) 1.11 H (0.00-1.00) K/uL Eos # (Auto) 0.28 (0.00-0.50) K/uL Baso # (Auto) 0.02 (0.00-0.20) K/uL Sodium (136-145) mmol/L Potassium (3.5-5.1) mmol/L Chloride (98-107) mmol/L Carbon Dioxide (21.0-32.0) mmol/L BUN (7-18) mg/dL Creatinine (0.51-1.17) mg/dL Est Cr Clr Drug Dosing mL/min Estimated GFR (MDRD) mL/min Glucose (70-99) mg/dL Hemoglobin A1c 5.8 H (4.3-5.7) % Calcium (8.5-10.1) mg/dL Iron (50-175) ug/dL TIBC (250-450) ug/dL % Saturation Ferritin (8-388) ng/mL Total Bilirubin (0.2-1.0) mg/dL AST (15-37) U/L ALT (12-78) U/L Alkaline Phosphatase (46-116) IU/L Creatine Kinase (26-308) U/L Creatine Kinase Index (0.0-2.5) % CK-MB (CK-2) (0.00-3.60) ng/mL Troponin I (0.000-0.056) ng/mL NT-Pro-B Natriuret Pep (0-125) pg/mL Total Protein (6.4-8.2) g/dL Albumin (3.4-5.0) g/dL Triglycerides (30-150) mg/dL Cholesterol (100-200) mg/dL LDL Cholesterol, Calc (0-100) mg/dL HDL Cholesterol (40-60) mg/dL Vitamin B12 (193-986) pg/mL Folate (8.6-58.9) ng/mL SARS-CoV-2 RNA ([facility]) (NEGATIVE) Result Diagrams: 11/02/20 07:38 11/02/20 07:38 Sepsis Event Note - Evaluation Sepsis Screening Result: No Definite Risk - Focused Exam Vital Signs: Vital Signs Temp Pulse Resp BP BP Pulse Ox 11/02/20 14:00 36.6 C 75 19 133/77 97 11/02/20 07:43 124/55 L 11/02/20 07:35 36.1 C 68 20 124/55 L 96 - Problem List & Annotations (1) CHF (congestive heart failure) SNOMED Code(s): 22280253 Code(s): I50.9 - HEART FAILURE, UNSPECIFIED Status: Chronic Priority: High Current Visit: Yes Qualifiers: Heart failure type: combined systolic and diastolic Heart failure chronicity: acute on chronic Qualified Code(s): I50.43 - Acute on chronic combined systolic (congestive) and diastolic (congestive) heart failure Annotation/Comment:: SOB has improved today per patient. Mild to moderate CHF refractory to high-dose outpatient Bumex therapy. Initiated IV Lasix therapy on admission. Note borderline nonspecific chest pain earlier day of presentation but no true anginal complaints in ER. No chest pain at this time. Repeat EKG this morning showed mild ST depression lateral ventricular leads but troponins have been negative. Repeat EKG/Troponin in AM. Patient is already on warfarin. Cardiology consultation depending on his clinical course. (2) COPD (chronic obstructive pulmonary disease) SNOMED Code(s): 74490241 Code(s): J44.9 - CHRONIC OBSTRUCTIVE PULMONARY DISEASE, UNSPECIFIED Status: Acute Priority: High Current Visit: Yes Qualifiers: COPD type: COPD with acute lower respiratory infection Qualified Code(s): J44.0 - Chronic obstructive pulmonary disease with (acute) lower respiratory infection Annotation/Comment:: Known O2 dependent COPD with no recent fever or bronchitic type symptoms. (3) Atrial fibrillation SNOMED Code(s): 41012730 Code(s): I48.91 - UNSPECIFIED ATRIAL FIBRILLATION Status: Chronic Priority: Medium Current Visit: Yes Qualifiers: Atrial fibrillation type: longstanding persistent Qualified Code(s): I48.11 - Longstanding persistent atrial fibrillation Annotation/Comment:: INR therapeutic therapeutic at 2.7. (4) Osteoarthritis SNOMED Code(s): 839405249 Code(s): M19.90 - UNSPECIFIED OSTEOARTHRITIS, UNSPECIFIED SITE Status: Chronic Priority: Low Current Visit: Yes Qualifiers: Osteoarthritis location: multiple joints Osteoarthritis type: primary Qu alified Code(s): M89.49 - Other hypertrophic osteoarthropathy, multiple sites Annotation/Comment:: Chronic, unchanged acutely. (5) Anemia SNOMED Code(s): 952881426 Code(s): D64.9 - ANEMIA, UNSPECIFIED Status: Chronic Priority: Medium Current Visit: Yes Onset Date: ~11/08/19 Qualifiers: Anemia type: iron deficiency Iron deficiency anemia type: other iron deficiency Qualified Code(s): D50.8 - Other iron deficiency anemias Annotation/Comment:: No evidence of GI bleed. Blood studies suggest anemia of chronic disease pattern (6) Hypertension SNOMED Code(s): 92991341 Code(s): I10 - ESSENTIAL (PRIMARY) HYPERTENSION Status: Chronic Priority: Medium Current Visit: Yes Qualifiers: Hypertension type: essential hypertension Qualified Code(s): I10 - Essential (primary) hypertension Annotation/Comment:: Continue to observe closely. Note Lasix therapy. (7) Morbid obesity SNOMED Code(s): 315353410 Code(s): E66.01 - MORBID (SEVERE) OBESITY DUE TO EXCESS CALORIES Status: Chronic Priority: Medium Current Visit: Yes (8) Peptic reflux disease SNOMED Code(s): 456526562 Code(s): K21.9 - GASTRO-ESOPHAGEAL REFLUX DISEASE WITHOUT ESOPHAGITIS Status: Chronic Priority: Low Current Visit: Yes Annotation/Comment:: Despite anemia no evidence of acute GI bleed. High-dose IV Pepcid given as GI prophylaxis. (9) Renal insufficiency SNOMED Code(s): 103217334, 705639753 Code(s): N28.9 - DISORDER OF KIDNEY AND URETER, UNSPECIFIED Status: Chronic Priority: Medium Current Visit: Yes Annotation/Comment:: Continue to observe closely secondary to IV Lasix therapy (10) Hyperuricemia SNOMED Code(s): 84946093 Code(s): E79.0 - HYPERURICEMIA W/O SIGNS OF INFLAM ARTHRIT AND TOPHACEOUS DIS Status: Acute Priority: Low Current Visit: Yes Onset Date: 11/01/20 Annotation/Comment:: Newly diagnosed. Continue to observe closely secondary IV Lasix therapy no previous history of gout. - Problem List Review Problem List Initiated/Reviewed/Updated: Yes - My Orders Last 24 Hours: My Active Orders 11/02/20 18:00 Furosemide [Lasix] 40 mg IVPUSH BID - Assessment Assessment:: as above - Plan Plan:: as above. Continue diuresis. Consults for PT/OT/case management Wednesday to more fully evaluate patient's ability to perform ADLs/ambulate safely at home. There are concerns that he is starting to fail and has decreased mobility. Consider if patient can qualify for home health. Anticipate additional 2-3 days inpatient stay for the above concerns/treatment.
[2020-11-02] MEDS: Warfarin 5 MG Tab PO SCH (17:52)
[2020-11-02] MEDS: Betamethasone Dipropionate/Clotrimazole 0.05-1% Crm 15 GM Tube TOP SCH (23:26)
[2020-11-02] MEDS: Multivitamin Tab PO SCH (23:26)
[2020-11-03] MEDS: Furosemide 40 MG/4 ML VIAL IVPUSH SCH ×2 (07:20→17:31)
[2020-11-03] MEDS: Sodium Chloride 0.9% 10 ML Syringe FLUSH PRN ×3 (07:21→17:32)
[2020-11-03] MEDS: Beta-Carotene (Vitamin A) w/Vitamin C & E plus Minerals Tab PO SCH (07:22)
[2020-11-03] MEDS: Ferrous Sulfate 325 MG Tab PO SCH (07:22)
[2020-11-03] MEDS: Acetaminophen 500 MG Tab PO SCH ×3 (07:23→22:42)
[2020-11-03] MEDS: Losartan 50 MG Tab PO SCH (07:23)
[2020-11-03] MEDS: Hydrochlorothiazide 25 MG Tab PO SCH (07:24)
[2020-11-03] MEDS: Spironolactone 25 MG Tab PO SCH (07:24)
[2020-11-03] MEDS: Potassium Chloride 20 MEQ Tab.ER PO SCH ×2 (07:24→17:33)
[2020-11-03] MEDS: Betamethasone Dipropionate/Clotrimazole 0.05-1% Crm 15 GM Tube TOP SCH ×2 (07:27→20:33)
[2020-11-03] MEDS: VILANTEROL INH SCH (07:28)
[2020-11-03] MEDS: UMECLIDINIUM BRM INH SCH (07:28)
[2020-11-03] MEDS ORDERED: Lactulose Soln 10 GM/15 ML 30 ML UD Cup PO ONE ×2 (12:52→21:30)
[2020-11-03] MEDS ORDERED: Polyethylene Glycol 3350 Powder 17 GM Packet PO ONE (12:54)
--- NOTE | 2020-11-03 13:07 | PCM.PN ---
- General Info Date of Service: 11/03/20 Admission Dx/Problem (Free Text): CHF/SOB Subjective Update: Patient continues to feel less short of breath than when he presented but he is a bit disappointed that he has not lost any weight on the lasix. Has not had BM since admission. Functional Status: Reports: Pain Controlled, Tolerating Diet - Review of Systems General: Reports: Fatigue (generalized deconditioning/no acute changes). Denies: Fever HEENT: Denies: Dysphasia, Headaches, Post Nasal Drip, Sinus Congestion, Sore Throat, Rhinitis, Visual Changes Pulmonary: Reports: Shortness of Breath. Denies: Pleuritic Chest Pain, Cough, Sputum, Hemoptysis, Wheezing Cardiovascular: Reports: Dyspnea on Exertion, Edema. Denies: Chest Pain, Palpitations, Orthopnea, PND, Lightheadedness Gastrointestinal: Reports: Constipation. Denies: Abdominal Pain, Diarrhea, Difficulty Swallowing, Hematochezia, Melena, Nausea, Vomiting Genitourinary: Denies: Dysuria, Frequency, Burning, Pain, Urgency, Hematuria, F lank Pain Musculoskeletal: Reports: Other (No acute changes from) - Patient Data Vitals - Most Recent: Last Vital Signs Temp 36.1 C 11/03/20 11:52 Pulse 73 11/03/20 11:52 Resp 16 11/03/20 08:00 BP 119/64 11/03/20 11:52 Pulse Ox 98 11/03/20 11:52 Weight - Most Recent: 157.397 kg I&O - Last 24 Hours: Intake & Output 11/02/20 11/03/20 11/03/20 22:59 06:59 14:59 Intake Total 1260 300 720 Output Total 650 800 300 Balance 610 -500 420 Med Orders - Current: Current Medications Acetaminophen (Tylenol Extra Strength) 1,000 mg PO TID@0800,1800,2300 [facility] Last Admin: 11/03/20 07:23 Dose: 1,000 mg Documented by: Albuterol (Proventil Hfa) 0 gm INH Q4HR PRN PRN Reason: Shortness of Breath Betamethasone/Clotrimazole (Lotrisone) 0 gm TOP Q12H [facility] Last Admin: 11/03/20 07:27 Dose: 1 applic Documented by: Ferrous Sulfate (Ferrous Sulfate) 325 mg PO Q2D@08 [facility] Last Admin: 11/03/20 07:22 Dose: 325 mg Documented by: Furosemide (Lasix) 40 mg IVPUSH TID [facility] Hydrochlorothiazide (Hydrochlorothiazide) 25 mg PO DAILY [facility] Last Admin: 11/03/20 07:24 Dose: 25 mg Documented by: Lactulose (Cephulac) 30 gm PO ONETIME ONE Stop: 11/03/20 12:53 Lactulose (Cephulac) 30 gm PO ONETIME ONE Stop: 11/03/20 21:31 Losartan Potassium (Cozaar) 100 mg PO DAILY [facility] Last Admin: 11/03/20 07:23 Dose: 100 mg Documented by: Multivitamins/Minerals (Prosight) 1 tab PO DAILY [facility] Last Admin: 11/03/20 07:22 Dose: 1 tab Documented by: Multivitamins/Minerals/Vitamin C (Tab-A-Thom) 1 tab PO BEDTIME [facility] Last Admin: 11/02/20 23:26 Dose: 1 tab Documented by: Umeclidinium Brm/Vilanterol (Anoro Ellipta) 62.5-25 Mcg 1 puff INH DAILY [facility] Last Admin: 11/03/20 07:28 Dose: 1 puff Documented by: Polyethylene Glycol (Miralax) 17 gm PO ONETIME ONE Stop: 11/03/20 12:55 Potassium Chloride (Klor-Con M20) 20 meq PO BID [facility] Last Admin: 11/03/20 07:24 Dose: 20 meq Documented by: Sodium Chloride (Saline Flush) 10 ml FLUSH ASDIRECTED PRN PRN Reason: Keep Vein Open Last Admin: 11/03/20 07:21 Dose: 10 ml Documented by: Sodium Chloride (Saline Flush) 10 ml FLUSH Q12HR PRN PRN Reason: Keep Vein Open Last Admin: 11/02/20 03:54 Dose: 10 ml Documented by: Spironolactone (Aldactone) 25 mg PO DAILY [facility] Last Admin: 11/03/20 07:24 Dose: 25 mg Documented by: Temazepam (Restoril) 15 mg PO BEDTIME PRN PRN Reason: Insomnia Warfarin Sodium (Coumadin) 5 mg PO SUTUTHSA@18 [facility] Last Admin: 11/02/20 17:52 Dose: 5 mg Documented by: Warfarin Sodium (Coumadin) 7 mg PO MOWEFR@18 [facility] Last Admin: 11/01/20 19:10 Dose: 7 mg Documented by: Discontinued Medications Acetaminophen (Tylenol Extra Strength) 1,000 mg PO TID [facility] Last Admin: 11/01/20 19:09 Dose: 1,000 mg Documented by: Betamethasone/Clotrimazole (Lotrisone) 0 gm TOP BID [facility] Last Admin: 11/02/20 07:42 Dose: 1 applic Documented by: Famotidine (Pepcid) 40 mg IVPUSH ONETIME ONE Stop: 11/01/20 15:19 Last Admin: 11/01/20 15:33 Dose: 40 mg Documented by: Furosemide (Lasix) 40 mg IVPUSH Q8H [facility] Last Admin: 11/02/20 10:10 Dose: 40 mg Documented by: Furosemide (Lasix) 40 mg IVPUSH BID [facility] Last Admin: 11/03/20 07:20 Dose: 40 mg Documented by: - Exam Quality Assessment: Supplemental Oxygen, DVT Prophylaxis General: Alert, Oriented, Cooperative HEENT: Pupils Equal, Pupils Reactive, EOMI, Mucous Membr. Moist/[place]: Supple Lungs: Clear to Auscultation, Normal Respiratory Effort, Other (diminished throughout rodriguez). No: Crackles, Rales, Rhonchi, Rub, Stridor, Wheezing Cardiovascular: Irregular Rhythm GI/Abdominal Exam: Soft, Non-Tender, Other (morbidly obese) (Male) Exam: Deferred Back Exam: No: CVA Tenderness (L), CVA Tenderness (R), Muscle Spasm Extremities: Non-Tender, Normal Capillary Refill, Pedal Edema, Other (generalized edema noted) Skin: Warm, Dry Neurological: No New Focal Deficit Psy/Mental Status: Alert, Normal Affect, Normal Mood #1 Interpretation EKG Date: 11/03/20 Time: 13:52 Rhythm: A-Fib Rate (Beats/Min): 59 [place]: Normal P-Wave: Absent QRS: Normal ST-T: Normal QT: Normal Comparison: Other: (very minimal depressed appearance of ST segment noted yesterday in lateral leads is not present in today's EKG) - Patient Data Result Diagrams: 11/02/20 07:38 11/02/20 07:38 Sepsis Event Note - Evaluation Sepsis Screening Result: No Definite Risk - Focused Exam Vital Signs: Vital Signs Temp Pulse Resp BP BP BP Pulse Ox 11/03/20 11:52 36.1 C 73 119/64 98 11/03/20 08:00 36.3 C 72 16 132/55 L 95 11/03/20 07:23 132/55 L 11/03/20 03:43 36.1 C 62 14 108/54 L 90 L - Problem List & Annotations (1) CHF (congestive heart failure) SNOMED Code(s): 19618392 Code(s): I50.9 - HEART FAILURE, UNSPECIFIED Status: Chronic Priority: High Current Visit: Yes Qualifiers: Heart failure type: combined systolic and diastolic Heart failure chronicity: acute on chronic Qualified Code(s): I50.43 - Acute on chronic combined systolic (congestive) and diastolic (congestive) heart failure Annotation/Comment:: SOB has improved today per patient. Mild to moderate CHF refractory to high-dose outpatient Bumex therapy. Suspect a portion of patient's complaint is due to his morbid obesity/functional effect on lung volu me and deconditioning. Initiated IV Lasix therapy on admission. Note borderline nonspecific chest pain earlier day of presentation but no true anginal complaints in ER. No chest pain at this time. Repeat EKG yesterday morning showed mild ST depression lateral ventricular leads but troponins negati ve/patient without complaint. This is not present on today's EKG. Patient is already on warfarin. Cardiology consultation depending on his clinical course. (2) COPD (chronic obstructive pulmonary disease) SNOMED Code(s): 18350736 Code(s): J44.9 - CHRONIC OBSTRUCTIVE PULMONARY DISEASE, UNSPECIFIED Status: Acute Priority: High Current Visit: Yes Qualifiers: COPD type: COPD with acute lower respiratory infection Qualified Code(s): J44.0 - Chronic obstructive pulmonary disease with (acute) lower respiratory infection Annotation/Comment:: Known O2 dependent COPD with no recent fever or bronchitic type symptoms. (3) Constipation SNOMED Code(s): 43268598 Code(s): K59.00 - CONSTIPATION, UNSPECIFIED Status: Acute Priority: Medium Current Visit: Yes Qualifiers: Constipation type: unspecified constipation type Qualified Code(s): K59.00 - Constipation, unspecified Annotation/Comment:: No bowel movement since admission. Will give Miralax and lactulose to promote bowel movement today. No complaint of abdominal pain/nause a/emesis. (4) Atrial fibrillation SNOMED Code(s): 25741589 Code(s): I48.91 - UNSPECIFIED ATRIAL FIBRILLATION Status: Chronic Priority: Medium Current Visit: Yes Qualifiers: Atrial fibrillation type: longstanding persistent Qualified Code(s): I48.11 - Longstanding persistent atrial fibrillation Annotation/Comment:: INR therapeutic therapeutic at 2.7. (5) Osteoarthritis SNOMED Code(s): 218883025 Code(s): M19.90 - UNSPECIFIED OSTEOARTHRITIS, UNSPECIFIED SITE Status: Chronic Priority: Low Current Visit: Yes Qualifiers: Osteoarthritis location: multiple joints Osteoarthritis type: primary Qualified Code(s): M89.49 - Other hypertrophic osteoarthropathy, multiple sites Annotation/Comment:: Chronic, unchanged acutely. (6) Anemia SNOMED Code(s): 763888712 Code(s): D64.9 - ANEMIA, UNSPECIFIED Status: Chronic Priority: Medium Current Visit: Yes Onset Date: ~11/08/19 Qualifiers: Anemia type: iron deficiency Iron deficiency anemia type: other iron deficiency Qualified Code(s): D50.8 - Other iron deficiency anemias Annotation/Comment:: No evidence of GI bleed. Blood studies suggest anemia of chronic disease pattern (7) Hypertension SNOMED Code(s): 57976550 Code(s): I10 - ESSENTIAL (PRIMARY) HYPERTENSION Status: Chronic Priority: Medium Current Visit: Yes Qualifiers: Hypertension type: essential hypertension Qualified Code(s): I10 - Essential (primary) hypertension Annotation/Comment:: Continue to observe closely. Note Lasix therapy. (8) Morbid obesity SNOMED Code(s): 275520258 Code(s): E66.01 - MORBID (SEVERE) OBESITY DUE TO EXCESS CALORIES Status: Chronic Priority: Medium Current Visit: Yes (9) Peptic reflux disease SNOMED Code(s): 599643820 Code(s): K21.9 - GASTRO-ESOPHAGEAL REFLUX DISEASE WITHOUT ESOPHAGITIS S tatus: Chronic Priority: Low Current Visit: Yes Annotation/Comment:: Despite anemia no evidence of acute GI bleed. High-dose IV Pepcid given as GI prophylaxis. (10) Renal insufficiency SNOMED Code(s): 837616324, 139477797 Code(s): N28.9 - DISORDER OF KIDNEY AND URETER, UNSPECIFIED Status: Chronic Priority: Medium Current Visit: Yes Annotation/Comment:: Continue to observe closely secondary to IV Lasix therapy (11) Hyperuricemia SNOMED Code(s): 98248071 Code(s): E79.0 - HYPERURICEMIA W/O SIGNS OF INFLAM ARTHRIT AND TOPHACEOUS DIS Status: Acute Priority: Low Current Visit: Yes Onset Date: 11/01/20 Annotation/Comment:: Newly diagnosed. Continue to observe closely secondary IV Lasix therapy no previous history of gout. 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 [CONS] Routine OT Evaluation and Treatment [CONS] Routine PT Evaluation and Treatment [CONS] Routine 11/02/20 17:08 Incentive Breathing [RT Incentive Spirometry] [RC] Q2HWA 11/03/20 Breakfast Heart Healthy Diet [DIET] 11/03/20 12:54 polyethylene glycoL 3350 [MiraLAX] 17 gm PO ONETIME ONE 11/03/20 18:00 Furosemide [Lasix] 40 mg IVPUSH TID 11/03/20 21:30 Lactulose [Cephulac] 30 gm PO ONETIME ONE 11/04/20 05:11 COMPREHENSIVE METABOLIC PN,CMP [CHEM] AM INR,PT,PROTHROMBIN TIME [COAG] AM MAGNESIUM [CHEM] AM 11/04/20 05:15 CBC WITH AUTO DIFF [HEME] AM - Assessment Assessment:: as above - Plan Plan:: as above. Continue diuresis. No weight change noted but peripheral edema appears improved and patient subjectively feels improved. Suspect that a portion of his SOB complaint stems from further deconditioning and progression of his cardiac/lung disease and other concomitant conditions. Consults for PT/OT/case management Wednesday to more fully evaluate patient's ability to perform ADLs/ambulate safely at home. There are concerns that he is starting to fail and has decreased mobility. Consider if patient can qualify for home health. Anticipate additional 1-2 days inpatient stay for the above concerns/treatment.
[2020-11-03] MEDS ORDERED: Furosemide 40 MG/4 ML VIAL IVPUSH ONE (13:56)
[2020-11-03] MEDS: Warfarin 5 MG Tab PO SCH (17:34)
[2020-11-03] MEDS: Multivitamin Tab PO SCH ×2 (22:43→22:54)
[2020-11-04] MEDS: Hydrochlorothiazide 25 MG Tab PO SCH (07:21)
[2020-11-04] MEDS: Spironolactone 25 MG Tab PO SCH (07:21)
[2020-11-04] MEDS: Losartan 50 MG Tab PO SCH (07:21)
[2020-11-04] MEDS: Beta-Carotene (Vitamin A) w/Vitamin C & E plus Minerals Tab PO SCH (07:22)
[2020-11-04] MEDS: Acetaminophen 500 MG Tab PO SCH ×3 (07:22→22:57)
[2020-11-04] MEDS: UMECLIDINIUM BRM INH SCH (07:22)
[2020-11-04] MEDS: VILANTEROL INH SCH (07:22)
[2020-11-04] MEDS: Furosemide 40 MG/4 ML VIAL IVPUSH SCH ×3 (07:22→17:44)
[2020-11-04] MEDS: Potassium Chloride 20 MEQ Tab.ER PO SCH ×2 (07:22→17:42)
[2020-11-04] MEDS: Sodium Chloride 0.9% 10 ML Syringe FLUSH PRN ×3 (07:26→17:44)
--- NOTE | 2020-11-04 10:45 | PCM.PN ---
- General Info Date of Service: 11/04/20 Admission Dx/Problem (Free Text): 1. CHF 2. O2 dependent COPD Functional Status: Reports: Pain Controlled, Tolerating Diet, Ambulating (Limited with assist), Urinating (Incontinent occasionally), Incentive Spirometry. Denies: New Symptoms Pain Score: 0 - Review of Systems General: Reports: Weakness (Moderate with walker use required). Denies: Fever, Malaise, Chills, Night Sweats, Appetite (Adequate) HEENT: Reports: Glasses. Denies: Dysphasia, Ear Pain, Eye Pain, Headaches, Post Nasal Drip, Sinus Congestion, Sore Throat, Rhinitis, Visual Changes Pulmonary: Reports: Shortness of Breath, Cough. Denies: Pleuritic Chest Pain, Sputum, Hemoptysis, Wheezing Cardiovascular: Reports: Dyspnea on Exertion, Orthopnea, Edema (Refractory dependent). Denies: Chest Pain, Palpitations, Lightheadedness Gastrointestinal: Denies: Abdominal Pain, Constipation, Decreased Appetite, Diarrhea, Difficulty Swallowing, Flatus, Hematochezia, Melena, Nausea, Vomiting Genitourinary: Reports: Incontinence. Denies: Dysuria, Frequency, Burning, Pain, Urgency, Hematuria, Retention, Flank Pain Musculoskeletal: Reports: No Symptoms. Denies: Neck Pain, Shoulder Pain, Arm Pain, Back Pain, Leg Pain Skin: Reports: Bruising (Stable from Coumadin). Denies: Diaphoresis Neurological: Reports: Difficulty Walking (Walker use required), Weakness (As above). Denies: Gait Disturbance Psychiatric: Reports: No Symptoms. Denies: Confusion, Depression, Anxiety, Agitation, Cravings, Hallucinations - Patient Data Vitals - Most Recent: Last Vital Signs Temp 36.3 C 11/04/20 07:17 Pulse 66 11/04/20 07:17 Resp 18 11/04/20 07:17 BP 133/65 11/04/20 07:21 Pulse Ox 95 11/04/20 07:17 Vital Signs - 24 hr 11/03/20 11/03/20 11/03/20 11:52 17:26 20:00 Temperature [ 36.1 C 36.4 C 36.4 C Temporal] Pulse, 73 72 71 Peripheral [ Right Radial] Respiratory 22 H 18 Rate Blood Pressure Blood Pressure 119/64 107/47 L [Left Upper Arm ] Blood Pressure 129/56 L [Right Upper Arm] O2 Sat by Pulse 98 96 96 Oximetry 11/04/20 11/04/20 11/04/20 00:00 07:17 07:21 Temperature [ 36.2 C 36.3 C Temporal] Pulse, 84 66 Peripheral [ Right Radial] Respiratory 20 18 Rate Blood Pressure 133/65 Blood Pressure 117/56 L [Left Upper Arm ] Blood Pressure 133/65 [Right Upper Arm] O2 Sat by Pulse 95 95 Oximetry Weight - Most Recent: 157.714 kg I&O - Last 24 Hours: Intake & Output 11/03/20 11/04/20 11/04/20 22:59 06:59 14:59 Intake Total 420 300 360 Output Total 700 400 Balance -280 -100 360 Imaging Impressions - Last 24 Hours: 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 with average heart rate in the 60s with occasional multiform PVCs Lab Results Last 24 Hours: Laboratory Results - last 24 hr 11/04/20 11/04/20 11/04/20 Range/Units 06:58 06:58 06:58 WBC 8.6 (4.0-10.2) K/uL RBC 3.35 L (4.33-5.41) M/uL Hgb 9.9 L (13.1-16.8) g/dL Hct 32.9 L (39.0-49.0) % MCV 98.2 H (84.0-98.0) fL MCH 29.6 (28.2-33.3) pg MCHC 30.1 L (31.7-36.0) g/dL RDW 14.2 H (11.2-14.1) % Plt Count 244 (150-350) K/uL Neut % (Auto) 67.5 (45.0-80.0) % Lymph % (Auto) 15.9 (10.0-50.0) % [place] % (Auto) 13.0 (2.0-14.0) % Eos % (Auto) 3.5 (0.0-5.0) % Baso % (Auto) 0.1 (0.0-2.0) % Neut # (Auto) 5.84 (1.40-7.00) K/uL Lymph # (Auto) 1.37 (0.50-3.50) K/uL [place] # (Auto) 1.12 H (0.00-1.00) K/uL Eos # (Auto) 0.30 (0.00-0.50) K/uL Baso # (Auto) 0.01 (0.00-0.20) K/uL PT 27.4 H (9.5-12.0) SEC INR 2.8 Sodium 140 (136-145) mmol/L Potassium 4.7 (3.5-5.1) mmol/L Chloride 102 (98-107) mmol/L Carbon Dioxide 31.3 (21.0-32.0) mmol/L BUN 73 H (7-18) mg/dL Creatinine 1.55 H (0.51-1.17) mg/dL Est Cr Clr Drug Dosing 45.10 mL/min Estimated GFR (MDRD) 44 mL/min Glucose 116 H (70-99) mg/dL Calcium 9.6 (8.5-10.1) mg/dL Magnesium 2.6 H (1.8-2.4) mg/dL Total Bilirubin 0.5 (0.2-1.0) mg/dL AST 19 (15-37) U/L ALT 19 (12-78) U/L Alkaline Phosphatase 82 (46-116) IU/L Total Protein 7.9 (6.4-8.2) g/dL Albumin 3.7 (3.4-5.0) g/dL Abhijit Results Last 24 Hours: Microbiology 11/03/20 15:45 Stool Occult Blood (ABHIJIT) - Final Stool / Feces NEGATIVE OCCULT BLOOD REFERENCE RANGE: NEGATIVE Med Orders - Current: Current Medications Acetaminophen (Tylenol Extra Strength) 1,000 mg PO TID@0800,1800,2300 [facility] Last Admin: 11/04/20 07:22 Dose: 1,000 mg Documented by: Albuterol (Proventil Hfa) 0 gm INH Q4HR PRN PRN Reason: Shortness of Breath Ferrous Sulfate (Ferrous Sulfate) 325 mg PO Q2D@08 [facility] Last Admin: 11/03/20 07:22 Dose: 325 mg Documented by: Furosemide (Lasix) 40 mg IVPUSH TID [facility] Last Admin: 11/04/20 07:22 Dose: 40 mg Documented by: Hydrochlorothiazide (Hydrochlorothiazide) 25 mg PO DAILY [facility] Last Admin: 11/04/20 07:21 Dose: 25 mg Documented by: Losartan Potassium (Cozaar) 100 mg PO DAILY [facility] Last Admin: 11/04/20 07:21 Dose: 100 mg Documented by: Multivitamins/Minerals (Prosight) 1 tab PO DAILY [facility] Last Admin: 11/04/20 07:22 Dose: 1 tab Documented by: Multivitamins/Minerals/Vitamin C (Tab-A-Thom) 1 tab PO DAILY@2300 [facility] Last Admin: 11/03/20 22:43 Dose: 1 tab Documented by: Umeclidinium Brm/Vilanterol (Anoro Ellipta) 62.5-25 Mcg 1 puff INH DAILY [facility] Last Admin: 11/04/20 07:22 Dose: 1 puff Documented by: Potassium Chloride (Klor-Con M20) 20 meq PO BID [facility] Last Admin: 11/04/20 07:22 Dose: 20 meq Documented by: Sodium Chloride (Saline Flush) 10 ml FLUSH ASDIRECTED PRN PRN Reason: Keep Vein Open Last Admin: 11/04/20 07:26 Dose: 10 ml Documented by: Sodium Chloride (Saline Flush) 10 ml FLUSH Q12HR PRN PRN Reason: Keep Vein Open Last Admin: 11/02/20 03:54 Dose: 10 ml Documented by: Spironolactone (Aldactone) 25 mg PO DAILY [facility] Last Admin: 11/04/20 07:21 Dose: 25 mg Documented by: Temazepam (Restoril) 15 mg PO BEDTIME PRN PRN Reason: Insomnia Warfarin Sodium (Coumadin) 5 mg PO SUTUTHSA@18 [facility] Last Admin: 11/03/20 17:34 Dose: 5 mg Documented by: Warfarin Sodium (Coumadin) 7 mg PO MOWEFR@18 [facility] Last Admin: 11/01/20 19:10 Dose: 7 mg Documented by: Discontinued Medications Acetaminophen (Tylenol Extra Strength) 1,000 mg PO TID [facility] Last Admin: 11/01/20 19:09 Dose: 1,000 mg Documented by: Betamethasone/Clotrimazole (Lotrisone) 0 gm TOP BID [facility] Last Admin: 11/02/20 07:42 Dose: 1 applic Documented by: Betamethasone/Clotrimazole (Lotrisone) 0 gm TOP Q12H [facility] Last Admin: 11/03/20 20:33 Dose: Not Given Documented by: Famotidine (Pepcid) 40 mg IVPUSH ONETIME ONE Stop: 11/01/20 15:19 Last Admin: 11/01/20 15:33 Dose: 40 mg Documented by: Furosemide (Lasix) 40 mg IVPUSH Q8H [facility] Last Admin: 11/02/20 10:10 Dose: 40 mg Documented by: Furosemide (Lasix) 40 mg IVPUSH BID [facility] Last Admin: 11/03/20 07:20 Dose: 40 mg Documented by: Furosemide (Lasix) 40 mg IVPUSH NOW ONE Stop: 11/03/20 13:57 Last Admin: 11/03/20 14:15 Dose: 40 mg Documented by: Lactulose (Cephulac) 30 gm PO ONETIME ONE Stop: 11/03/20 12:53 Last Admin: 11/03/20 13:48 Dose: 30 gm Documented by: Lactulose (Cephulac) 30 gm PO ONETIME ONE Stop: 11/03/20 21:31 Last Admin: 11/03/20 20:34 Dose: Not Given Documented by: Multivitamins/Minerals/Vitamin C (Tab-A-Thom) 1 tab PO BEDTIME [facility] Last Admin: 11/03/20 22:54 Dose: Not Given Documented by: Polyethylene Glycol (Miralax) 17 gm PO ONETIME ONE Stop: 11/03/20 12:55 Last Admin: 11/03/20 13:49 Dose: 17 gm Documented by: - Exam Quality Assessment: Supplemental Oxygen (Baseline 3 L/min by nasal cannula), DVT Prophylaxis (Coumadin), Skin Breakdown (Buttocks rashchronic). No: Central Line/PICC, Urine Catheter, Restraints General: Alert, Oriented, Cooperative, Sedated HEENT: Pupils Equal, Pupils Reactive, Mucous Membr. Moist/[place], Other (Patient is wearing glasses. No vertigo or nystagmus.). No: Scleral Icterus Neck: No JVD, No Thyromegaly, Carotid Bruit (Mild bilateral carotid bruits versus transmitted heart sounds). No: Lymphadenopathy Lungs: Normal Respiratory Effort, Rales (Mild bilateral basilar). No: Rhonchi, Rub, Wheezing Cardiovascular: Regular Rate, Irregular Rhythm, Murmurs (Mild 1/6 STELLA of the aortic valve with additional mitral valve mechanical click). No: Gallops, Rubs GI/Abdominal Exam: Normal Bowel Sounds, Soft, Non-Tender, No Organomegaly, No Distention, No Abnormal Bruit, No Mass, Hernia (3 cm umbilical), Other (Morbidly obese). No: Guarding (Male) Exam: Deferred Back Exam: Normal Inspection, Full Range of Motion. No: CVA Tenderness (L), CVA Tenderness (R) Extremities: Normal Range of Motion, Non-Tender, Pedal Edema (Refractory lymphedema of the lower extremities particularly in the feet with Lisandro wrap dressings in place). No: Magdalena's Sign Peripheral Pulses: 0: Dorsalis Pedis (L), Dorsalis Pedis (R), 2+: Radial (L), Radial (R) Skin: Rash (Chronic buttocks rash with some blistering). No: Ecchymosis Wound/Incisions: Drainage (Buttocks- clear) Neurological: No New Focal Deficit, Other (Generalized weakness requiring walker use) Psy/Mental Status: Alert, Normal Affect, Normal Mood. No: Agitated, Hallucinations, Withdrawal Symptoms - Patient Data Lab Results Last 24 hrs: Laboratory Results - last 24 hr 11/04/20 11/04/20 11/04/20 Range/Units 06:58 06:58 06:58 WBC 8.6 (4.0-10.2) K/uL RBC 3.35 L (4.33-5.41) M/uL Hgb 9.9 L (13.1-16.8) g/dL Hct 32.9 L (39.0-49.0) % MCV 98.2 H (84.0-98.0) fL MCH 29.6 (28.2-33.3) pg MCHC 30.1 L (31.7-36.0) g/dL RDW 14.2 H (11.2-14.1) % Plt Count 244 (150-350) K/uL Neut % (Auto) 67.5 (45.0-80.0) % Lymph % (Auto) 15.9 (10.0-50.0) % [place] % (Auto) 13.0 (2.0-14.0) % Eos % (Auto) 3.5 (0.0-5.0) % Baso % (Auto) 0.1 (0.0-2.0) % Neut # (Auto) 5.84 (1.40-7.00) K/uL Lymph # (Auto) 1.37 (0.50-3.50) K/uL [place] # (Auto) 1.12 H (0.00-1.00) K/uL Eos # (Auto) 0.30 (0.00-0.50) K/uL Baso # (Auto) 0.01 (0.00-0.20) K/uL PT 27.4 H (9.5-12.0) SEC INR 2.8 Sodium 140 (136-145) mmol/L Potassium 4.7 (3.5-5.1) mmol/L Chloride 102 (98-107) mmol/L Carbon Dioxide 31.3 (21.0-32.0) mmol/L BUN 73 H (7-18) mg/dL Creatinine 1.55 H (0.51-1.17) mg/dL Est Cr Clr Drug Dosing 45.10 mL/min Estimated GFR (MDRD) 44 mL/min Glucose 116 H (70-99) mg/dL Calcium 9.6 (8.5-10.1) mg/dL Magnesium 2.6 H (1.8-2.4) mg/dL Total Bilirubin 0.5 (0.2-1.0) mg/dL AST 19 (15-37) U/L ALT 19 (12-78) U/L Alkaline Phosphatase 82 (46-116) IU/L Total Protein 7.9 (6.4-8.2) g/dL Albumin 3.7 (3.4-5.0) g/dL Result Diagrams: 11/04/20 06:58 11/04/20 06:58 Abhijit Results Last 24 hrs: Microbiology 11/03/20 15:45 Stool Occult Blood (ABHIJIT) - Final Stool / Feces NEGATIVE OCCULT BLOOD REFERENCE RANGE: NEGATIVE Sepsis Event Note - Evaluation Sepsis Screening Result: No Definite Risk - Focused Exam Vital Signs: Vital Signs Temp Pulse Resp BP BP BP Pulse Ox 11/04/20 07:21 133/65 11/04/20 07:17 36.3 C 66 18 133/65 95 11/04/20 00:00 36.2 C 84 20 117/56 L 95 - Problem List & Annotations (1) CHF (congestive heart failure) SNOMED Code(s): 54132986 Code(s): I50.9 - HEART FAILURE, UNSPECIFIED Status: Chronic Priority: High Current Visit: Yes Qualifiers: Heart failure type: combined systolic and diastolic Heart failure chronicity: acute on chronic Qualified Code(s): I50.43 - Acute on chronic combined systolic (congestive) and diastolic (congestive) heart failure Annotation/Comment:: SOB has improved today per patient, although his urine output is still somewhat suboptimal in spite of IV Lasix therapy. No further increase of his Lasix for now secondary to mild progressive renal insufficiency. Mild to moderate CHF refractory to high-dose outpatient Bumex therapy prior to admission. Suspect a portion of patient's complaint is due to his morbid obesity/functional effect on lung volume and deconditioning. Note borderline nonspecific chest pain earlier in the day of presentation but no true anginal complaints in ER. No chest pain at this time with negative work-up for acute IL. Patient is already on warfarin. Cardiology consultation depending on his clinical course. Attempt to improve compliance with leg elevation with Lisandro wraps currently in effect. Trial with low pressure pneumatic lower extremity compression dressings initiated on 11/05. (2) COPD (chronic obstructive pulmonary disease) SNOMED Code(s): 06222642 Code(s): J44.9 - CHRONIC OBSTRUCTIVE PULMONARY DISEASE, UNSPECIFIED Status: Acute Priority: High Current Visit: Yes Qualifiers: COPD type: COPD with acute lower respiratory infection Qualified Code(s): J44.0 - Chronic obstructive pulmonary disease with (acute) lower respiratory infection Annotation/Comment:: Known O2 dependent COPD with baseline O2 requirement of 3 L/min by nasal cannula on continuous basis. Patient also has sleep apnea and is using his home CPAP unit during this hospitalization. No recent fever or bronchitic type symptoms either prior to admission or during this hospitalization. (3) Atrial fibrillation SNOMED Code(s): 62995284 Code(s): I48.91 - UNSPECIFIED ATRIAL FIBRILLATION Status: Chronic Priority: Medium Current Visit: Yes Qualifiers: Atrial fibrillation type: longstanding persistent Qualified Code(s): I48.11 - Longstanding persistent atrial fibrillation Annotation/Comment:: INR therapeutic therapeutic throughout this hospitalization and 2.8 on 11/04. (4) Osteoarthritis SNOMED Code(s): 855382807 Code(s): M19.90 - UNSPECIFIED OSTEOARTHRITIS, UNSPECIFIED SITE Status: Chronic Priority: Low Current Visit: Yes Qualifiers: Osteoarthritis location: multiple joints Osteoarthritis type: primary Qualified Code(s): M89.49 - Other hypertrophic osteoarthropathy, multiple sites Annotation/Comment:: Chronic osteoarthritis with no evidence of recent fall or acute injury. Patient does have overall generalized decreased exercise tolerance and required walker use. PT and OT has been ordered. Care management consultation has also been ordered for evaluation for possible home health at discharge. Note that the patient feels that he can safely return to home with the patient's taking care of him at this time. (5) Peptic reflux disease SNOMED Code(s): 432648132 Code(s): K21.9 - GASTRO-ESOPHAGEAL REFLUX DISEASE WITHOUT ESOPHAGITIS Status: Chronic Priority: Low Current Visit: Yes Annotation/Comment:: Despite anemia no evidence of acute GI bleed. High-dose IV Pepcid given as GI prophylaxis. (6) Renal insufficiency SNOMED Code(s): 847356635, 936943365 Code(s): N28.9 - DISORDER OF KIDNEY AND URETER, UNSPECIFIED Status: Chronic Priority: Medium Current Visit: Yes Annotation/Comment:: Continue to obs erve closely secondary to IV Lasix therapy as above. (7) Hypertension SNOMED Code(s): 20145927 Code(s): I10 - ESSENTIAL (PRIMARY) HYPERTENSION Status: Chronic Priority: Medium Current Visit: Yes Qualifiers: Hypertension type: essential hypertension Qualified Code(s): I10 - Essential (primary) hypertension Annotation/Comment:: Continue to observe closely. Note Lasix therapy as above with overall good control during this hospitalization. (8) Hyperuricemia SNOMED Code(s): 32917638 Code(s): E79.0 - HYPERURICEMIA W/O SIGNS OF INFLAM ARTHRIT AND TOPHACEOUS DIS Status: Acute Priority: Low Current Visit: Yes Onset Date: 11/01/20 Annotation/Comment:: Newly diagnosed. Continue to observe closely secondary IV Lasix therapy with no previous history of gout. (9) Anemia SNOMED Code(s): 974053589 Code(s): D64.9 - ANEMIA, UNSPECIFIED Status: Chronic Priority: Medium Current Visit: Yes Onset Date: ~11/08/19 Qualifiers: Anemia type: iron deficiency Iron deficiency anemia type: other iron deficiency Qualified Code(s): D50.8 - Other iron deficiency anemias Annotation/Comment:: No evidence of GI bleed. Blood studies suggest anemia of chronic disease pattern (10) Tinea SNOMED Code(s): 68592739 Code(s): B35.9 - DERMATOPHYTOSIS, UNSPECIFIED Status: Chronic Priority: Medium Current Visit: Yes Annotation/Comment:: Moderate tinea in his buttocks region. He has been treating this with OTC hydrocortisone and aloe cream at home. Initiate trial of Lotrimin AF on 11/04. - Problem List Review Problem List Initiated/Reviewed/Updated: Yes - My Orders Last 24 Hours: My Active Orders 11/03/20 15:45 H PYLORI STOOL ANTIGEN [MREF] ONETIME 11/03/20 23:00 Multivitamins [Tab-A-Thom] 1 tab PO DAILY@2300 11/04/20 09:53 Antiembolic Devices [RC] PER UNIT ROUTINE Intermittent Pneumatic Compress Device [Sequential Compression Device] [OM.PC] Routine 11/04/20 09:54 Communication Order [RC] ROUTINE - Assessment Assessment:: as above. - Plan Plan:: as above. The patient will require about 2-3 days of inpatient/acute care secondary to multiple health problems as above. Note possible extended hospitalization may be required secondary to refractory CHF, etc. as above.
[2020-11-04] MEDS ORDERED: Clotrimazole 1% Crm 30 GM Tube TOP SCH (11:15)
[2020-11-04] MEDS: Warfarin 2 MG Tab PO SCH (17:41)
[2020-11-04] MEDS: Betamethasone Dipropionate/Clotrimazole 0.05-1% Crm 15 GM Tube TOP SCH (17:44)
[2020-11-04] MEDS: Multivitamin Tab PO SCH (22:57)
[2020-11-05] MEDS: Acetaminophen 500 MG Tab PO SCH ×3 (07:45→22:47)
[2020-11-05] MEDS: Losartan 50 MG Tab PO SCH (07:45)
[2020-11-05] MEDS: Spironolactone 25 MG Tab PO SCH (07:46)
[2020-11-05] MEDS: Beta-Carotene (Vitamin A) w/Vitamin C & E plus Minerals Tab PO SCH (07:46)
[2020-11-05] MEDS: Ferrous Sulfate 325 MG Tab PO SCH (07:46)
[2020-11-05] MEDS: Potassium Chloride 20 MEQ Tab.ER PO SCH ×3 (07:46→17:42)
[2020-11-05] MEDS: Sodium Chloride 0.9% 10 ML Syringe FLUSH PRN ×3 (07:47→17:43)
[2020-11-05] MEDS: Furosemide 40 MG/4 ML VIAL IVPUSH SCH ×3 (07:47→17:43)
[2020-11-05] MEDS: Betamethasone Dipropionate/Clotrimazole 0.05-1% Crm 15 GM Tube TOP SCH ×2 (07:50→17:42)
[2020-11-05] MEDS: UMECLIDINIUM BRM INH SCH (07:50)
[2020-11-05] MEDS: VILANTEROL INH SCH (07:50)
--- NOTE | 2020-11-05 09:02 | PCM.PN ---
- General Info Date of Service: 11/05/20 Admission Dx/Problem (Free Text): 1. CHF 2. O2 dependent COPD Functional Status: Reports: Pain Controlled, Tolerating Diet, Ambulating (With assist and walker use), Urinating. Denies: New Symptoms, Incentive Spirometry Pain Score: 0 - Review of Systems General: Reports: Weakness (Stable chronic). Denies: Fever, Fatigue, Malaise, Chills, Night Sweats, Appetite HEENT: Reports: Glasses. Denies: Contact Lenses, Dysphasia, Ear Pain, Eye Pain, Headaches, Post Nasal Drip, Sinus Congestion, Sore Throat, Rhinitis, Visual Changes Pulmonary: Reports: Shortness of Breath, Cough (Stable chronic), Sputum (Mild clear). Denies: Pleuritic Chest Pain, Hemoptysis, Wheezing Cardiovascular: Reports: Dyspnea on Exertion, Orthopnea (Stable chronic), Edema (Refractory). Denies: Chest Pain, Palpitations, Lightheadedness Gastrointestinal: Reports: Other (Normal large bowel movement yesterday). De nies: Abdominal Pain, Constipation, Decreased Appetite, Diarrhea, Flatus, Hematochezia, Melena, Nausea, Vomiting Genitourinary: Reports: Incontinence. Denies: Dysuria, Frequency, Burning, Urgency, Hematuria, Retention, Flank Pain Musculoskeletal: Reports: No Symptoms. Denies: Neck Pain, Shoulder Pain, Arm Pain, Back Pain, Leg Pain Skin: Reports: Rash (Moderate and buttocks and posterior scrotal region). Denies: Diaphoresis, Bruising, Pruritis Neurological: Reports: Difficulty Walking (As above), Weakness (As above). Denies: Confusion, Dizziness, Headache, Syncope Psychiatric: Reports: No Symptoms. Denies: Confusion, Depression, Anxiety, Agitation, Cravings, Hallucinations - Patient Data Vitals - Most Recent: Last Vital Signs Temp 36.8 C 11/05/20 02:00 Pulse 75 11/05/20 02:00 Resp 20 11/05/20 02:00 BP 137/60 11/05/20 07:45 Pulse Ox 97 11/05/20 02:00 Vital Signs - 24 hr 11/04/20 11/04/20 11/05/20 14:00 20:00 02:00 Temperature [ 36.6 C 36.5 C 36.8 C Temporal] Pulse, 75 Peripheral [ Left Pulse Oximetry] Pulse, 56 L 77 Peripheral [ Right Radial] Respiratory 20 19 20 Rate Blood Pressure Blood Pressure 134/57 L 140/70 [Right Lower Arm] Blood Pressure 133/52 L [Right Upper Arm] O2 Sat by Pulse 97 96 97 Oximetry 11/05/20 07:45 Temperature [ Temporal] Pulse, Peripheral [ Left Pulse Oximetry] Pulse, Peripheral [ Right Radial] Respiratory Rate Blood Pressure 137/60 Blood Pressure [Right Lower Arm] Blood Pressure [Right Upper Arm] O2 Sat by Pulse Oximetry Weight - Most Recent: 157.714 kg I&O - Last 24 Hours: Intake & Output 11/04/20 11/05/20 11/05/20 22:59 06:59 14:59 Intake Total 360 350 Output Total 500 600 Balance -140 -250 Imaging Impressions - Last 24 Hours: monitoring manager shows atrial fibrillation with average heart rate in the 60s to 80s with occasional mostly uniform PVCs with additional short 34 beat runs Lab Results Last 24 Hours: None Abhijit Results Last 24 Hours: Microbiology 11/04/20 18:58 Gram Stain - Final Buttock, Unspecified Culture and sensitivity for wound culture from the buttocks is pending. H. pylori stool antigen is negative Med Orders - Current: Current Medications Acetaminophen (Tylenol Extra Strength) 1,000 mg PO TID@0800,1800,2300 [facility] Last Admin: 11/05/20 07:45 Dose: 1,000 mg Documented by: Albuterol (Proventil Hfa) 0 gm INH Q4HR PRN PRN Reason: Shortness of Breath Betamethasone/Clotrimazole (Lotrisone) 0 gm TOP BID [facility] Last Admin: 11/05/20 07:50 Dose: 1 applic Documented by: Ferrous Sulfate (Ferrous Sulfate) 325 mg PO Q2D@08 [facility] Last Admin: 11/05/20 07:46 Dose: 325 mg Documented by: Furosemide (Lasix) 40 mg IVPUSH TID [facility] Last Admin: 11/05/20 07:47 Dose: 40 mg Documented by: Losartan Potassium (Cozaar) 100 mg PO DAILY [facility] Last Admin: 11/05/20 07:45 Dose: 100 mg Documented by: Multivitamins/Minerals (Prosight) 1 tab PO DAILY [facility] Last Admin: 11/05/20 07:46 Dose: 1 tab Documented by: Multivitamins/Minerals/Vitamin C (Tab-A-Thom) 1 tab PO DAILY@2300 [facility] Last Admin: 11/04/20 22:57 Dose: 1 tab Documented by: Umeclidinium Brm/Vilanterol (Anoro Ellipta) 62.5-25 Mcg 1 puff INH DAILY [facility] Last Admin: 11/05/20 07:50 Dose: 1 puff Documented by: Potassium Chloride (Klor-Con M20) 20 meq PO BID [facility] Last Admin: 11/05/20 07:46 Dose: 20 meq Documented by: Sodium Chloride (Saline Flush) 10 ml FLUSH ASDIRECTED PRN PRN Reason: Keep Vein Open Last Admin: 11/05/20 07:47 Dose: 10 ml Documented by: Sodium Chloride (Saline Flush) 10 ml FLUSH Q12HR PRN PRN Reason: Keep Vein Open Last Admin: 11/04/20 17:44 Dose: 10 ml Documented by: Spironolactone (Aldactone) 25 mg PO DAILY [facility] Last Admin: 11/05/20 07:46 Dose: 25 mg Documented by: Temazepam (Restoril) 15 mg PO BEDTIME PRN PRN Reason: Insomnia Warfarin Sodium (Coumadin) 5 mg PO SUTUTHSA@18 [facility] Last Admin: 11/03/20 17:34 Dose: 5 mg Documented by: Warfarin Sodium (Coumadin) 7 mg PO MOWEFR@18 [facility] Last Admin: 11/04/20 17:41 Dose: 7 mg Documented by: Discontinued Medications Acetaminophen (Tylenol Extra Strength) 1,000 mg PO TID [facility] Last Admin: 11/01/20 19:09 Dose: 1,000 mg Documented by: Betamethasone/Clotrimazole (Lotrisone) 0 gm TOP BID [facility] Last Admin: 11/02/20 07:42 Dose: 1 applic Documented by: Betamethasone/Clotrimazole (Lotrisone) 0 gm TOP Q12H [facility] Last Admin: 11/03/20 20:33 Dose: Not Given Documented by: Clotrimazole (Lotrimin Af 1% Crm) 0 gm TOP BID [facility] Last Admin: 11/04/20 14:51 Dose: Not Given Documented by: Famotidine (Pepcid) 40 mg IVPUSH ONETIME ONE Stop: 11/01/20 15:19 Last Admin: 11/01/20 15:33 Dose: 40 mg Documented by: Furosemide (Lasix) 40 mg IVPUSH Q8H [facility] Last Admin: 11/02/20 10:10 Dose: 40 mg Documented by: Furosemide (Lasix) 40 mg IVPUSH BID [facility] Last Admin: 11/03/20 07:20 Dose: 40 mg Documented by: Furosemide (Lasix) 40 mg IVPUSH NOW ONE Stop: 11/03/20 13:57 Last Admin: 11/03/20 14:15 Dose: 40 mg Documented by: Hydrochlorothiazide (Hydrochlorothiazide) 25 mg PO DAILY [facility] Last Admin: 11/04/20 07:21 Dose: 25 mg Documented by: Lactulose (Cephulac) 30 gm PO ONETIME ONE Stop: 11/03/20 12:53 Last Admin: 11/03/20 13:48 Dose: 30 gm Documented by: Lactulose (Cephulac) 30 gm PO ONETIME ONE Stop: 11/03/20 21:31 Last Admin: 11/03/20 20:34 Dose: Not Given Documented by: Losartan Potassium (Cozaar) 100 mg PO DAILY [facility] Last Admin: 11/04/20 07:21 Dose: 100 mg Documented by: Multivitamins/Minerals/Vitamin C (Tab-A-Thom) 1 tab PO BEDTIME [facility] Last Admin: 11/03/20 22:54 Dose: Not Given Documented by: Polyethylene Glycol (Miralax) 17 gm PO ONETIME ONE Stop: 11/03/20 12:55 Last Admin: 11/03/20 13:49 Dose: 17 gm Documented by: - Exam Quality Assessment: Supplemental Oxygen (Baseline 3 L/min by nasal cannula), DVT Prophylaxis (Coumadin), Skin Breakdown (Stable in buttocks and scrotal region). No: Central Line/PICC, Urine Catheter, Restraints General: Oriented, Cooperative, No Acute Distress HEENT: Pupils Equal, Pupils Reactive, EOMI, Mucous Membr. Moist/[place], Other (Patient is wearing glasses). No: Scleral Icterus Neck: Supple, Trachea Midline, No JVD, No Thyromegaly, Carotid Bruit (Stable mild bilateral carotid bruits versus transmitted heart sounds). No: Lymphadenopathy Lungs: Normal Respiratory Effort, Rales (Mild bilateral basilar). No: Rhonchi, Rub, Wheezing Cardiovascular: Regular Rate, Irregular Rhythm, Murmurs (1/6 STELLA of the aortic valve with additional mitral valve mechanical click). No: Gallops, Rubs GI/Abdominal Exam: Normal Bowel Sounds, Soft, Non-Tender, No Organomegaly, No Distention, No Abnormal Bruit, No Mass, Hernia (3 cm nonincarcerated umbilical hernia), Other (Obese). No: Guarding (Male) Exam: Deferred, Other Back Exam: Full Range of Motion, Other (Mild kyphosis). No: CVA Tenderness (L), CVA Tenderness (R), Muscle Spasm, Paraspinal Tenderness, Vertebral Tenderness Extremities: Normal Range of Motion, Non-Tender, Normal Capillary Refill, Pedal Edema (Persistent moderate lymphedema of the lower extremities mostly in the feet with compression Lisandro wraps in place). No: Magdalena's Sign Peripheral Pulses: 1+: Dorsalis Pedis (L), Dorsalis Pedis (R), 2+: Radial (L), Radial (R) Skin: Rash (Mild erosions with some minimal bleeding and minimal erythema extending throughout the buttocks and posterior scrotal regions) Wound/Incisions: No Drainage, Erythema (Stable) Neurological: No New Focal Deficit, Other (Moderate generalized weakness requiring walker use) Psy/Mental Status: Alert, Normal Affect, Normal Mood. No: Agitated, Hallucinations, Withdrawal Symptoms - Patient Data Result Diagrams: 11/04/20 06:58 11/04/20 06:58 Abhijit Results Last 24 hrs: Microbiology 11/04/20 18:58 Gram Stain - Final Buttock, Unspecified Sepsis Event Note - Evaluation Sepsis Screening Result: No Definite Risk - Focused Exam Vital Signs: Vital Signs Temp Pulse Resp BP BP Pulse Ox 11/05/20 07:45 137/60 11/05/20 02:00 36.8 C 75 20 140/70 97 - Problem List & Annotations (1) CHF (congestive heart failure) SNOMED Code(s): 11817082 Code(s): I50.9 - HEART FAILURE, UNSPECIFIED Status: Chronic Priority: High Current Visit: Yes Qualifiers: Heart failure type: combined systolic and diastolic Heart failure chroni city: acute on chronic Qualified Code(s): I50.43 - Acute on chronic combined systolic (congestive) and diastolic (congestive) heart failure Annotation/Comment:: SOB has improved today per patient, although his urine output is still somewhat suboptimal in spite of IV Lasix therapy with only -390 cc in his eyes and nose during the last 24 hours. His Lasix therapy was not increased on 11/04 secondary to mild progressive renal insufficiency, however secondary to poor overall urine output his Lasix was increased to 60 mg IV 3 times daily starting at noon on 11/05. Continue to observe his renal function closely with blood work ordered for the morning. Note that the patient was not able to be treated with mechanical pneumatic compression device secondary to his large lower extremities with his compression dressings confirmed by me today during rounds. Mild to moderate CHF refractory to high-dose outpatient Bumex therapy prior to admission, although this dose will likely be resumed at time of discharge. Suspect a portion of patient's complaint is due to his morbid obesity/functional effect on lung volume and deconditioning. PT and OT has been ordered with patient not wishing to be transferred to a swing bed unit or [facility] at this time. Note extended hospitalization secondary to his refractory CHF, etc. Note of borderline chest pain earlier in the day of presentation but no true anginal complaints in ER. No chest pain at this time with negative work-up for acute [place]. Patient is already on warfarin. Cardiology consultation depending on his clinical course. Attempt to improve compliance with leg elevation with Lisandro wraps currently in effect. Recommend initiation of level 3 cardiac rehabilitation program at time of discharge. (2) COPD (chronic obstructive pulmonary disease) SNOMED Code(s): 02857521 Code(s): J44.9 - CHRONIC OBSTRUCTIVE PULMONARY DISEASE, UNSPECIFIED Status: Acute Priority: High Current Visit: Yes Qualifiers: COPD type: COPD with acute lower respiratory infection Qualified Code(s): J44.0 - Chronic obstructive pulmonary disease with (acute) lower respiratory infection Annotation/Comment:: Known O2 dependent COPD with baseline O2 requirement of 3 L/min by nasal cannula on continuous basis. Patient also has sleep apnea and is using his home CPAP unit during this hospitalization. No recent fever or bronchitic type symptoms either prior to admission or during this hospitalization. (3) Atrial fibrillation SNOMED Code(s): 57064091 Code(s): I48.91 - UNSPECIFIED ATRIAL FIBRILLATION Status: Chronic Priority: Medium Current Visit: Yes Qualifiers: Atrial fibrillation type: longstanding persistent Qualified Code(s): I48.11 - Longstanding persistent atrial fibrillation Annotation/Comment:: INR therapeutic therapeutic throughout this hospitalization and 2.8 on 11/04. (4) Osteoarthritis SNOMED Code(s): 814750025 Code(s): M19.90 - UNSPECIFIED OSTEOARTHRITIS, UNSPECIFIED SITE Status: Chronic Priority: Medium Current Visit: Yes Qualifiers: Osteoarthritis location: multiple joints Osteoarthritis type: primary Qualified Code(s): M89.49 - Other hypertrophic osteoarthropathy, multiple sites Annotation/Comment:: Chronic osteoarthritis with no evidence of recent fall or acute injury. Patient does have overall generalized decreased exercise to lerance and required walker use. PT and OT has been ordered. Care management consultation has also been ordered for evaluation for possible home health at discharge, which the patient and his now agreed to initiate at discharge. Note that the patient feels that he can safely return to home with the patient's taking care of him at this time. (5) Peptic reflux disease SNOMED Code(s): 054840311 Code(s): K21.9 - GASTRO-ESOPHAGEAL REFLUX DISEASE WITHOUT ESOPHAGITIS Status: Chronic Priority: Low Current Visit: Yes Annotation/Comment:: Despite anemia no evidence of acute GI bleed. High-dose IV Pepcid given as GI prophylaxis. (6) Renal insufficiency SNOMED Code(s): 507022858, 962748980 Code(s): N28.9 - DISORDER OF KIDNEY AND URETER, UNSPECIFIED Status: Chronic Priority: Medium Current Visit: Yes Annotation/Comment:: Continue to observe closely secondary to IV Lasix therapy as above. (7) Hypertension SNOMED Code(s): 74870705 Code(s): I10 - ESSENTIAL (PRIMARY) HYPERTENSION Status: Chronic Priority: Medium Current Visit: Yes Qualifiers: Hypertension type: essential hypertension Qualified Code(s): I10 - Essenti al (primary) hypertension Annotation/Comment:: Continue to observe closely. Note Lasix therapy as above with overall good control during this hospitalization. (8) Hyperuricemia SNOMED Code(s): 98152529 Code(s): E79.0 - HYPERURICEMIA W/O SIGNS OF INFLAM ARTHRIT AND TOPHACEOUS DIS Status: Acute Priority: Low Current Visit: Yes Onset Date: 11/01/20 Annotation/Comment:: Newly diagnosed. Continue to observe closely secondary IV Lasix therapy with no previous history of gout. (9) Anemia SNOMED Code(s): 593696619 Code(s): D64.9 - ANEMIA, UNSPECIFIED Status: Chronic Priority: Medium Current Visit: Yes Onset Date: ~11/08/19 Qualifiers: Anemia type: iron deficiency Iron deficiency anemia type: other iron deficiency Qualified Code(s): D50.8 - Other iron deficiency anemias Annotation/Comment:: No evidence of GI bleed. Blood studies suggest anemia of chronic disease pattern with additional iron deficiency with decreased iron level and normal ferritin level, vitamin B12 and folic acid levels on 11/02/2020. Continue to observe closely by regular provider. (10) Tinea SNOMED Code(s): 58786829 Code(s): B35.9 - DERMATOPHYTOSIS, UNSPECIFIED Status: Chronic Priority: Medium Current Visit: Yes Annotation/Comment:: Moderate tinea in his buttocks region. He has been treating this with OTC hydrocortisone and aloe cream at home. Initiate trial of Lotrimin AF on 11/04. (11) PVCs (premature ventricular contractions) SNOMED Code(s): 48172734 Code(s): I49.3 - VENTRICULAR PREMATURE DEPOLARIZATION Status: Chronic Priority: Medium Current Visit: Yes Annotation/Comment:: Returns somewhat increased frequency of his PVCs including short 34 beat runs. These are not symptomatic at this time. Continue medication adjustment with close observation after hospital discharge. Consider event monitor depending on his clinical co urse. - Problem List Review Problem List Initiated/Reviewed/Updated: Yes - My Orders Last 24 Hours: My Active Orders 11/04/20 09:53 Antiembolic Devices [RC] PER UNIT ROUTINE Intermittent Pneumatic Compress Device [Sequential Compression Device] [OM.PC] Routine 11/04/20 09:54 Communication Order [RC] ROUTINE 11/04/20 18:00 Betamethasone/Clotrimazole [Lotrisone] 0 gm TOP BID 11/04/20 18:58 CULTURE WOUND + SMEAR [RM] Routine 11/05/20 08:00 Losartan [Cozaar] 100 mg PO DAILY 11/06/20 05:11 EKG Documentation Completion [RC] ASDIRECTED Chest 2V [CR] Routine CBC WITH AUTO DIFF [HEME] Routine CK W CKMB [CHEM] Routine COMPREHENSIVE METABOLIC PN,CMP [CHEM] Routine INR,PT,PROTHROMBIN TIME [COAG] Routine MAGNESIUM [CHEM] Routine PRO B-TYPE NATRIUR PEPT,BNPPRO [CHEM] Routine TROPONIN I [CHEM] Routine URIC ACID [CHEM] Routine EKG 12 Lead [EK] Routine - Assessment Assessment:: as above. - Plan Plan:: as above. The patient will require about 1 additional day of inpatient/acute care secondary to multiple health problems as above. Note extended hospitalization required secondary to refractory CHF, etc. as above. He does not wish to have swing bed or half-way care as above. Likely hospital discharge tomorrow with digital experience manager physician assuming care. Schedule close follow-up by regular provider in 1 week including repeat blood work with initiation of cardiac rehabilitation program also advisable.
[2020-11-05] MEDS: Warfarin 5 MG Tab PO SCH (17:41)
[2020-11-05] MEDS: Multivitamin Tab PO SCH (22:47)
[2020-11-06] MEDS: Acetaminophen 500 MG Tab PO SCH (07:57)
[2020-11-06] MEDS: Potassium Chloride 20 MEQ Tab.ER PO SCH ×2 (07:58→11:59)
[2020-11-06] MEDS: Losartan 50 MG Tab PO SCH (07:59)
[2020-11-06] MEDS: Spironolactone 25 MG Tab PO SCH (07:59)
[2020-11-06] MEDS: Beta-Carotene (Vitamin A) w/Vitamin C & E plus Minerals Tab PO SCH (08:00)
[2020-11-06] MEDS: Betamethasone Dipropionate/Clotrimazole 0.05-1% Crm 15 GM Tube TOP SCH (08:00)
[2020-11-06] MEDS: Furosemide 40 MG/4 ML VIAL IVPUSH SCH ×2 (08:00→11:59)
[2020-11-06] MEDS ORDERED: Ferrous Sulfate 325 MG Tab PO SCH (08:00)
[2020-11-06] MEDS: VILANTEROL INH SCH (08:01)
[2020-11-06] MEDS: UMECLIDINIUM BRM INH SCH (08:01)
--- NOTE | 2020-11-06 13:26 | PCM.DCSUM1 ---
Discharge Summary - Hospital Course Brief History: Patient admitted for further evaluation and treatment of complaint of SOB. 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 - Discharge Data Discharge Date: 11/06/20 Discharge Disposition: Home, Self-Care 01 Condition: Good - Referral to Home Health Date of Face to Face Encounter: 11/06/20 Reason for Homebound Status: Morbid obesity/deconditioning/oxygen dependent/poor mobility Primary Care Physician: RAMEZ Corbett Skilled Need: Medications/ADLs/skin checks - Discharge Diagnosis/Problem(s) (1) CHF (congestive heart failure) SNOMED Code(s): 60366347 ICD Code: I50.9 - HEART FAILURE, UNSPECIFIED Status: Chronic Priority: High Current Visit: Yes Problem Details: SOB has improved overall since admission. His Lasix therapy was not increased on 11/04 secondary to mild progressive renal insufficiency, however secondary to poor overall urine output his Lasix was increased to 60 mg IV 3 times but no significant change in output observed. No weight change observed. Chest xray overall unchanged, showing cardiomegaly, mild interstitial lung edema and mild CHF. Note that the patient w as not able to be treated with mechanical pneumatic compression device secondary to his large lower extremities with his compression dressings confirmed by me today during rounds. Mild to moderate CHF refractory to high-dose outpatient Bumex therapy prior to admission, although this dose will likely be resumed at time of discharge. Suspect a good portion of patient's complaint is due to his morbid obesity/functional effect on lung volume and deconditioning. PT and OT ordered and evaluated patient. OK to return home. Patient not wishing to be transferred to a [place] or [place] [facility] facility at this time. He admits that he has not made any effort at home to try to excercise/stay active. Note extended hospitalization secondary to his refractory CHF, etc. Patient is already on warfarin. Attempt to improve compliance with leg elevation with Lisandro wraps currently in effect. Recommend initiation of level 3 cardiac rehabilitation program at time of discharge. Qualifiers: Heart failure type: combined systolic and diastolic Heart failure chronicity: acute on chronic Qualified Code(s): I50.43 - Acute on chronic combined systolic (congestive) and diastolic (congestive) heart failure (2) COPD (chronic obstructive pulmonary disease) SNOMED Code(s): 67578419 ICD Code: J44.9 - CHRONIC OBSTRUCTIVE PULMONARY DISEASE, UNSPECIFIED Status: Acute Priority: High Current Visit: Yes Problem Details: Known O2 dependent COPD with baseline O2 requirement of 3 L/min by nasal cannula on continuous basis. Patient also has sleep apnea and is using his home CPAP unit during this hospitalization. No recent fever or bronchitic type symptoms either prior to admission or during this hospitalization. Qualifiers: COPD type: COPD with acute lower respiratory infection Qualified Code(s): J44.0 - Chronic obstructive pulmonary disease with (acute) lower respiratory infection (3) Physical deconditioning SNOMED Code(s): 43569193326519 ICD Code: R53.81 - OTHER MALAISE Status: Chronic Priority: High Current Visit: Yes (4) Constipation SNOMED Code(s): 17218429 ICD Code: K59.00 - CONSTIPATION, UNSPECIFIED Status: Acute Priority: Medium Current Visit: Yes Problem Details: Received Miralax and lactulose to promote bowel movement. No complaint of abdominal pain/nausea/emesis. Qualifiers: Constipation type: unspecified constipation type Qualified Code(s): K59.00 - Constipation, unspecified (5) Atrial fibrillation SNOMED Code(s): 41039006 ICD Code: I48.91 - UNSPECIFIED ATRIAL FIBRILLATION Status: Chronic Priority: Medium Current Visit: Yes Problem Details: INR therapeutic therapeutic throughout this hospitalization and 2.8 on 11/04. Qualifiers: Atrial fibrillation type: longstanding persistent Qualified Code(s): I48.11 - Longstanding persistent atrial fibrillation (6) Osteoarthritis SNOMED Code(s): 430225803 ICD Code: M19.90 - UNSPECIFIED OSTEOARTHRITIS, UNSPECIFIED SITE Status: Chronic Priority: Medium Current Visit: Yes Problem Details: Chronic osteoarthritis with no evidence of recent fall or acute injury. Patient does have overall generalized decreased exercise tolerance and required walker use. Home health planned. Note that the patient feels that he can safely return to home with the patient's taking care of him at this time. Qualifiers: Osteoarthritis location: multiple joints Osteoarthritis type: primary Qualified Code(s): M89.49 - Other hypertrophic osteoarthropathy, multiple sites (7) Anemia SNOMED Code(s): 828697146 ICD Code: D64.9 - ANEMIA, UNSPECIFIED Status: Chronic Priority: Medium Current Visit: Yes Onset Date: ~11/08/19 Problem Details: No evidence of GI bleed. Blood studies suggest anemia of chronic disease pattern with additional iron deficiency with decreased iron level and normal ferritin level, vitamin B12 and folic acid levels on 11/02/2020. Continue to observe closely by regular provider. Qualifiers: Anemia type: iron deficiency Iron deficiency anemia type: other iron deficiency Qualified Code(s): D50.8 - Other iron deficiency anemias (8) Hypertension SNOMED Code(s): 09917071 ICD Code: I10 - ESSENTIAL (PRIMARY) HYPERTENSION Status: Chronic Priority: Medium Current Visit: Yes Problem Details: Continue to observe closely. Note Lasix therapy as above with overall good control during this hospitalization. Qualifiers: Hypertension type: essential hypertension Qualified Code(s): I10 - Essential (primary) hypertension (9) Morbid obesity SNOMED Code(s): 507226838 ICD Code: E66.01 - MORBID (SEVERE) OBESITY DUE TO EXCESS CALORIES Status: Chronic Priority: Medium Current Visit: Yes Problem Details: Morbid obesity and generalized deconditioning. (10) Peptic reflux disease SNOMED Code(s): 694242707 ICD Code: K21.9 - GASTRO-ESOPHAGEAL REFLUX DISEASE WITHOUT ESOPHAGITIS Status: Chronic Priority: Low Current Visit: Yes Problem Details: Despite anemia no evidence of acute GI bleed. High-dose IV Pepcid given as GI prophylaxis. (11) Renal insufficiency SNOMED Code(s): 169207357, 161628994 ICD Code: N28.9 - DISORDER OF KIDNEY AND URETER, UNSPECIFIED Status: Chronic Priority: Medium Current Visit: Yes Problem Details: Follow up with PCP/overall stable during stay (12) Hyperuricemia SNOMED Code(s): 14177512 ICD Code: E79.0 - HYPERURICEMIA W/O SIGNS OF INFLAM ARTHRIT AND TOPHACEOUS DIS Status: Acute Priority: Low Current Visit: Yes Onset Date: 11/01/20 Problem Details: Newly diagnosed. - Patient Summary/Data Consults: Consultations 11/02/20 17:07 Consult to Case Management/Curriculum Assistant [CONS] Routine OT Evaluation and Treatment [CONS] Routine PT Evaluation and Treatment [CONS] Routine Hospital Course: Patient admitted. Lasix diuresis initiated. Chest pain protocol initiated. No evidence of acute infection/pneumonia noted. Serial troponin measurements negative. Minimal response to lasix despite dosage change. Patient however did feel subjectively better. Remained on his usual 3L O3 via [place] which is what he is on at home. Slightly prolonged stay due to having PT/OT work with patient and increasing lasix dose/evaluating response. Patient did admit that the shortness of breath complaint was not an acute problem, and has been an ongoing issue for many months. He also admits to avoiding exercising at home and doing whatever is minimal effort when it comes to ADLs. 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 We discussed this. Patient has plans to work on increasing daily activity, including using a pedal combination man that his children gave him. He says he prefers to put it up at higher level and use his arms to make it turn. He was encouraged to adopt this as a new habit, in addition to walking back and forth in his home daily (he has about 40feet of space to do so) while using his walker/increasing number of laps as tolerated. Cardiac rehab also suggested. To follow up with PCP. Recommend that he also check in with Cardiology. To return to ER as needed PRN sudden acute problems. - Patient Instructions Diet: Anti-Inflammatory (Anti-inflammatory/decreased carb. Target 125 total grams Carbohydrates daily) Fluid Restriction: 1500 mL Activity: Apply Ice Other/Special Instructions: Follow up with Cardiology first available appointment to see if they have other treatment options/ideas. Recommend Cardiac rehab to get you more active. Get active at home! Use your pedal gizmo DAILY! Walk some laps! Cut out processed foods and limit cereal/bread/pasta/baked goods for better changes. Home health with be stopping in to assist. Start the cream on the rash twice daily. Follow up with your primary provider within 10 days for recheck of rash and to see how you are doing. Return to ER if you have sudden worsening problems. - Discharge Plan *PRESCRIPTION DRUG MONITORING PROGRAM REVIEWED*: Not Applicable *COPY OF PRESCRIPTION DRUG MONITORING REPORT IN PATIENT KELLIE: Not Applicable Prescriptions/Med Rec: Betamethasone/Clotrimazole [Lotrisone] 0 gm TOP BID #1 tube Home Medications: Home Meds Albuterol [Ventolin HFA] 2 puff INH Q4HR PRN 09/29/18 [History] Nitroglycerin [Nitrostat] 0.4 mg SL ASDIRECTED PRN 09/29/18 [History] Potassium Chloride 20 meq PO DAILY 09/29/18 [History] Acetaminophen [Acetaminophen Extra Strength] 2 tab PO TID 11/06/19 [History] Lutein/Minerals/Vit A,C & E [Ocuvite] 1 tab PO DAILY 11/06/19 [History] Multivitamin-Min/Iron/FA/Vit K [Multi-Day Plus Minerals Tablet] 1 tab PO BEDTIME 11/06/19 [History] Umeclidinium Brm/Vilanterol Tr [Anoro Ellipta 62.5-25 MCG] 1 puff INH DAILY 11/06/19 [History] Bumetanide [Bumex] 2 mg PO DAILY@12 11/01/20 [History] Bumetanide [Bumex] 4 mg PO DAILY 11/01/20 [History] Ferrous Sulfate [Iron] 325 mg PO Q2D@08 11/01/20 [History] Hydrocortisone/Aloe Vera [Cortizone-10 1% Creme] 1 applic TP BID PRN 11/01/20 [History] Spironolactone [Aldactone] 25 mg PO DAILY 11/01/20 [History] Warfarin [Coumadin] 5 mg PO SUTUTHSA@18 11/01/20 [History] Warfarin [Coumadin] 7 mg PO MOWEFR@18 11/01/20 [History] Losartan [Cozaar] 100 mg PO DAILY 11/04/20 [History] Betamethasone/Clotrimazole [Lotrisone] 0 gm TOP BID #1 tube 11/06/20 [Rx] Oxygen Therapy Mode: Nasal Cannula Oxygen Flow Rate (L/min): 3 Forms: ED Department Discharge Referrals: Filipe Stover PA [Primary Care Provider] - - Discharge Summary/Plan Comment DC Time >30 min.: No - General Info Date of Service: 11/06/20 Admission Dx/Problem (Free Text: 1. Increased SOB 2. Deconditioning 3. CHF 4. O2 dependent COPD Subjective Update: Overall at baseline per self report Functional Status: Reports: Pain Controlled, Tolerating Diet, Ambulating, Urinating. Denies: New Symptoms - Review of Systems General: Reports: Other (generalized weakness/long standing). Denies: Fever, Malaise, Chills, Night Sweats HEENT: Reports: Glasses. Denies: Ear Pain, Eye Pain, Headaches, Post Nasal Drip, Sinus Congestion, Sore Throat, Rhinitis, Visual Changes Pulmonary: Reports: Shortness of Breath (chronic/no acute change recently). Denies: Pleuritic Chest Pain, Cough, Sputum, Hemoptysis, Wheezing Cardiovascular: Reports: Dyspnea on Exertion (chronic), Edema (chronic). Denies: Chest Pain, Palpitations, Lightheadedness Gastrointestinal: Reports: No Symptoms. Denies: Abdominal Pain, Constipation, D iarrhea, Difficulty Swallowing, Melena, Nausea, Vomiting Genitourinary: Reports: Incontinence. Denies: Burning, Pain, Urgency, Hematuria, Flank Pain Musculoskeletal: Reports: Other (no acute changes from baseline) Skin: Reports: Rash (buttocks area) Neurological: Reports: Difficulty Walking (chronic/no acute changes). Denies: Confusion, Headache, Numbness, Change in Speech Psychiatric: Reports: No Symptoms - Patient Data Vitals - Most Recent: Last Vital Signs Temp 37.0 C 11/06/20 08:00 Pulse 61 11/06/20 08:00 Resp 18 11/06/20 08:00 BP 154/64 H 11/06/20 08:00 Pulse Ox 95 11/06/20 08:00 Weight - Most Recent: 158.077 kg I&O - Last 24 hours: Intake & Output 11/05/20 11/06/20 11/06/20 22:59 06:59 14:59 Intake Total 480 3840 Output Total 800 400 400 Balance -320 -400 3440 Lab Results - Last 24 hrs: Laboratory Results - last 24 hr 11/06/20 11/06/20 11/06/20 Range/Units 06:57 06:57 06:57 WBC 7.9 (4.0-10.2) K/uL RBC 3.29 L (4.33-5.41) M/uL Hgb 9.7 L (13.1-16.8) g/dL Hct 32.4 L (39.0-49.0) % MCV 98.5 H (84.0-98.0) fL MCH 29.5 (28.2-33.3) pg MCHC 29.9 L (31.7-36.0) g/dL RDW 14.1 (11.2-14.1) % Plt Count 228 (150-350) K/uL Neut % (Auto) 67.1 (45.0-80.0) % Lymph % (Auto) 17.8 (10.0-50.0) % Johnson % (Auto) 11.9 (2.0-14.0) % Eos % (Auto) 2.9 (0.0-5.0) % Baso % (Auto) 0.3 (0.0-2.0) % Neut # (Auto) 5.31 (1.40-7.00) K/uL Lymph # (Auto) 1.41 (0.50-3.50) K/uL Johnson # (Auto) 0.94 (0.00-1.00) K/uL Eos # (Auto) 0.23 (0.00-0.50) K/uL Baso # (Auto) 0.02 (0.00-0.20) K/uL PT 26.3 H (9.5-12.0) SEC INR 2.7 Sodium 140 (136-145) mmol/L Potassium 4.6 (3.5-5.1) mmol/L Chloride 102 (98-107) mmol/L Carbon Dioxide 32.6 H (21.0-32.0) mmol/L BUN 75 H (7-18) mg/dL Creatinine 1.41 H (0.51-1.17) mg/dL Est Cr Clr Drug Dosing 49.58 mL/min Estimated GFR (MDRD) 49 mL/min Glucose 111 H (70-99) mg/dL Uric Acid 9.3 H (2.6-7.2) mg/dL Calcium 9.5 (8.5-10.1) mg/dL Magnesium 2.4 (1.8-2.4) mg/dL Total Bilirubin 0.4 (0.2-1.0) mg/dL AST 16 (15-37) U/L ALT 15 (12-78) U/L Alkaline Phosphatase 80 (46-116) IU/L Creatine Kinase 30 (26-308) U/L Creatine Kinase Index 2.3 (0.0-2.5) % CK-MB (CK-2) 0.70 (0.00-3.60) ng/mL Troponin I 0.027 (0.000-0.056) ng/mL NT-Pro-B Natriuret Pep 574 H (0-125) pg/mL Total Protein 7.9 (6.4-8.2) g/dL Albumin 3.6 (3.4-5.0) g/dL ASHISH Results - Last 24 hrs: Microbiology 11/04/20 18:58 Gram Stain - Final Buttock, Unspecified Wound Culture - Preliminary Gram Positive Cocci 11/03/20 15:45 Helicobacter pylori Antigen - Final Stool / Feces Med Orders - Current: Current Medications Acetaminophen (Acetaminophen 500 Mg Tab) 1,000 mg PO TID@0800,1800,2300 [facility] Last Admin: 11/06/20 07:57 Dose: 1,000 mg Documented by: Albuterol (Proventil Hfa) 0 gm INH Q4HR PRN PRN Reason: Shortness of Breath Betamethasone/Clotrimazole (Lotrisone) 0 gm TOP BID [facility] Last Admin: 11/06/20 08:00 Dose: 1 applic Documented by: Ferrous Sulfate (Ferrous Sulfate 325 Mg Tab) 325 mg PO DAILY [facility] Last Admin: 11/06/20 07:59 Dose: 325 mg Documented by: Furosemide (Furosemide 40 Mg/4 Ml Vial) 60 mg IVPUSH TID [facility] Last Admin: 11/06/20 11:59 Dose: 60 mg Documented by: Losartan Potassium (Losartan 50 Mg Tab) 100 mg PO DAILY [facility] Last Admin: 11/06/20 07:59 Dose: 100 mg Documented by: Multivitamins/Minerals (Beta-Carotene (Vitamin A) W/Vitamin C & E Plus Minerals Tab) 1 tab PO DAILY [facility] Last Admin: 11/06/20 08:00 Dose: 1 tab Documented by: Multivitamins/Minerals/Vitamin C (Tab-A-Thom) 1 tab PO DAILY@2300 [facility] Last Admin: 11/05/20 22:47 Dose: 1 tab Documented by: Umeclidinium Brm/Vilanterol (Anoro Ellipta) 62.5-25 Mcg 1 puff INH DAILY [facility] Last Admin: 11/06/20 08:01 Dose: 1 puff Documented by: Potassium Chloride (Potassium Chloride 20 Meq Tab.Er) 20 meq PO TID [facility] Last Admin: 11/06/20 11:59 Dose: 20 meq Documented by: Sodium Chloride (Saline Flush) 10 ml FLUSH ASDIRECTED PRN PRN Reason: Keep Vein Open Last Admin: 11/05/20 17:43 Dose: 10 ml Documented by: Sodium Chloride (Saline Flush) 10 ml FLUSH Q12HR PRN PRN Reason: Keep Vein Open Last Admin: 11/04/20 17:44 Dose: 10 ml Documented by: Spironolactone (Spironolactone 25 Mg Tab) 25 mg PO DAILY [facility] Last Admin: 11/06/20 07:59 Dose: 25 mg Documented by: Temazepam (Restoril) 15 mg PO BEDTIME PRN PRN Reason: Insomnia Warfarin Sodium (Coumadin) 5 mg PO SUTUTHSA@18 [facility] Last Admin: 11/05/20 17:41 Dose: 5 mg Documented by: Warfarin Sodium (Coumadin) 7 mg PO MOWEFR@18 [facility] Last Admin: 11/04/20 17:41 Dose: 7 mg Documented by: Discontinued Medications Acetaminophen (Tylenol Extra Strength) 1,000 mg PO TID [facility] Last Admin: 11/01/20 19:09 Dose: 1,000 mg Documented by: Betamethasone/Clotrimazole (Lotrisone) 0 gm TOP BID [facility] Last Admin: 11/02/20 07:42 Dose: 1 applic Documented by: Betamethasone/Clotrimazole (Lotrisone) 0 gm TOP Q12H [facility] Last Admin: 11/03/20 20:33 Dose: Not Given Documented by: Clotrimazole (Lotrimin Af 1% Crm) 0 gm TOP BID [facility] Last Admin: 11/04/20 14:51 Dose: Not Given Documented by: Famotidine (Pepcid) 40 mg IVPUSH ONETIME ONE Stop: 11/01/20 15:19 Last Admin: 11/01/20 15:33 Dose: 40 mg Documented by: Ferrous Sulfate (Ferrous Sulfate 325 Mg Tab) 325 mg PO Q2D@08 [facility] Last Admin: 11/05/20 07:46 Dose: 325 mg Documented by: Furosemide (Lasix) 40 mg IVPUSH Q8H [facility] Last Admin: 11/02/20 10:10 Dose: 40 mg Documented by: Furosemide (Lasix) 40 mg IVPUSH BID [facility] Last Admin: 11/03/20 07:20 Dose: 40 mg Documented by: Furosemide (Furosemide 40 Mg/4 Ml Vial) 40 mg IVPUSH TID [facility] Last Admin: 11/05/20 07:47 Dose: 40 mg Documented by: Furosemide (Lasix) 40 mg IVPUSH NOW ONE Stop: 11/03/20 13:57 Last Admin: 11/03/20 14:15 Dose: 40 mg Documented by: Hydrochlorothiazide (Hydrochlorothiazide) 25 mg PO DAILY [facility] Last Admin: 11/04/20 07:21 Dose: 25 mg Documented by: Lactulose (Cephulac) 30 gm PO ONETIME ONE Stop: 11/03/20 12:53 Last Admin: 11/03/20 13:48 Dose: 30 gm Documented by: Lactulose (Cephulac) 30 gm PO ONETIME ONE Stop: 11/03/20 21:31 Last Admin: 11/03/20 20:34 Dose: Not Given Documented by: Losartan Potassium (Cozaar) 100 mg PO DAILY [facility] Last Admin: 11/04/20 07:21 Dose: 100 mg Documented by: Multivitamins/Minerals/Vitamin C (Tab-A-Thom) 1 tab PO BEDTIME [facility] Last Admin: 11/03/20 22:54 Dose: Not Given Documented by: Polyethylene Glycol (Miralax) 17 gm PO ONETIME ONE Stop: 11/03/20 12:55 Last Admin: 11/03/20 13:49 Dose: 17 gm Documented by: Potassium Chloride (Potassium Chloride 20 Meq Tab.Er) 20 meq PO BID [facility] Last Admin: 11/05/20 07:46 Dose: 20 meq Documented by: - Exam Quality Assessment: Reports: Supplemental Oxygen, DVT Prophylaxis General: Reports: Alert, Oriented, Cooperative, No Acute Distress HEENT: Reports: Pupils Equal, Pupils Reactive, EOMI, Mucous Membr. Moist/[place] Neck: Reports: Supple Lungs: Reports: Clear to Auscultation, Normal Respiratory Effort. Denies: Crackles, Rales, Rhonchi, Rub, Stridor, Wheezing Cardiovascular: Reports: Irregular Rhythm GI/Abdominal Exam: Soft, Non-Tender, No Distention. No: Guarding, Rigid, Rebound, Tender (Male) Exam: Deferred Rectal (Males) Exam: Deferred Back Exam: Denies: Muscle Spasm, Paraspinal Tenderness, Vertebral Tenderness Extremities: Normal Capillary Refill, Pedal Edema. No: Increased Warmth, Mottled, Pallor Skin: Reports: Rash (buttocks area) Neurological: Reports: No New Focal Deficit Psy/Mental Status: Reports: Alert, Normal Affect, Normal Mood
[2020-11-06 16:13] VITALS: BP 119/50; PULSE 56
--- NOTE | 2020-11-07 08:44 | PCM.SN.2 ---
- Free Text/Narrative Note: Lab notes that patient growing MRSA from area of maceration on buttocks. Rx for Doxy sent for patient to his usual pharmacy. Nursing will call and inform him of results and to pick up attendant medication. He is to hold his multivitamin, eye vitamin, and iron while taking antibiotic. Get INR rechecked day 6 or 7 of treatment/follow up with PCP before end of treatment to be re-evaluated.
== END 2020-11-06 14:50 | disposition home or self-care (01) | DRG 291 ==
LOC: LL.ED 15:04 → LL.MS 17:30
PROVIDERS: ADMIT Family Medicine; ATTEND Family Medicine
DX: I11.0 Hypertensive heart disease with heart failure (principal); I13.0 Hypertensive heart and chronic kidney disease with heart failure and stage 1 through stage 4 chronic kidney disease, or unspecified chronic kidney disease; J44.1 Chronic obstructive pulmonary disease with (acute) exacerbation; I50.43 Acute on chronic combined systolic (congestive) and diastolic (congestive) heart failure; I48.11 Longstanding persistent atrial fibrillation; J44.9 Chronic obstructive pulmonary disease, unspecified; N28.9 Disorder of kidney and ureter, unspecified; R53.81 Other malaise; K59.00 Constipation, unspecified; M89.49 Other hypertrophic osteoarthropathy, multiple sites; D50.8 Other iron deficiency anemias; E66.01 Morbid (severe) obesity due to excess calories; K21.9 Gastro-esophageal reflux disease without esophagitis; E79.0 Hyperuricemia without signs of inflammatory arthritis and tophaceous disease; H54.7 Unspecified visual loss; H91.90 Unspecified hearing loss, unspecified ear; I25.10 Atherosclerotic heart disease of native coronary artery without angina pectoris; E78.00 Pure hypercholesterolemia, unspecified; Z20.822 Contact with and (suspected) exposure to COVID-19; E11.42 Type 2 diabetes mellitus with diabetic polyneuropathy; M54.9 Dorsalgia, unspecified; N18.9 Chronic kidney disease, unspecified; E88.09 Other disorders of plasma-protein metabolism, not elsewhere classified; B95.62 Methicillin resistant Staphylococcus aureus infection as the cause of diseases classified elsewhere; B35.9 Dermatophytosis, unspecified; I49.3 Ventricular premature depolarization; Z88.8 Allergy status to other drugs, medicaments and biological substances; Z88.1 Allergy status to other antibiotic agents; Z79.01 Long term (current) use of anticoagulants; Z79.899 Other long term (current) drug therapy; Z95.2 Presence of prosthetic heart valve; Z98.890 Other specified postprocedural states; Z87.891 Personal history of nicotine dependence; I25.2 Old myocardial infarction; Z86.73 Personal history of transient ischemic attack (TIA), and cerebral infarction without residual deficits; Z99.81 Dependence on supplemental oxygen
CPT/HCPCS: 36415; 71045; 71046; 80053; 80061; 82272; 82550; 82553; 82607; 82728; 82746; 83036; 83540; 83550; 83605; 83735; 83880; 84443; 84484; 84550; 85025; 85379; 85610; 85730; 87070; 87077; 87186; 87205; 87338; 87426; 93005; 93010; 94640; 94761; 96374; 97161-GP; 99223; 99232; 99238; 99285-25; A9270-GY; J1940; J3490; U0002

== ENCOUNTER 2020-11-11 14:00 | Emergency (ER) | payer MEDICARE, BC ==
[2020-11-11] MEDS ORDERED: Sodium Chloride 0.9% 10 ML Syringe FLUSH PRN (14:01)
[2020-11-11] MEDS ORDERED: Famotidine 20 MG/2 ML SDV IVPUSH ONE (14:01)
[2020-11-11] MEDS ORDERED: Pantoprazole 40 MG Vial IVPUSH ONE (14:01)
[2020-11-11] MEDS ORDERED: Lactated Ringers 1,000 ML IV ONE (14:01)
--- NOTE | 2020-11-11 14:01 | EDM.PDOC ---
ED HPI GENERAL MEDICAL PROBLEM - General Chief Complaint: Gastrointestinal Problem Stated Complaint: suspected GI bleed Time Seen by Provider: 11/11/20 14:01 Source of Information: Reports: Patient, EMS, EMS Notes Reviewed, Family (), Old Records ([facility] chart/EMR) History Limitations: Reports: No Limitations - History of Present Illness INITIAL COMMENTS - FREE TEXT/NARRATIVE: The patient was brought to the emergency room via ambulance with tool coordinator accompaniment with no treatment in route. Their telemetry did show some stable atrial fibrillation with borderline tachycardia but no other significant arrhythmia. Note that patient's O2 was increased to 6 L/min by nasal cannula secondary to some dyspnea at home with mild borderline hypotension non symptomatic in nature shortly upon their arrival in the ambulance bay by their verbal history. The patient states that he has had 45 dark melanotic stools moderate in nature since about 2 AM this morning with patient recently started on doxycycline secondary to MRSA in the buttocks region. He has been holding his multivitamin, iron supplement, and eye vitamin as previously directed by Dr. Sanchez, discharging physician, from her recent hospitalization in this facility between 11/01/2020 and 11/06/2020 with doxycycline started on an outpatient basis on 11/07/2020. He did complain of 4/10 nonspecific abdominal pain and cramping and nonspecific nausea earlier this morning but not currently. No recent history of heartburn, emesis, gross hematochezia, or any food intolerance, including fatty foods, etc.. The patient also denies any recent cough, wheezing, etc., although some mild dyspnea prior to arrival as above. Possible history of fever and chills earlier this morning, however temperature not measured with no recent medications taken for his above symptoms. Note that O2 saturations were not recorded by the family prior to increase of his oxygen at home as above. His abdominal pain had completely resolved by time of arrival to our facility. Onset: Today, Gradual (Not available at time of dictation) Onset Date: 11/11/20 Onset Time: 02:00 Duration: Getting Worse (Diarrhea/melena), Improving (Abdominal pain) Location: Reports: Abdomen. Denies: Head, Face, Neck, Chest, Back, Pelvis, Upper Extremity, Left, Upper Extremity, Right, Radiates to Quality: Reports: Ache, Same as Previous Episode Severity: Moderate Improves with: Reports: None Worsens with: Reports: None Context: Reports: Other (As above). Denies: Sick Contact, Trauma Associated Symptoms: Reports: Fever/Chills, Nausea/Vomiting (No emesis), Shortness of Breath, Weakness (Moderate stable generalized). Denies: Confusion, Chest Pain, Cough, Diaphoresis, Headaches, Loss of Appetite, Syncope Treatments HEART SPECIALIST: Reports: Oxygen, See EMS Report, Other (see below) (As above) - Related Data Allergies Allergy/AdvReac Type Severity Reaction Status Date / Time atorvastatin [From Lipitor] Allergy Bleeding Verified 11/11/20 14:02 celecoxib [From Celebrex] Allergy Bleeding Verified 11/11/20 14:02 Home Meds: Home Meds Albuterol [Ventolin HFA] 2 puff INH Q4HR PRN 09/29/18 [History] Nitroglycerin [Nitrostat] 0.4 mg SL ASDIRECTED PRN 09/29/18 [History] Potassium Chloride 20 meq PO DAILY 09/29/18 [History] Acetaminophen [Acetaminophen Extra Strength] 2 tab PO TID 11/06/19 [History] Lutein/Minerals/Vit A,C & E [Ocuvite] 1 tab PO DAILY 11/06/19 [History] Multivitamin-Min/Iron/FA/Vit K [Multi-Day Plus Minerals Tablet] 1 tab PO BEDTIME 11/06/19 [History] Umeclidinium Brm/Vilanterol Tr [Anoro Ellipta 62.5-25 MCG] 1 puff INH DAILY 11/06/19 [History] Bumetanide [Bumex] 2 mg PO DAILY@12 11/01/20 [History] Bumetanide [Bumex] 4 mg PO DAILY 11/01/20 [History] Ferrous Sulfate [Iron] 325 mg PO Q2D@08 11/01/20 [History] Hydrocortisone/Aloe Vera [Cortizone-10 1% Creme] 1 applic TP BID PRN 11/01/20 [History] Spironolactone [Aldactone] 25 mg PO DAILY 11/01/20 [History] Warfarin [Coumadin] 5 mg PO SUTUTHSA@18 11/01/20 [History] Warfarin [Coumadin] 7 mg PO MOWEFR@18 11/01/20 [History] Losartan [Cozaar] 100 mg PO DAILY 11/04/20 [History] Betamethasone/Clotrimazole [Lotrisone] 0 gm TOP BID #1 tube 11/06/20 [Rx] Doxycycline [Vibramycin] 100 mg PO DAILY #28 cap 11/07/20 [Rx] Past Medical History HEENT History: Reports: Hard of Hearing, Impaired Vision, Macular Degeneration, Other (See Below). Denies: Allergic Rhinitis, Cataract, Glaucoma, Otitis Media, Retinal Detachment Other HEENT History: Patient wears glasses. He does have beginnings of macular degeneration with no treatment to this point. Mild bilateral presbycusis with no current therapy. Recurrent epistaxis secondary to his warfarin therapy. Cardiovascular History: Reports: Afib, Arrhythmia, CAD, Cardiomyopathy, Heart Failure, Heart Murmur, Heart Valve Replacement, High Cholesterol, Hypertension, PVD, Other (See Below). Denies: Aneurysm, Blood Clots/VTE/DVT, ME, Pulmonary H ypertension, Syncope Other Cardiovascular History: Mild coronary artery disease with 50% mid circumflex coronary artery stenosis by recent heart catheterization as below. Moderate to severe cardiomegaly secondary to valvular disease as above with additional severe left atrial enlargement by echocardiogram as below. Peripheral vascular disease with secondary neuropathy as below. Significant aortic valve stenosis and mitral valve insufficiency requiring surgeries as below. Recurrent CHF with both systolic and additional grade 1 diastolic dysfunction. Chronic atrial fibrillation with warfarin therapy. PVCs and couplets. Severe chronic dependent edema/lymphedema. Respiratory History: Reports: Bronchitis, Recurrent, COPD, Intubation, Previous, Pneumonia, Recurrent, Sleep Apnea, Other (See Below). Denies: Asthma, Intubation, Difficult, PE, Pneumothorax, Pulmonary Fibrosis, TB Other Respiratory History: Patient is compliant with his CPAP. Gastrointestinal History: Reports: Colon Polyp, Diverticulosis, Gastritis, GERD, GI Bleed, Hemorrhoids, Hiatal Hernia, PUD, Other (See Below). Denies: Bowel Obstruction, Celiac Disease, Cholelithiasis, Chronic Constipation, Chronic Diarrhea, Fatty Liver, Fecal Incontinence, Hepatitis, Inflammatory Bowel Disease, Irritable Bowel Syndrome, Jaundice, Pancreatitis Other Gastrointestinal History: Severe upper GI bleed in 2001 requiring blood transfusion secondary to peptic ulcer from concomitant use of Coumadin and NSAI Ds. Unknown type of colonic polyps. Umbilical hernia. Genitourinary History: Reports: BPH, Chronic Renal Insuffiency, Diabetic Nephropathy, Prostate Disorder, Urinary Incontinence. Denies: Acute Renal Failure, Renal Calculus, STD, UTI, Recurrent Musculoskeletal History: Reports: Arthritis, Back Pain, Chronic, Fracture, Gout, Osteoarthritis, Other (See Below). Denies: Amputation, Neck Pain, Chronic, RA, SLE Other Musculoskeletal History: Right foot fracture requiring surgery in 1989. Neurological History: Reports: Neuropathy, Diabetic, Neuropathy, Peripheral, Other (See Below). Denies: Cerebral Aneurysms, Concussion, CVA, Headaches, Chronic, Head Trauma, Migraines, MS, Parkinson's, Seizure, TIA, Vertigo Other Neuro History: Generalized weakness requiring walker use. Peripheral neuropathy secondary to peripheral vascular disease. Psychiatric History: Reports: None. Denies: Abuse, Victim of, ADD, ADHD, Addiction, Alzheimers Disease, Anxiety, Dementia, Depression, Psych Hospitalization(s), Psychosis, PTSD, Suicide Attempt, Suicidal Ideation Endocrine/Metabolic History: Reports: Diabetes, Type II, Obesity/BMI 30+, Other (See Below). Denies: Diabetes, Gestational, Diabetes, Type I, Diabetes Mellitus, Type 3c, Hypothyroidism, IDDM Other Endocrine/Metabolic History: Borderline AODM currently diet controlled. Hypoalbuminemia. Hematologic History: Reports: Anemia, Blood Transfusion(s), Other (See Below) Other Hematologic History: Severe upper GI bleed in 2001 requiring blood transfusion as above. Immunologic History: Reports: None. Denies: AIDS, HIV, SLE Oncologic (Cancer) History: Reports: None. Denies: Basal Cell Carcinoma, Colon, Hodgkin's Lymphoma, Leukemia, Lung, Lymphoma, Malignant Melanoma, Non-Hodgkin's Lymphoma, Prostate, Squamous Cell Carcinoma Dermatologic History: Reports: Other (See Below). Denies: Eczema, Psoriasis, Venous Stasis Dermatitis Other Dermatologic History: MRSA cellulitis in the perirectal and scrotal region and October 2020 - Infectious Disease History Infectious Disease History: Reports: Chicken Pox, Influenza, Measles, MRSA (In October 2020 in the perirectal and scrotal region as above), Mumps. Denies: C- Difficile, Meningitis, Mononucleosis, Novel Coronavirus, Pertussis (Whooping Cough), Rheumatic Fever, Rubella, Scarlet Fever, Shingles, TB, VRE - Past Surgical History HEENT Surgical History: Reports: Adenoidectomy, Oral Surgery, Tonsillectomy, Other (See Below). Denies: Cataract Surgery, Eye Surgery, Laser Surgery, LASIK, Myringotomy w Tube(s), Naso-Sinus Surgery Other HEENT Surgeries/Procedures: Tonsillectomy and adenoidectomy as a child. Multiple teeth extractions with current complete upper dentures, although he is not wearing these currently secondary to poor fit. Cardiovascular Surgical History: Reports: Valve Replacement, Other (See Below). Denies: Aneurysm, Coronary Artery Bypass, Coronary Artery Stent, Pacer, Varicose, Vascular Surgery Other Cardiovascular Surgeries/Procedures: Mechanical mitral valve replacement on 12/10/1998. Bovine aortic valve replacement on 12/13/2018. Respiratory Surgical History: Reports: None. Denies: Thoracentesis GI Surgical History: Reports: Colonoscopy, EGD, Polypectomy, Other (See Below). Denies: Appendectomy, Cholecystectomy, Hernia, Abdominal, Hernia, Inguinal, Hernia Repair/Other Other GI Surgeries/Procedures: EGD in 2001 secondary to upper GI bleed as above. Colonoscopies including polypectomies on 03/10/2017 and 09/14/2014. Male Surgical History: Reports: Circumcision. Denies: TURP-Transurethral Resection of Prostate, Vasectomy Endocrine Surgical History: Reports: None. Denies: Thyroid Biopsy Neurological Surgical History: Reports: None. Denies: C-Spine, Discectomy, Laminectomy, Lumbar Spine, Sacral Spine, Spinal Fusion, Thoracic Spine, Vertebroplasty Musculoskeletal Surgical History: Reports: ORIF, Other (See Below). Denies: Arthroscopic Knee, Arthroscopic Procedure, Carpal Tunnel, Ganglion Cyst, Joint Replacement, Shoulder Surgery Other Musculoskeletal Surgeries/Procedures:: ORIF of right foot fractures in 1989. Oncologic Surgical History: Reports: None Dermatological Surgical History: Reports: None - Past Imaging History Past Imaging History: Reports: Angiography (Heart catheterization on 10/14/2018 showed 50% mid circumflex stenosis as above.), Cardiac Echo (Last echocardiogram on 11/11/2019 with ejection fraction of 55% and otherwise results as above. Previous echocardiograms on 02/16/2019, 12/13/2018, 09/19/2018, and multiple previous almost yearly echocardiograms since 01/03/2001.), Carotid US (Last on 11/15/2018 showing mild bilateral disease.), CAT Scan (CT of the abdomen and pelvis on 11/15/2018 and 03/05/2007.), PFT (08/11/2018 including diffusion studies.), Sleep Study (12/18/2008.), Stress Testing (Dobutamine Cardiolite stress test on 07/06/2002.), Ultrasound (Renal ultrasound on 02/13/2009. Abdominal aortic ultrasound on 03/31/2005.) Social & Family History - Family History Family Medical History: No Pertinent Family History HEENT: Reports: Glaucoma, Macular Degeneration, Other (See Below). Denies: Retinal Detachment Other HEENT Family History: Mother with glaucoma and macular degeneration. Cardiac: Reports: Blood Clots/VTE/DVT, CAD, Cardiomyopathy, Heart Failure, Hypertension, ME, Other (See Below). Denies: Afib, AICD, Arrhythmia, High Cholesterol, PVD/COD, Syncope Other Cardiac Family History: Father with fatal ME and CHF at age 79. Maternal grandfather with fatal ME at unknown age. Patient denies family history of coronary artery disease in his sister. Paternal uncle x2 with fatal ME in their 70s. Another paternal uncle with fatal ME at age 65. Brother with recurrent DVTs. Hypertension in multiple brothers and sisters. Respiratory: Reports: COPD, Other (See Below). Denies: Asthma, PE, Pneumothorax, Sleep Apnea Other Respiratory Family Hisory: Father and sisters x2 with a COPD with history of tobacco use. GI: Reports: None, Colon Polyps, Other (See Below). Denies: Celiac Disease, Cholelithiasis, GERD, GI bleed, Inflammatory Bowel Disease, Irritable Bowel Syndrome, PUD Other GI Family History: Sister with colon cancer as below. : Reports: Renal Calculus, Other (See Below). Denies: Renal Disease/Insufficiency Other Family History: Father and brother with urolithiasis. Sister with renal insufficiency. OBGYN: Reports: None. Denies: Endometriosis, Recurrent Spontaneous Musculoskeletal: Reports: None. Denies: Arthritis, Gout, Osteoarthritis, RA Neurological: Reports: CVA, Other (See Below). Denies: Alzheimers Disease, Cerebral Aneurysms, Dementia, Migraines, Parkinson's, Seizure, TIA Other Neurological Family History: Paternal grandfather with fatal CVA in his 70s. Psychiatric: Reports: None. Denies: Abuse, Victim of, ADD, ADHD, Anxiety, Depression, Psych Hospitalization(s), PTSD, Suicide Attempt Endocrine/Metabolic: Reports: Diabetes, type II, Other (See Below). Denies: Diabetes, Gestational, Diabetes, Type I, Diabetes Mellitus, Type 3c, Hypothyroidism, IDDM Other Endocrine/Metabolic Family History: Brother with AODM. Hematologic: Reports: None. Denies: SLE Immunologic: Reports: None. Denies: AIDS, HIV, SLE Dermatologic: Reports: None. Denies: Eczema, Psoriasis Oncologic: Reports: Colon, Ovarian, Other (See Below). Denies: Esophageal, Hodgkin's Lymphoma, Leukemia, Lymphoma, Non-Hodgkin's Lymphoma, Pancreatic, Prostate, Skin Other Oncologic Family History: Sister with fatal colon cancer in her early 60s. Maternal grandmother with fatal ovarian cancer in her 30s with the patient denying history of ovarian cancer in his mother. - Tobacco Use Tobacco Use Status *Q: Former Tobacco User Tobacco Use Within Last Twelve Months: No Years of Tobacco use: 54 Packs/Tins Daily: 1 Packs/Tins Daily Comment: Patient smoked between ages 18 through 72 with maximum use of 4 packs/day. Used Tobacco, but Quit: Yes Smoking Cessation Information Provided To Patient: No Second Hand Smoke Exposure: No Second Hand Smoke Education Provided: No - Caffeine Use Caffeine Use: Reports: Coffee (1-3 cups/day), Soda (1 soda twice per week), Tea (1 glass every couple of weeks.). Denies: Energy Drinks - Alcohol Use Alcohol Use History: No Days Per Week of Alcohol Use: 0 Number of Drinks Per Day: 0 Number of Drinks Per Day Comment: No previous DWIs, problems with alcohol abuse, etc. Total Drinks Per Week: 0 Alcohol Use in Last Twelve Months: No - Recreational Drug Use Recreational Drug Use: No Drug Use in Last 12 Months: No Recreational Drug Type: Denies: Amphetamines (Speed), Cocaine, Heroin, Inhalants (Glues, Solvents, Aerosols), LSD (Acid), Marijuana/Hashish, Methamphetamine, Morphine, Oxycodone - Living Situation & Occupation Living situation: Reports: (1967. 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 ED EXAM, GI/ABD - Physical Exam Exam: See Below Exam Limited By: No Limitations General Appearance: Alert, WD/WN, No Apparent Distress Eyes: Bilateral: Normal Appearance (No nystagmus), EOMI (PERRLA. Patient is wearing glasses. No vertigo or nystagmus.) Ears: Normal External Exam, Normal Canal, Normal TMs, Hearing Loss (Stable mild bilateral presbycusis with no hearing aids) Nose: Normal Inspection, Normal Mucosa, No Blood Throat/Mouth: Normal Lips, Normal Gums, Normal Oropharynx, Normal Voice. No: Normal Teeth (Complete dentures uppers and lowers are not being worn today), No Airway Compromise, Dysphagia, Inflammation, Perioral Cyanosis Head: Atraumatic, Normocephalic. No: Facial Swelling, Facial Tenderness, Sinus Tenderness Neck: Supple, Non-Tender, Full Range of Motion, Carotid Bruit (Mild bilateral carotid bruits versus transmitted heart sounds). No: Lymphadenopathy (R), Thyromegaly Respiratory/Chest: No Respiratory Distress, Chest Non-Tender, Rales (Mild bilateral baseline). No: Pleural Rub, Accessory Muscle Use, Retractions Cardiovascular: Normal Peripheral Pulses, No JVD, No Rub, Tachycardia, Systolic Murmur (Mild 1/6 STELLA of the aortic valve with additional stable mechanical mitral valve click), Irregularly Irregular. No: No Edema (Dependent edema as below), Gallop/S3, Gallop/S4, Friction Rub GI/Abdominal Exam: Normal Bowel Sounds, Soft, Non-Tender, No Organomegaly, No Distention, No Abnormal Bruit, No Mass, Pelvis Stable, Hernia (Stable 3 cm diameter nonincarcerated umbilical hernia), Other (Morbid obesity). No: Guarding (Male) Exam: Deferred Rectal (Males) Exam: Normal Rectal Tone, Black Stool, BPH (Moderate nonnodular), Heme + Stool. No: Bloody Stool, Fecal Impaction, Mass, Perirectal Abscess, Prostate Nodule, Rectal Fissure, Tenderness (No Ronak space tenderness ) Back Exam: Decreased Range of Motion (Stable chronic), Other (Mild scoliosis). No: CVA Tenderness (L), CVA Tenderness (R), Muscle Spasm, Paraspinal Tenderness, Vertebral Tenderness Extremities: Non-Tender, Normal Capillary Refill, Pedal Edema (Stable severe lymphedema of the lower extremities with Lisandro wrap compression dressings bila terally), Limited Range of Motion (Stable chronic). No: Magdalena's Sign Neurological: Alert, Oriented, Normal Cognition, Normal Reflexes (Negative Babinski's), Abnormal Gait (Stable chronic generalized weakness with wheelchair required) Psychiatric: Normal Affect, Normal Mood Skin Exam: Warm, Dry, Intact, No Rash, Pallor (Mild), Rash (As below), Wound/Incision (Improved mild inflammation in the perirectal scrotal region with no acute bleeding or ulceration). No: Diaphoretic Lymphatic: No Adenopathy #1 Interpretation EKG Date: 11/11/20 Time: 15:11 Rhythm: A-Fib (With possible flutter component and resolved previous PVC) Rate (Beats/Min): 83 [place]: Normal (Left) P-Wave: Variable QRS: Normal (0.09 seconds with some mild repolarization changes versus beginning incomplete right bundle branch block with stable T wave inversion in lead aVL with borderline questionable T wave inversion in lead I with likely atrial fl utter effect) ST-T: Other (As above. No peaked T waves.) QT: Normal [place]/PQ Interval: Mild poor R wave progression in the anterior leads Comparison: Change From Previous EKG (As above since 11/06/2020) EKG Interpretation Comments: 1. Atrial fibrillation with history of atrial fibrillation/flutter with rapid ventricular response and PVCs 2. Repolarization changes with questionable incomplete left bundle branch block 3. No acute ischemic changes Course - Vital Signs Last Recorded V/S: Last Vital Signs Temp 36.2 C 11/11/20 14:11 Pulse 97 11/11/20 14:11 Resp 30 H 11/11/20 16:06 BP 132/40 L 11/11/20 16:06 Pulse Ox 99 11/11/20 16:06 Vital Signs - 24 hr 11/11/20 11/11/20 11/11/20 14:11 14:15 14:30 Temperature [ 36.2 C Temporal] Pulse, 97 Peripheral [ Apical] Respiratory 32 H 35 H 33 H Rate Blood Pressure 131/55 L 105/45 L 86/74 L [Right Lower Arm] O2 Sat by Pulse 91 L 96 97 Oximetry 11/11/20 11/11/20 11/11/20 14:45 15:00 15:15 Temperature [ Temporal] Pulse, Peripheral [ Apical] Respiratory 30 H 31 H 28 H Rate Blood Pressure 98/45 L 130/58 L 102/66 [Right Lower Arm] O2 Sat by Pulse 98 97 99 Oximetry 11/11/20 11/11/20 11/11/20 15:30 15:45 16:06 Temperature [ Temporal] Pulse, Peripheral [ Apical] Respiratory 28 H 33 H 30 H Rate Blood Pressure 121/54 L 91/41 L 132/40 L [Right Lower Arm] O2 Sat by Pulse 99 99 99 Oximetry - Orders/Labs/Meds Orders: Active Orders 24 hr Category Date Time Status Cardiac Monitoring [RC] . DIRECTED Care 11/11/20 14:06 Active EKG Documentation Completion [RC] ASDIRECTED Care 11/11/20 15:09 Active Peripheral IV Care [RC] . DIRECTED Care 11/11/20 14:02 Active Nothing Per Oral Diet [DIET] Diet 11/11/20 Breakfast Active Abdomen Series w Chest 1V [CR] Stat Exams 11/11/20 14:01 Ordered CORONAVIRUS COVID-19 SOLEDAD [MOLEC] Stat Lab 11/11/20 15:44 Ordered CULTURE BLOOD [BC] Stat Lab 11/11/20 14:18 Ordered CULTURE URINE [RM] Stat Lab 11/11/20 15:05 Received Dextrose 50% in Water Med 11/11/20 14:48 Active 50 ml IV ASDIRECTED PRN Glucagon,Human Recombinant [GlucaGen] Med 11/11/20 14:48 Active 1 mg IM ASDIRECTED PRN Sodium Chloride 0.9% [Saline Flush] Med 11/11/20 14:01 Active 10 ml FLUSH ASDIRECTED PRN cefTRIAXone [Rocephin] Med 11/11/20 15:15 Active 2 gm IVPUSH Q24H Blood Culture x2 Reflex Set [OM.PC] Urgent Oth 11/11/20 14:18 Ordered Isolation [COMM] Routine Oth 11/11/20 14:17 Active Obtain Past Medical Record [OM.PC] Urgent Oth 11/11/20 14:01 Active Peripheral IV Insertion Adult [OM.PC] Stat Oth 11/11/20 14:01 Ordered Resuscitation Status Stat Resus Stat 11/11/20 14:01 Ordered Medication Orders Ceftriaxone Sodium (Ceftriaxone 2 Gm Vial) 2 gm IVPUSH Q24H SRIDHAR Last Admin: 11/11/20 15:18 Dose: 2 gm Documented by: FRANKIE Dextrose/Water (50% Dextrose In Water 50 Ml Syringe) 50 ml IV ASDIRECTED PRN PRN Reason: Hypoglycemia Glucagon (Glucagon,Human Recombinant 1 Mg Vial) 1 mg IM ASDIRECTED PRN PRN Reason: Hypoglycemia Sodium Chloride (Sodium Chloride 0.9% 10 Ml Syringe) 10 ml FLUSH ASDIRECTED PRN PRN Reason: Keep Vein Open Last Admin: 11/11/20 14:23 Dose: 10 ml Documented by: MEHUL Labs: Laboratory Tests 11/11/20 11/11/20 11/11/20 Range/Units 14:06 14:10 14:10 WBC 12.7 H (4.0-10.2) K/uL RBC 2.45 L (4.33-5.41) M/uL Hgb 7.1 L* D (13.1-16.8) g/dL Hct 24.4 L* (39.0-49.0) % MCV 99.6 H (84.0-98.0) fL MCH 29.0 (28.2-33.3) pg MCHC 29.1 L (31.7-36.0) g/dL RDW 14.2 H (11.2-14.1) % Plt Count 252 (150-350) K/uL Neut % (Auto) 81.5 H (45.0-80.0) % Lymph % (Auto) 11.2 (10.0-50.0) % Hill % (Auto) 6.9 (2.0-14.0) % Eos % (Auto) 0.1 (0.0-5.0) % Baso % (Auto) 0.3 (0.0-2.0) % Neut # (Auto) 10.34 H (1.40-7.00) K/uL Lymph # (Auto) 1.42 (0.50-3.50) K/uL Hill # (Auto) 0.88 (0.00-1.00) K/uL Eos # (Auto) 0.01 (0.00-0.50) K/uL Baso # (Auto) 0.04 (0.00-0.20) K/uL PT (9.5-12.0) SEC INR APTT (24.5-32.8) SEC Sodium (136-145) mmol/L Potassium (3.5-5.1) mmol/L Chloride (98-107) mmol/L Carbon Dioxide (21.0-32.0) mmol/L BUN (7-18) mg/dL Creatinine (0.51-1.17) mg/dL Est Cr Clr Drug Dosing mL/min Estimated GFR (MDRD) mL/min Glucose (70-99) mg/dL Lactic Acid (0.4-2.0) mmol/L Uric Acid (2.6-7.2) mg/dL Calcium (8.5-10.1) mg/dL Magnesium (1.8-2.4) mg/dL Total Bilirubin (0.2-1.0) mg/dL AST (15-37) U/L ALT (12-78) U/L Alkaline Phosphatase (46-116) IU/L Total Protein (6.4-8.2) g/dL Albumin (3.4-5.0) g/dL Amylase 56 (25-115) U/L Lipase (73-393) U/L Blood Type A POSITIVE 11/11/20 11/11/20 11/11/20 Range/Units 14:10 14:10 14:10 WBC (4.0-10.2) K/uL RBC (4.33-5.41) M/uL Hgb (13.1-16.8) g/dL Hct (39.0-49.0) % MCV (84.0-98.0) fL MCH (28.2-33.3) pg MCHC (31.7-36.0) g/dL RDW (11.2-14.1) % Plt Count (150-350) K/uL Neut % (Auto) (45.0-80.0) % Lymph % (Auto) (10.0-50.0) % Hill % (Auto) (2.0-14.0) % Eos % (Auto) (0.0-5.0) % Baso % (Auto) (0.0-2.0) % Neut # (Auto) (1.40-7.00) K/uL Lymph # (Auto) (0.50-3.50) K/uL Hill # (Auto) (0.00-1.00) K/uL Eos # (Auto) (0.00-0.50) K/uL Baso # (Auto) (0.00-0.20) K/uL PT 36.8 H D (9.5-12.0) SEC INR 3.8 APTT 37.0 H (24.5-32.8) SEC Sodium 141 (136-145) mmol/L Potassium 6.1 H* D (3.5-5.1) mmol/L Chloride 104 (98-107) mmol/L Carbon Dioxide 31.9 (21.0-32.0) mmol/L BUN 141 H* D (7-18) mg/dL Creatinine 1.61 H (0.51-1.17) mg/dL Est Cr Clr Drug Dosing 43.42 mL/min Estimated GFR (MDRD) 42 mL/min Glucose 169 H (70-99) mg/dL Lactic Acid 3.0 H (0.4-2.0) mmol/L Uric Acid 8.8 H (2.6-7.2) mg/dL Calcium 8.7 (8.5-10.1) mg/dL Magnesium 1.8 (1.8-2.4) mg/dL Total Bilirubin 0.4 (0.2-1.0) mg/dL AST 19 (15-37) U/L ALT 17 (12-78) U/L Alkaline Phosphatase 61 (46-116) IU/L Total Protein 6.4 (6.4-8.2) g/dL Albumin 2.9 L (3.4-5.0) g/dL Amylase (25-115) U/L Lipase 166 (73-393) U/L Blood Type Microbiology 11/11/20 15:37 Influenza Type A Antigen Screen - Final Nasal, Unspecified NEGATIVE INFLUENZA A VIRUS AG REFERENCE RANGE: NEGATIVE Influenza Type B Antigen Screen - Final NEGATIVE INFLUENZA B VIRUS AG REFERENCE RANGE: NEGATIVE 11/11/20 14:10 Stool Occult Blood (ASHISH) - Final Stool / Feces Hemoccult positive Meds: Medications Generic Name Dose Route Start Last Admin Trade Name Freq PRN Reason Stop Dose Admin Ceftriaxone Sodium 2 gm 11/11/20 15:15 11/11/20 15:18 Ceftriaxone 2 Gm Vial IVPUSH 2 gm Q24H SRIDHAR Administration Dextrose/Water 50 ml 11/11/20 14:48 50% Dextrose In Water 50 Ml Syringe IV ASDIRECTED PRN Hypoglycemia Glucagon 1 mg 11/11/20 14:48 Glucagon,Human Recombinant 1 Mg Vial IM ASDIRECTED PRN Hypoglycemia Sodium Chloride 10 ml 11/11/20 14:01 11/11/20 14:23 Sodium Chloride 0.9% 10 Ml Syringe FLUSH 10 ml ASDIRECTED PRN Administration Keep Vein Open Discontinued Medications Generic Name Dose Route Start Last Admin Trade Name Freq PRN Reason Stop Dose Admin Famotidine 40 mg 11/11/20 14:01 11/11/20 14:21 Famotidine 20 Mg/2 Ml Sdv IVPUSH 11/11/20 14:02 40 mg ONETIME ONE Administration Furosemide 40 mg 11/11/20 15:22 11/11/20 15:34 Furosemide 40 Mg/4 Ml Vial IVPUSH 11/11/20 15:23 40 mg NOW ONE Administration Lactated Ringer's 1,000 mls @ 999 mls/hr 11/11/20 14:01 11/11/20 14:19 Ringers, Lactated IV 11/11/20 15:01 999 mls/hr .BOLUS ONE Administration Sodium Chloride 1,000 mls @ 999 mls/min 11/11/20 14:47 11/11/20 14:49 Normal Saline IV 11/11/20 14:48 999 mls/min .BOLUS ONE Administration Phytonadione 5 mg/ Sodium 50.5 mls @ 100 mls/hr 11/11/20 15:08 11/11/20 15:19 Chloride IV 11/11/20 15:38 100 mls/hr NOW ONE Administration Insulin Human Regular 10 unit 11/11/20 14:48 11/11/20 15:18 Insulin Regular, Human 100 Units/Ml 3 Ml Vial IV 11/11/20 14:49 10 unit ONETIME ONE Administration Pantoprazole Sodium 40 mg 11/11/20 14:01 11/11/20 14:22 Pantoprazole 40 Mg Vial IVPUSH 11/11/20 14:02 40 mg ONETIME ONE Administration Sodium Polystyrene Sulfonate 15 gm 11/11/20 14:49 11/11/20 15:19 Sodium Polystyrene Sulfonate 15 Gm/60 Ml Susp 60 Ml Bot PO 11/11/20 14:50 15 gm ONETIME ONE Administration - Radiology Interpretation Free Text/Narrative:: laboratory monitor shows atrial fibrillation with average heart rate at rest in the 90s to low 100s with occasional moderate tachycardia in the 120s with only minimal activity. No other ectopy or arrhythmia noted. Note improved heart rate in the 80s to 90s at rest with aggressive treatment in the emergency room Acute abdominal x-rays, portable, shows severe cardiomegaly with mild borderline mostly centralized CHF, although a mild to moderate right pleural effusion was noted. Note elevated right hemidiaphragm. Status post medial sternotomy secondary to previous valvular surgery as above. Moderate COPD changes with no evidence of significant pulmonary infiltrates, pneumothorax, etc. Moderate stool with no evidence of free air, fluid levels, ileus, or obstruction. Departure - Departure Time of Disposition: 16:10 Disposition: DC/Tfer to [facility] 02 Condition: Fair Clinical Impression: Peptic reflux disease, MRSA (methicillin resistant staph aureus) culture positive, Renal insufficiency, Hyperuricemia, Valvular heart disease, Hyperkalemia, Elevated lactic acid level COPD (chronic obstructive pulmonary disease) Qualifiers: COPD type: emphysema Emphysema type: panlobular Qualified Code(s): J43.1 - Panlobular emphysema Hypertension Qualifiers: Hypertension type: essential hypertension Qualified Code(s): I10 - Essential (primary) hypertension Abdominal pain Qualifiers: Abdominal location: generalized Qualified Code(s): R10.84 - Generalized abdominal pain Osteoarthritis Qualifiers: Osteoarthritis location: multiple joints Osteoarthritis type: primary Qualified Code(s): M89.49 - Other hypertrophic osteoarthropathy, multiple sites GI bleed Qualifiers: GI bleed type/associated pathology: unspecified gastrointestinal hemorrhage type Qualified Code(s): K92.2 - Gastrointestinal hemorrhage, unspecified Atrial fibrillation Qualifiers: Atrial fibrillation type: longstanding persistent Qualified Code(s): I48.11 - Longstanding persistent atrial fibrillation CHF (congestive heart failure) Qualifiers: Heart failure type: combined systolic and diastolic Heart failure chronicity: acute on chronic Qualified Code(s): I50.43 - Acute on chronic combined systolic (congestive) and diastolic (congestive) heart failure Diabetic nephropathy Qualifiers: Diabetes mellitus type: type 2 Qualified Code(s): E11.21 - Type 2 diabetes mellitus with diabetic nephropathy - Discharge Information *PRESCRIPTION DRUG MONITORING PROGRAM REVIEWED*: Not Applicable *COPY OF PRESCRIPTION DRUG MONITORING REPORT IN PATIENT KELLIE: Not Applicable Referrals: Filipe Stover PA [Primary Care Provider] - Forms: ED Department Discharge, Interfacility Transfer EMTALA Additional Instructions: Ambulance transfer as below. Sepsis Event Note (ED) - Focused Exam Vital Signs: Vital Signs Temp Pulse Resp BP Pulse Ox 11/11/20 16:06 30 H 132/40 L 99 11/11/20 15:45 33 H 91/41 L 99 11/11/20 15:30 28 H 121/54 L 99 11/11/20 15:15 28 H 102/66 99 11/11/20 15:00 31 H 130/58 L 97 11/11/20 14:45 30 H 98/45 L 98 11/11/20 14:30 33 H 86/74 L 97 11/11/20 14:15 35 H 105/45 L 96 11/11/20 14:11 36.2 C 97 32 H 131/55 L 91 L - Problem List & Annotations (1) GI bleed SNOMED Code(s): 67588214 Code(s): K92.2 - GASTROINTESTINAL HEMORRHAGE, UNSPECIFIED Status: Acute Priority: High Current Visit: Yes Onset Date: 11/11/20 Annotation/Comment:: Telephone consultation at 2:[address] Isbell, emergency room physician at [facility], who does accept the patient for direct admission. He does agree to contact the hospitalist concerning this patient transfer. Vitamin K 5 mg IV given prior to transfer. Although INR is only mildly increased to 3.83 significant decrease of his hemoglobin to 7.1 today after hemoglobins ranging between 9.7 and 10.0 during his recent hospitalization in this facility. Note last hemoglobin of 9.7 on 11/06/2020. The patient was recently prescribed doxycycline for his MRSA cellulitis as above. Unfortunately factor VII is not available in our facility and fresh frozen plasma could not be thawed in time prior to patient's transfer to [place] as above. The lab was also unable to properly type the patient's blood for an unknown reason. Vital signs improved at time of transfer with stable physical examination. Ambulance transfer to [facility] with tool coordinator accompaniment. Note previous distant severe GI bleed secondary to NSAID abuse in about 2001 as above. Patient denies any current NSAID or significant change in his Tylenol therapy, etc.. Probable GI consultation at time of patient's arrival to [place]. Qualifiers: GI bleed type/associated pathology: unspecified gastrointestinal hemorrhage type Qualified Code(s): K92.2 - Gastrointestinal hemorrhage, unspecified (2) Elevated lactic acid level SNOMED Code(s): 5878301 Code(s): R79.89 - OTHER SPECIFIED ABNORMAL FINDINGS OF BLOOD CHEMISTRY Status: Acute Priority: High Current Visit: Yes Onset Date: 11/11/20 Annotation/Comment:: Patient does meet sepsis criteria secondary to tachycardia, hypotension, and previous possible fevers, although these were not measured. Initially lactated Ringer's by means of IV bolus was initiated, however this was soon changed to normal saline secondary to patient's hyperkalemia. IV fluids will be continued in route. Blood cultures x2 were collected. Chest x-ray does not show any evidence of acute pneumonia. Note current mild MRSA cellulitis. 2 g IV Rocephin given in the emergency room. Lactic acid level to be repeated by accepting providers as per standard sepsis protocol. (3) Hyperkalemia SNOMED Code(s): 15647811 Code(s): E87.5 - HYPERKALEMIA Status: Acute Priority: High Current Visit: Yes Onset Date: 11/11/20 Annotation/Comment:: IV Humulin regular insulin, oral Kayexalate, and IV Lasix therapy initiated as above. EKG does not show any evidence of peaked T waves. (4) COPD (chronic obstructive pulmonary disease) SNOMED Code(s): 29942142 Code(s): J44.9 - CHRONIC OBSTRUCTIVE PULMONARY DISEASE, UNSPECIFIED Status: Acute Priority: High Current Visit: Yes Annotation/Comment:: Known O2 dependent COPD with baseline O2 requirement of 3 L/min by nasal cannula on continuous basis. Patient also has sleep apnea and is compliant with his home CPAP with unit sent with the patient to [facility]. No recent fever or bronchitic type symptoms. Qualifiers: COPD type: emphysema Emphysema type: panlobular Qualified Code(s): J43.1 - Panlobular emphysema (5) Hypertension SNOMED Code(s): 54235535 Code(s): I10 - ESSENTIAL (PRIMARY) HYPERTENSION Status: Chronic Priority: Medium Current Visit: Yes Annotation/Comment:: Continue to observe closely with IV Lasix given with caution secondary to his history of CHF, right pleural effusion, and hyperkalemia. Note that IV Lasix was only initiated after improved systolic blood pressures initially in the 130s in our emergency room. Continue to observe closely by accepting providers. Note probable ICU care at [facility] in [place]. Qualifiers: Hypertension type: essential hypertension Qualified Code(s): I10 - Essential (primary) hypertension (6) Hyperuricemia SNOMED Code(s): 66712248 Code(s): E79.0 - HYPERURICEMIA W/O SIGNS OF INFLAM ARTHRIT AND TOPHACEOUS DIS Status: Acute Priority: Low Current Visit: Yes Onset Date: 11/01/20 Annotation/Comment:: Newly diagnosed during recent hospitalization in October 2020. Note current high-dose Bumex therapy. Continue to observe closely by accepting providers. No history of gout type symptoms. (7) Hypoalbuminemia SNOMED Code(s): 998416587 Code(s): E88.09 - OTH DISORDERS OF PLASMA-PROTEIN METABOLISM, NEC Status: Acute Priority: Medium Current Visit: Yes Onset Date: 11/06/19 Annotation/Comment:: Normalized on 11/07/19, however returned today. Observe for now. (8) MRSA (methicillin resistant staph aureus) culture positive SNOMED Code(s): 597913505 Code(s): Z22.322 - CARRIER OR SUSPECTED CARRIER OF METHICILLIN RESIS STAPH Status: Acute Priority: Medium Current Visit: Yes Onset Date: ~11/06/20 Annotation/Comment:: Note recent doxycycline therapy with improved findings today. (9) Anemia SNOMED Code(s): 193216585 Code(s): D64.9 - ANEMIA, UNSPECIFIED Status: Chronic Priority: High Current Visit: Yes Onset Date: ~11/08/19 Annotation/Comment:: Note evidence of GI bleed as above. Blood studies during recent hospitalization October 2020 suggest anemia of chronic disease pattern with additional iron deficiency with decreased iron level and normal ferritin level, vitamin B12 and folic acid levels on 11/02/2020. Continue to observe closely by accepting providers with my vitamin and iron supplementation currently on hold secondary to recent doxycycline therapy as above. Qualifiers: Anemia type: iron deficiency Iron deficiency anemia type: other iron deficiency Qualified Code(s): D50.8 - Other iron deficiency anemias (10) Atrial fibrillation SNOMED Code(s): 60984268 Code(s): I48.91 - UNSPECIFIED ATRIAL FIBRILLATION Status: Chronic Priority: Medium Current Visit: Yes Annotation/Comment:: INR elevated as above secondary to recent doxycycline therapy. Therapeutic INRs throughout recent hospitalization. No chest pain or anginal type symptoms. With no significant change in EKG since last EKG on 11/06/2020 as above. Qualifiers: Atrial fibrillation type: longstanding persistent Qualified Code(s): I48.11 - Longstanding persistent atrial fibrillation (11) CHF (congestive heart failure) SNOMED Code(s): 49868745 Code(s): I50.9 - HEART FAILURE, UNSPECIFIED Status: Chronic Priority: High Current Visit: Yes Annotation/Comment:: Note recent hospitalization this facility for CHF has above. Persistent right pleural effusion with low- dose IV Lasix given with caution in the emergency room as above. Qualifiers: Heart failure type: combined systolic and diastolic Heart failure chronicity: acute on chronic Qualified Code(s): I50.43 - Acute on chronic combined systolic (congestive) and diastolic (congestive) heart failure (12) Peptic reflux disease SNOMED Code(s): 606167003 Code(s): K21.9 - GASTRO-ESOPHAGEAL REFLUX DISEASE WITHOUT ESOPHAGITIS Status: Chronic Priority: High Current Visit: Yes Annotation/Comment:: High-dose IV Pepcid and IV Protonix given in the emergency room secondary to probable acute upper GI bleed. GI consultation as above. (13) Valvular heart disease SNOMED Code(s): 676203 Code(s): I38 - ENDOCARDITIS, VALVE UNSPECIFIED Status: Chronic Priority: Medium Current Visit: Yes Annotation/Comment:: Note status post mechanical mitral valve replacement with subsequent bovine aortic valve replacement as above. No chest pain or anginal type symptoms. (14) Diabetic nephropathy Status: Chronic Priority: High Current Visit: Yes Annotation/Comment:: No significant progressive BUN likely secondary to acute GI bleed with additional mild increase of his creatinine. Continue to observe renal status closely by accepting providers. Qualifiers: Diabetes mellitus type: type 2 Qualified Code(s): E11.21 - Type 2 diabetes mellitus with diabetic nephropathy - Problem List Review Problem List Initiated/Reviewed/Updated: Yes - My Orders Last 24 Hours: My Active Orders 11/11/20 Breakfast Nothing Per Oral Diet [DIET] 11/11/20 14:01 Abdomen Series w Chest 1V [CR] Stat Sodium Chloride 0.9% [Saline Flush] 10 ml FLUSH ASDIRECTED PRN Obtain Past Medical Record [OM.PC] Urgent Peripheral IV Insertion Adult [OM.PC] Stat Resuscitation Status Stat 11/11/20 14:02 Peripheral IV Care [RC] . DIRECTED 11/11/20 14:06 Cardiac Monitoring [RC] . DIRECTED 11/11/20 14:17 Isolation [COMM] Routine 11/11/20 14:18 CULTURE BLOOD [BC] Stat Blood Culture x2 Reflex Set [OM.PC] Urgent 11/11/20 14:48 Dextrose 50% in Water 50 ml IV ASDIRECTED PRN Glucagon,Human Recombinant [GlucaGen] 1 mg IM ASDIRECTED PRN 11/11/20 15:05 CULTURE URINE [RM] Stat 11/11/20 15:09 EKG Documentation Completion [RC] ASDIRECTED 11/11/20 15:15 cefTRIAXone [Rocephin] 2 gm IVPUSH Q24H 11/11/20 15:44 CORONAVIRUS COVID-19 [facility] [MOLEC] Stat - Assessment/Plan Last 24 Hours: My Active Orders 11/11/20 Breakfast Nothing Per Oral Diet [DIET] 11/11/20 14:01 Abdomen Series w Chest 1V [CR] Stat Sodium Chloride 0.9% [Saline Flush] 10 ml FLUSH ASDIRECTED PRN Obtain Past Medical Record [OM.PC] Urgent Peripheral IV Insertion Adult [OM.PC] Stat Resuscitation Status Stat 11/11/20 14:02 Peripheral IV Care [RC] . DIRECTED 11/11/20 14:06 Cardiac Monitoring [RC] . DIRECTED 11/11/20 14:17 Isolation [COMM] Routine 11/11/20 14:18 CULTURE BLOOD [BC] Stat Blood Culture x2 Reflex Set [OM.PC] Urgent 11/11/20 14:48 Dextrose 50% in Water 50 ml IV ASDIRECTED PRN Glucagon,Human Recombinant [GlucaGen] 1 mg IM ASDIRECTED PRN 11/11/20 15:05 CULTURE URINE [RM] Stat 11/11/20 15:09 EKG Documentation Completion [RC] ASDIRECTED 11/11/20 15:15 cefTRIAXone [Rocephin] 2 gm IVPUSH Q24H 11/11/20 15:44 CORONAVIRUS COVID-19 [facility] [MOLEC] Stat Assessment:: As above. Plan: As above. Extensive precautions were given to the patient and his , who are in agreement with the treatment plan. [facility] as above.
[2020-11-11 14:19] VITALS: PULSE 97
[2020-11-11] MEDS ORDERED: Sodium Chloride 0.9% 1,000 ML IV ONE (14:47)
[2020-11-11] MEDS ORDERED: Insulin Regular, Human 100 Units/ML 3 ML Vial IV ONE (14:48)
[2020-11-11] MEDS ORDERED: Glucagon,Human Recombinant 1 MG Vial IM PRN (14:48)
[2020-11-11] MEDS ORDERED: 50% Dextrose in Water 50 ML Syringe IV PRN (14:48)
[2020-11-11] MEDS ORDERED: Sodium Polystyrene Sulfonate 15 GM/60 ML Susp 60 ML Bot PO ONE (14:49)
[2020-11-11] MEDS ORDERED: Phytonadione 5 MG in Sodium Chloride 0.9% 50 ML IV ONE (15:08)
[2020-11-11] MEDS ORDERED: cefTRIAXone 2 GM Vial IVPUSH SCH (15:15)
[2020-11-11] MEDS ORDERED: Furosemide 40 MG/4 ML VIAL IVPUSH ONE (15:22)
[2020-11-11 16:07] VITALS: BP 132/40
== END 2020-11-11 16:20 ==
LOC: LL.ED 14:00
DX: J43.1 Panlobular emphysema (principal); K27.4 Chronic or unspecified peptic ulcer, site unspecified, with hemorrhage; I13.0 Hypertensive heart and chronic kidney disease with heart failure and stage 1 through stage 4 chronic kidney disease, or unspecified chronic kidney disease; E11.22 Type 2 diabetes mellitus with diabetic chronic kidney disease; N18.9 Chronic kidney disease, unspecified; I50.43 Acute on chronic combined systolic (congestive) and diastolic (congestive) heart failure; D63.1 Anemia in chronic kidney disease; E11.21 Type 2 diabetes mellitus with diabetic nephropathy; I48.11 Longstanding persistent atrial fibrillation; M89.49 Other hypertrophic osteoarthropathy, multiple sites; E79.0 Hyperuricemia without signs of inflammatory arthritis and tophaceous disease; I38 Endocarditis, valve unspecified; E87.5 Hyperkalemia; R74.01 Elevation of levels of liver transaminase levels; B95.62 Methicillin resistant Staphylococcus aureus infection as the cause of diseases classified elsewhere; I25.10 Atherosclerotic heart disease of native coronary artery without angina pectoris; E78.00 Pure hypercholesterolemia, unspecified; E11.42 Type 2 diabetes mellitus with diabetic polyneuropathy; E66.9 Obesity, unspecified; Z87.891 Personal history of nicotine dependence; Z79.899 Other long term (current) drug therapy; Z20.822 Contact with and (suspected) exposure to COVID-19
CPT/HCPCS: 36415; 74022; 80053; 82150; 82272; 83605; 83690; 83735; 84550; 85025; 85610; 85730; 86900; 86901; 87040; 87086; 87088; 87186; 87804; 93005; 93010; 96365; 96375; 99285; 99285-25; A9270-GY; C9113; J0696; J1815-GY; J1940; J3430; J3490; J7030; J7120; U0002